=== PATIENT | male | born 1980 | race Two or more races ===

== ENCOUNTER → 2025-03-10 | Outpatient (CLI) | payer SELFPAY ==
--- NOTE | 2025-03-10 14:46 | XR_ITS ---
Examination: Fingers, right hand fourth digit 3 views Technique: AP, oblique, lateral views right hand fourth digit 3 views. Exam date and time: March 10, 2025 1448 hours INDICATIONS: Pain and swelling involving the fourth digit post injury February 20, 2025 FINDINGS: Soft tissue swelling fourth digit No foreign body No ga cortical bone destruction IMPRESSION: No ga cortical bone destruction
== END | disposition home or self-care (01) ==
DX: S69.91XA Unspecified injury of right wrist, hand and finger(s), initial encounter (principal); X58.XXXA Exposure to other specified factors, initial encounter
CPT/HCPCS: 73140

== ENCOUNTER 2025-05-06 12:26 | Inpatient (IN) | payer MEDICAID, SELFPAY ==
[2025-05-06 12:38] VITALS: BP 122/82; PULSE 81; RESP 17; TEMP 36.9; O2SAT 97
--- NOTE | 2025-05-06 12:43 | XR_ITS ---
Examination: Duplex scan of the lower extremity, unilateral left complete Date and time of exam: May 06, 2025 1339 hours INDICATIONS: Left leg redness swelling and pain beginning 6 days ago Technique: Duplex scan of the extremity veins using B-mode/grayscale imaging and Doppler spectral analysis and color flow Attention is directed to internal echogenicity, compression and augmentation involving these veins, color flow assessment, spectral analysis Findings: Major deep venous structures in the extremity demonstrate normal course and caliber. There is no evidence of deep vein thrombosis. Normal color flow and spectral analysis Impression: Negative for DVT..
--- NOTE | 2025-05-06 12:44 | PD.EDRME ---
Rapid Medical Screening Exam E Arrival date/time: 05/06/25 12:26 45-year-old male with no known medical history presents to the emergency room with a chief complaint of swelling and tenderness to his left leg. The swelling starts in the calf and extends all the way to the thigh. Patient has had this swelling for the last 8 days and was sent over by his primary care provider to rule out DVT I have greeted and performed a focused initial assessment of this patient. A comprehensive ED assessment and evaluation of the patient, analysis of all test results, and completion of the medical decision making process will be conducted by additional ED providers. Chief Complaint: Extremity Problem,Nontraumatic Time Seen by Provider: 05/06/25 12:31 Vital signs: Vital Signs Temperature 98.4 F 05/06/25 12:38 Pulse Rate 81 05/06/25 12:38 Respiratory Rate 17 05/06/25 12:38 Blood Pressure 122/82 05/06/25 12:38 Pulse Oximetry (%) 97 05/06/25 12:38 Oxygen Delivery Method Room Air 05/06/25 12:38 Vital signs reviewed by provider: Yes
[2025-05-06 13:26] LABS: Basophils # (Auto) 0.0 Thou/mm3 (0.0-0.2); Basophils % (Auto) 0 % (0-2.5); Eosinophils # (Auto) 0.1 Thou/mm3 (0.0-0.5); Eosinophils % (Auto) 0 % (0-10); Hematocrit 40.5 % (41.0-53.0); Hemoglobin 13.4 g/dL (13.5-16.0); Immature Granulocytes Auto 0.12 Thou/mm3 (0.00-0.00); Lymphocytes # (Auto) 3.2 Thou/mm3 (1.0-4.8); Lymphocytes % (Auto) 23 % (10-50); Mean Corpuscular HGB Conc 33.1 g/dl (31.0-37.0); Mean Corpuscular Hemoglobin 29.6 pg (25.0-35.0); Mean Corpuscular Volume 89 fL (80-100); Monocytes # (Auto) 0.7 Thou/mm3 (0.0-0.8); Monocytes % (Auto) 5 % (0-12); Neutrophils # (Auto) 9.9 Thou/mm3 (1.8-7.7); Neutrophils % (Auto) 71 % (37-80); Nucleated Red Blood Cell # 0.00 Thou/mm3 (0.00-0.00); Nucleated Red Blood Cell % 0 /100 WBC (0); Platelet Count 262 Thou/mm3 (140-440); RDW Standard Deviation 43.8 fL (35.1-43.9); Red Blood Count 4.53 Miln/mm3 (4.50-5.90); White Blood Count 13.9 Thou/mm3 (3.8-10.6)
[2025-05-06 13:41] LABS: INR 1.0 (0.9-1.3); Partial Thromboplastin Time 27.4 Seconds (22.0-36.0); Prothrombin Time 11.4 Seconds (9.0-12.2)
[2025-05-06 13:44] LABS: Alanine Aminotransferase 27 U/L (10-49); Albumin, Serum 3.8 gm/dL (3.5-5.0); Albumin/Globulin Ratio 1.4 (1.2-2.2); Alkaline Phosphatase 67 U/L (46-116); Anion Gap 11 (7-16); Aspartate Amino Transferase 21 U/L (0-34); BUN/Creatinine Ratio 23 Ratio (12-20); Bilirubin,Total 0.7 mg/dL (0.3-1.2); Blood Urea Nitrogen 16 mg/dL (9-23); Calcium 9.0 mg/dL (8.3-10.6); Calcium (Corrected) 9.2 mg/dL (8.5-10.1); Carbon Dioxide 24.1 mMol/L (20.0-31.0); Chloride 103 mMol/L (98-107); Creatinine (Component) 0.7 mg/dL (0.6-1.3); Globulin 2.7 gm/dL (2.3-3.5); Glucose 163 mg/dL (74-106); Osmolality,Calculated 280 (275-295); Potassium 3.3 mMol/L (3.4-5.1); Sodium 138 mMol/L (136-145); Total Protein 6.5 gm/dL (5.7-8.2); eGFR > 60 See Note
[2025-05-06 16:35] VITALS: BP 136/89; PULSE 69; RESP 18; TEMP 36.8; O2SAT 99
--- NOTE | 2025-05-06 16:40 | XR_ITS ---
Examination: CT left lower leg with intravenous contrast 2-D sagittal reconstructions. 2-D coronal reconstructions. 3-D reconstructions. Date and time of exam:May 06, 2025 1803 hrs. Indications: Left lower leg redness swelling and pain beginning one week ago CTDI: vol (mGy):5.61 DLP: (mGycm):416 Technique: Multiple 1.25 mm axial sections of the left lower extremity post intravenous administration 60 cc Isovue-[id number] have been obtained. 2-D sagittal and coronal reconstructions have been obtained. 3-D reconstructions have been obtained. Low dose protocols were performed. One or more of the following dose reduction techniques were used; automated exposure control, adjustment of the mA and/or KV according to patient size, use of iterative reconstruction technique. Findings: Significant knee effusion Irregular fluid collections posterior knee on the medial side, poorly defined, most consistent with popliteal cyst Fluid collection consistent with hematoma between the medial head of the gastrocnemius and the soleus muscle measuring up to 23 mm in thickness and at least 6.8 cm in cephalocaudad dimension No ga cortical bone destruction Significant edema surrounding the lower leg Impression: Significant knee effusion and probable popliteal cyst on the posterior medial side of the knee, consider internal derangement of the knee, suggest elective MRI knee without contrast follow-up 6.8 x 2.3 cm fluid/hematoma collection between the medial head of the gastrocnemius and soleus muscle, differential would include tear of the plantaris tendon,, abscess not excluded Recommend MRI lower leg without contrast follow-up
--- NOTE | 2025-05-06 16:48 | PD.EDEXREM ---
ED Extremity Problem RME/HPI General Chief complaint: Extremity Problem,Nontraumatic Stated complaint: Left lower leg swelling X 6 days Time Seen by Provider: 05/06/25 12:31 Arrival date/time: 05/06/25 12:26 RME / HPI RME / HPI Narrative: 05/06/25 12:26 45-year-old male with no known medical history presents to the emergency room with a chief complaint of swelling and tenderness to his left leg. The swelling starts in the calf and extends all the way to the thigh. Patient has had this swelling for the last 8 days and was sent over by his primary care provider to rule out DVT I have greeted and performed a focused initial assessment of this patient. A comprehensive ED assessment and evaluation of the patient, analysis of all test results, and completion of the medical decision making process will be conducted by additional ED providers. DR. PETERSON CAST ED EVALUATION 45 year old male with no stated medical history presents to the ED with progressive left lower extremity swelling and pain beginning 8 days ago. States the pain began in the posterior aspect of the left knee and have gradually worsened, now radiating down the leg. Describes the pain as a burning sensation and reports associated redness and increased warmth from the knee down to his foot. 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 He continued working despite his symptoms. Denies any trauma, insect bites, open wounds, or prior similar episodes. Related Data Previous Rx's ?Medication ?Instructions ?Recorded ibuprofen 600 mg tablet 600 mg PO QID PRN pain #40 tabs 05/23/21 Allergies Allergy/AdvReac Type Severity Reaction Status Date / Time No Known Allergies Allergy Verified 05/23/25 18:13 Review of Systems Review of Systems Systems Reviewed: All systems reviewed, normal except as documented Past Medical History Past Medical History CARDIAC: Negative Cardiac Disorders RESPIRATORY: Negative Asthma GENITOURINARY: Negative Renal Disease ENDOCRINE: Negative Diabetes Mellitus Type 2 HEMATOLOGIC: Negative Sickle Cell Disease Social History SMOKING STATUS: Never smoker ED Exam Narrative Physical exam: GENERAL APPEARANCE: alert and oriented x 4, well-developed, well-nourished, no acute distress HEENT: Normocephalic, atraumatic; pupils equal, round, reactive to light; EOMI; mucous membranes pink, moist; oropharynx clear NECK: Supple LUNGS: CTABL; no wheezes, no rales, no rhonchi HEART: Regular rate, regular rhythm; normal S1, S2; no murmurs ABDOMEN: non distended; normal BS; soft, no tenderness, no guarding, no rebound; no masses, no organomegaly, no hernia BACK: no CVA tenderness EXTREMITIES: 3+ edema and erythema with tenderness to palpation of the left lower extremity, good capillary refill, good pedal pulses NEUROLOGIC: awake; alert and oriented x4; cranial nerves II-XII grossly intact; no focal sensory or motor deficits PSYCHIATRIC: appropriate mood and affect SKIN: warm, dry, normal color; no rashes Course Quality Measures none Orders Category Date Time Status COVID-19 Screening Questionnaire NOW Care 05/06/25 21:[address] Screening NOW Care 05/06/25 16:42 Completed Insert IV NOW Care 05/06/25 17:09 Completed MRI Screening NOW Care 05/06/25 19:[address] lower leg LT w con Stat Exams 05/06/25 16:40 Completed US venous doppler LE LT Stat Exams 05/06/25 12:43 Completed CBC Stat Lab 05/06/25 13:15 Completed CMP [Comprehensive Metabolic Panel] Stat Lab 05/06/25 13:15 Completed PT [Prothrombin Time with INR] Stat Lab 05/06/25 13:15 Completed PTT [Partial Thromboplastin Time] Stat Lab 05/06/25 13:15 Completed Sed Rate (ESR) Stat Lab 05/06/25 13:15 Completed Morphine* Inj Med 05/06/25 16:40 Discontinued 4 mg IVP X1 ONE Ondansetron Inj [Zofran Inj] Med 05/06/25 16:40 Discontinued 4 mg IVP X1 ONE Piper/Tazo 3.375 gm Premix [Zosyn] Med 05/06/25 19:52 Discontinued 3.375 gm in 50 ml IV X1 Vancomycin/Ns 1 gm Ivpb 200 ml Med 05/06/25 19:53 Discontinued IV X1 Vital Signs Vital signs: Vital Signs Temperature 98.4 F 05/06/25 12:38 Pulse Rate 81 05/06/25 12:38 Respiratory Rate 17 05/06/25 12:38 Blood Pressure 122/82 05/06/25 12:38 Pulse Oximetry (%) 97 05/06/25 12:38 Oxygen Delivery Method Room Air 05/06/25 12:38 Pulse ox is 97% on room air which is adequate. Extremity Problem MDM Narrative MDM Narrative:: Sangita Fields, eun scribing for and in the presence of Dr. Whitfield. 1800: Patient signed out to Dr. Genao pending CT of the left lower extremity and final disposition. Patient data External records reviewed:: [facility] previous records (I reviewed ED visit on 05/23/2021 ) Clinical information provided by:: patient Social determinants that could affect healthcare access:: none Patient has the following chronic illnesses:: None reported How is presenting disease/condition affected by chronic disease/condition?: no chronic disease Evaluation data The following diagnostics were reviewed and interpreted by me:: lab results and radiology exam(s) Lab and/or radiology exams considered but not ordered:: None Interpretation Summary: Ordering Physician: Hans Jimenez Date of Service: 05/06/25 Procedure(s): US venous doppler LE Accession Number(s): [id number] cc: Hans Jimenez; Lowell Arevalo MD; Rafita Cota-Ritesh~ Examination: Duplex scan of the lower extremity, unilateral left complete Date and time of exam: May 06, 2025 1339 hours INDICATIONS: Left leg redness swelling and pain beginning 6 days ago Technique: Duplex scan of the extremity veins using B-mode/grayscale imaging and Doppler spectral analysis and color flow Attention is directed to internal echogenicity, compression and augmentation involving these veins, color flow assessment, spectral analysis Findings: Major deep venous structures in the extremity demonstrate normal course and caliber. There is no evidence of deep vein thrombosis. Normal color flow and spectral analysis Impression: Negative for DVT.. Dictated By: Lowell Arevalo MD Signed By: <Electronically signed by Lowell Arevalo MD in OV> 05/06/25 1404 Medications / Prescriptions Medications or Prescriptions considered but not ordered:: None Medication administrations:: Medication Administration History Discontinued Medications Acetaminophen (Acetaminophen 325 Mg Tablet) 650 mg PO Q6H PRN PRN Reason: PAIN SCALE 1-3 (mild Stop: 06/05/25 22:06 Acetaminophen (Acetaminophen 325 Mg Tablet) 650 mg PO Q6H PRN PRN Reason: Fever >100.4 Stop: 06/05/25 22:06 Last Admin: 05/06/25 23:16 Dose: 650 mg Documented By: PEREZ Acetaminophen (Acetaminophen 325 Mg Tablet) 650 mg PO Q6HR JAROD Stop: 05/19/25 07:44 Last Admin: 05/16/25 11:50 Dose: 650 mg Documented By: Admin: 05/16/25 06:06 Dose: 650 mg Documented By: Admin: 05/15/25 23:58 Dose: 650 mg Documented By: Admin: 05/15/25 17:49 Dose: 650 mg Documented By: Admin: 05/15/25 12:58 Dose: 650 mg Documented By: Admin: 05/15/25 05:48 Dose: 650 mg Documented By: Admin: 05/14/25 23:56 Dose: 650 mg Documented By: Admin: 05/14/25 17:40 Dose: 650 mg Documented By: Admin: 05/14/25 12:02 Dose: 650 mg Documented By: Admin: 05/14/25 05:24 Dose: 650 mg Documented By: Admin: 05/13/25 23:30 Dose: 650 mg Documented By: Admin: 05/13/25 17:38 Dose: 650 mg Documented By: Admin: 05/13/25 11:25 Dose: 650 mg Documented By: Admin: 05/13/25 06:11 Dose: 650 mg Documented By: Admin: 05/13/25 01:08 Dose: 650 mg Documented By: Admin: 05/12/25 17:48 Dose: 650 mg Documented By: Admin: 05/12/25 13:53 Dose: Not Given Documented By: ANALISA Non-Admin Reason: Not In Room Admin: 05/12/25 09:34 Dose: 650 mg Documented By: ANALISA Hydrocodone Bitart/Acetaminophen (Hydrocodone/Apap 10/325 Tab) 1 tab PO Q4HR PRN PRN Reason: PAIN SCALE 7-10 (Severe Stop: 05/11/25 22:06 Last Admin: 05/11/25 04:42 Dose: 1 tab Documented By: Admin: 05/10/25 21:38 Dose: 1 tab Documented By: Admin: 05/10/25 17:17 Dose: 1 tab Documented By: SC Admin: 05/10/25 12:04 Dose: 1 tab Documented By: SC Admin: 05/10/25 07:58 Dose: 1 tab Documented By: SC Admin: 05/10/25 03:06 Dose: 1 tab Documented By: Admin: 05/09/25 17:58 Dose: 1 tab Documented By: Admin: 05/09/25 09:55 Dose: 1 tab Documented By: Admin: 05/09/25 02:36 Dose: 1 tab Documented By: Admin: 05/08/25 18:00 Dose: 1 tab Documented By: Admin: 05/08/25 08:33 Dose: 1 tab Documented By: Admin: 05/08/25 01:48 Dose: 1 tab Documented By: Admin: 05/07/25 16:37 Dose: 1 tab Documented By: Admin: 05/07/25 08:11 Dose: 1 tab Documented By: Admin: 05/06/25 22:45 Dose: 1 tab Documented By: BD Cefazolin Sodium (Cefazolin Inj 1 Gm Vial) Confirm Administered Dose 2 gm .ROUTE .STK-MED ONE Stop: 05/07/25 12:03 Fentanyl Citrate (Fentanyl Cit Inj 50 Mcg/Ml Amp 2ml) Confirm Administered Dose 100 mcg .ROUTE .STK-MED ONE Stop: 05/07/25 11:10 Fentanyl Citrate (Fentanyl Cit Inj 50 Mcg/Ml Amp 2ml) Confirm Administered Dose 100 mcg .ROUTE .STK-MED ONE Stop: 05/07/25 12:37 Fentanyl Citrate (Fentanyl Cit Inj 50 Mcg/Ml Amp 2ml) 50 mcg IVP X1 ONE Stop: 05/07/25 14:39 Last Admin: 05/07/25 14:45 Dose: 50 mcg Documented By: HADLEY Heparin Sodium (Beef Lung) (Heparin Sod Lock Syr 100 Unit/Ml) Confirm Administered Dose 500 unit .ROUTE .STK-MED ONE Stop: 05/16/25 10:07 Last Admin: 05/16/25 10:56 Dose: Not Given Documented By: Non-Admin Reason: Duplicate Medication on eMAR Heparin Sodium (Beef Lung) (Heparin Sod Lock Syr 100 Unit/Ml) 500 unit [facility] X1 ONE Stop: 05/16/25 10:01 Heparin Sodium (Porcine) (Heparin Sod Inj 5000 Unit/Ml Vial) 5,000 unit SC Q8HR JAROD Stop: 05/21/25 05:59 Last Admin: 05/15/25 14:23 Dose: 5,000 unit Documented By: JAN Co-signed By: NICOLE Admin: 05/15/25 05:49 Dose: 5,000 unit Documented By: ALEXUS Co-signed By: MAHENDRA(2) Admin: 05/14/25 22:04 Dose: 5,000 unit Documented By: ALEXUS Co-signed By: GREGORY Admin: 05/14/25 15:07 Dose: 5,000 unit Documented By: MANOJ Co-signed By: FLOR Admin: 05/14/25 05:25 Dose: 5,000 unit Documented By: MAHENDRA Co-signed By: Admin: 05/13/25 21:15 Dose: 5,000 unit Documented By: MAHENDRA Co-signed By: CHASE Admin: 05/13/25 14:27 Dose: 5,000 unit Documented By: ANALISA Co-signed By: JOSE MARIA Admin: 05/13/25 06:12 Dose: 5,000 unit Documented By: PHUC Co-signed By: AU Admin: 05/12/25 21:32 Dose: 5,000 unit Documented By: PHUC Co-signed By: MRLesvia Admin: 05/12/25 14:32 Dose: 5,000 unit Documented By: ANALISA Co-signed By: GREGORY(2) Admin: 05/12/25 05:21 Dose: 5,000 unit Documented By: Co-signed By: Admin: 05/11/25 21:06 Dose: 5,000 unit Documented By: Co-signed By: MAHENDRA(2) Admin: 05/11/25 13:27 Dose: 5,000 unit Documented By: MANOJ(2) Co-signed By: NICOLE Admin: 05/11/25 05:23 Dose: 5,000 unit Documented By: Co-signed By: MRLesvia Admin: 05/10/25 21:42 Dose: 5,000 unit Documented By: Co-signed By: MRG Admin: 05/10/25 13:29 Dose: 5,000 unit Documented By: SC Co-signed By: AR Admin: 05/10/25 05:19 Dose: 5,000 unit Documented By: CORNELIA Co-signed By: Admin: 05/09/25 22:54 Dose: 5,000 unit Documented By: PG Co-signed By: JOSE G Admin: 05/09/25 14:44 Dose: 5,000 unit Documented By: TD Co-signed By: JAN Admin: 05/09/25 05:11 Dose: 5,000 unit Documented By: DONI Co-signed By: SANJU Admin: 05/08/25 21:16 Dose: 5,000 unit Documented By: DONI Co-signed By: CHASE Admin: 05/08/25 13:20 Dose: 5,000 unit Documented By: JOSE MARIA Co-signed By: SY Admin: 05/08/25 05:19 Dose: 5,000 unit Documented By: SANJU Co-signed By: CTF Admin: 05/07/25 21:05 Dose: 5,000 unit Documented By: SANJU Co-signed By: CTF Admin: 05/07/25 14:00 Dose: Not Given Documented By: VIOLETTA Non-Admin Reason: pt in surgery Admin: 05/07/25 05:09 Dose: Not Given Documented By: PHILLY Non-Admin Reason: held per MD order Piperacillin/Tazobactam/Dextrose (Zosyn) 3.375 gm in 50 mls @ 100 mls/hr IV X1 ONE; Protocol Stop: 05/06/25 20:21 Last Infusion: 05/06/25 20:47 Dose: Infused Documented By: Admin: 05/06/25 20:10 Dose: 100 mls/hr Documented By: BD Vancomycin/Sodium Chloride (Vancomycin/Ns 1 Gm Ivpb) 200 mls @ 120 mls/hr IV X1 ONE Stop: 05/06/25 21:32 Last Infusion: 05/06/25 22:37 Dose: Infused Documented By: Admin: 05/06/25 20:48 Dose: 120 mls/hr Documented By: BD Piperacillin/Tazobactam/Dextrose (Zosyn) 3.375 gm in 50 mls @ 100 mls/hr IV Q6HR JAROD; Protocol Stop: 05/14/25 00:00 Last Admin: 05/07/25 05:10 Dose: 100 mls/hr Documented By: Infusion: 05/07/25 00:57 Dose: Infused Documented By: Admin: 05/07/25 00:27 Dose: 100 mls/hr Documented By: PHILLY Sodium Chloride (Ns) 1,000 mls @ 100 mls/hr IV .Q10H JAROD Stop: 05/07/25 08:14 Last Infusion: 05/07/25 08:46 Dose: Infused Documented By: Admin: 05/06/25 22:46 Dose: 100 mls/hr Documented By: BD Potassium Chloride (Kcl Ivpb) 10 meq in 100 mls @ 100 mls/hr IV Q1H JAORD Stop: 05/07/25 02:14 Last Admin: 05/07/25 02:12 Dose: 100 mls/hr Documented By: Infusion: 05/07/25 02:06 Dose: Infused Documented By: Admin: 05/07/25 01:06 Dose: 100 mls/hr Documented By: Infusion: 05/07/25 00:54 Dose: Infused Documented By: Admin: 05/06/25 23:54 Dose: 100 mls/hr Documented By: Infusion: 05/06/25 23:47 Dose: Infused Documented By: Admin: 05/06/25 22:47 Dose: 100 mls/hr Documented By: BD Vancomycin HCl (Vancomycin/Water 1250 Mg Ivpb) 250 mls @ 120 mls/hr IV BID@1000,2200 JAROD; Protocol Stop: 05/14/25 09:59 Last Admin: 05/08/25 22:08 Dose: 120 mls/hr Documented By: Infusion: 05/08/25 12:48 Dose: Infused Documented By: Admin: 05/08/25 10:43 Dose: 120 mls/hr Documented By: JOSE MARIA Infusion: 05/07/25 23:46 Dose: Infused Documented By: JOSE MARIA Admin: 05/07/25 21:41 Dose: 120 mls/hr Documented By: Infusion: 05/07/25 12:22 Dose: Infused Documented By: Admin: 05/07/25 10:17 Dose: 120 mls/hr Documented By: VIOLETTA Cefepime HCl 2 gm/ Sodium (Chloride) 50 mls @ 100 mls/hr IV Q8HR JAROD Stop: 05/14/25 11:29 Last Admin: 05/09/25 05:11 Dose: 100 mls/hr Documented By: Infusion: 05/08/25 21:43 Dose: Infused Documented By: Admin: 05/08/25 21:13 Dose: 100 mls/hr Documented By: Infusion: 05/08/25 13:49 Dose: Infused Documented By: Admin: 05/08/25 13:19 Dose: 100 mls/hr Documented By: Infusion: 05/08/25 05:49 Dose: Infused Documented By: Admin: 05/08/25 05:19 Dose: 100 mls/hr Documented By: Infusion: 05/07/25 21:35 Dose: Infused Documented By: Admin: 05/07/25 21:05 Dose: 100 mls/hr Documented By: Admin: 05/07/25 11:35 Dose: Not Given Documented By: DM Non-Admin Reason: pt in surgery Acetaminophen (Ofirmev Inj) 1,000 mg in 100 mls @ 250 mls/hr IV X1 ONE Stop: 05/07/25 15:01 Last Infusion: 05/07/25 15:14 Dose: Infused Documented By: Admin: 05/07/25 14:50 Dose: 250 mls/hr Documented By: HADLEY Vancomycin HCl/Dextrose (Vancomycin/D5w 1500 Mg Ivpb) 300 mls @ 120 mls/hr IV BID@1000,2200 JAROD; Protocol Stop: 05/16/25 09:59 Last Admin: 05/09/25 09:47 Dose: 120 mls/hr Documented By: JOSE MARIA Ceftriaxone Sodium 2 gm/ (Sodium Chloride) 50 mls @ 100 mls/hr IV QDAY JAROD Stop: 06/04/25 12:00 Last Admin: 05/09/25 11:21 Dose: Not Given Documented By: TD Non-Admin Reason: Duplicate Medication on eMAR Ceftriaxone Sodium/Dextrose (Rocephin/D5w 2gm) 2 gm in 50 mls @ 100 mls/hr IV QDAY JAROD Stop: 06/04/25 12:00 Last Admin: 05/16/25 08:11 Dose: 100 mls/hr Documented By: Infusion: 05/15/25 10:03 Dose: Infused Documented By: Admin: 05/15/25 09:33 Dose: 100 mls/hr Documented By: Infusion: 05/14/25 08:52 Dose: Infused Documented By: Admin: 05/14/25 08:22 Dose: 100 mls/hr Documented By: Infusion: 05/13/25 09:25 Dose: Infused Documented By: Admin: 05/13/25 08:55 Dose: 100 mls/hr Documented By: TORRArabella Infusion: 05/12/25 09:53 Dose: Infused Documented By: [email or web address] Admin: 05/12/25 09:23 Dose: 100 mls/hr Documented By: av Infusion: 05/11/25 09:48 Dose: Infused Documented By: MANOJ(2) Admin: 05/11/25 09:05 Dose: 100 mls/hr Documented By: MANOJ(2) Infusion: 05/10/25 08:27 Dose: Infused Documented By: KA(2) Admin: 05/10/25 07:57 Dose: 100 mls/hr Documented By: SC Infusion: 05/09/25 11:46 Dose: Infused Documented By: SC Admin: 05/09/25 11:16 Dose: 100 mls/hr Documented By: TD Ibuprofen (Ibuprofen Tab 200 Mg Tablet) 200 mg PO Q6HR JAROD Stop: 05/19/25 11:59 Ketorolac Tromethamine (Ketorolac Inj 30 Mg/Ml Vial) 30 mg IVP X1 ONE Stop: 05/07/25 14:39 Last Admin: 05/07/25 14:51 Dose: 30 mg Documented By: HADLEY Lidocaine HCl (Lidocaine Inj Pf 1% 30 Ml Vial) Confirm Administered Dose 30 ml .ROUTE .STK-MED ONE Stop: 05/16/25 10:07 Last Admin: 05/16/25 10:56 Dose: Not Given Documented By: JR Non-Admin Reason: Duplicate Medication on eMAR Lidocaine HCl (Lidocaine Inj Pf 1% 5 Ml Vial) 1 ml INFL X1 ONE Stop: 05/16/25 10:51 Lorazepam (Lorazepam 0.5 Mg Tablet) 1 mg PO X1 ONE Stop: 05/15/25 08:28 Melatonin (Melatonin 3 Mg Tablet) 6 mg PO X1 ONE Stop: 05/12/25 01:03 Last Admin: 05/12/25 01:08 Dose: 6 mg Documented By: Midazolam HCl (Midazolam Inj 1 Mg/Ml Vial 2 Ml) Confirm Administered Dose 2 mg .ROUTE .STK-MED ONE Stop: 05/07/25 11:10 Morphine Sulfate (Morphine Sulf Inj 4 Mg/Ml Vial) 4 mg IVP X1 ONE Stop: 05/06/25 16:41 Last Admin: 05/06/25 18:00 Dose: 4 mg Documented By: JUAN Morphine Sulfate (Morphine Sulf Inj 4 Mg/Ml Vial) 2 mg IVP Q6HR PRN PRN Reason: PAIN SCALE 7-10 (Severe Stop: 05/16/25 09:50 Last Admin: 05/16/25 03:45 Dose: 2 mg Documented By: Admin: 05/15/25 09:42 Dose: 2 mg Documented By: Admin: 05/14/25 22:35 Dose: 2 mg Documented By: Admin: 05/14/25 15:12 Dose: 2 mg Documented By: Admin: 05/13/25 10:00 Dose: 2 mg Documented By: Admin: 05/13/25 00:03 Dose: 2 mg Documented By: Admin: 05/12/25 17:48 Dose: 2 mg Documented By: Admin: 05/12/25 11:21 Dose: 2 mg Documented By: Admin: 05/12/25 05:17 Dose: 2 mg Documented By: Admin: 05/11/25 23:05 Dose: 2 mg Documented By: Admin: 05/11/25 17:11 Dose: 2 mg Documented By: MANOJ(2) Admin: 05/11/25 10:38 Dose: 2 mg Documented By: MANOJ(2) Comments: mg Ondansetron HCl (Ondansetron Inj 2 Mg/Ml Inj 2 Ml) 4 mg IVP X1 ONE Stop: 05/06/25 16:41 Last Admin: 05/06/25 18:00 Dose: 4 mg Documented By: JUAN Ondansetron HCl (Ondansetron Inj 2 Mg/Ml Inj 2 Ml) 4 mg IVP Q6H PRN; Protocol PRN Reason: NAUSEA OR VOMITING Stop: 06/05/25 22:06 Oxycodone HCl (Oxycodone Hcl 5 Mg Ir Tab) 5 mg PO Q6HR PRN PRN Reason: PAIN SCALE 4-6 (Moderate Stop: 05/16/25 08:25 Oxycodone HCl (Oxycodone Hcl 5 Mg Ir Tab) 5 mg PO Q6HR PRN PRN Reason: PAIN SCALE 4-6 (Moderate Stop: 05/16/25 09:55 Last Admin: 05/15/25 20:01 Dose: 5 mg Documented By: Admin: 05/15/25 12:05 Dose: 5 mg Documented By: Admin: 05/15/25 04:30 Dose: 5 mg Documented By: Admin: 05/14/25 20:28 Dose: 5 mg Documented By: MAHENDRA(2) Admin: 05/14/25 09:59 Dose: 5 mg Documented By: Admin: 05/14/25 03:49 Dose: 5 mg Documented By: Admin: 05/13/25 21:15 Dose: 5 mg Documented By: Admin: 05/13/25 14:26 Dose: 5 mg Documented By: Admin: 05/12/25 09:23 Dose: 5 mg Documented By: elizabeth Admin: 05/12/25 02:56 Dose: 5 mg Documented By: Admin: 05/11/25 21:04 Dose: 5 mg Documented By: Admin: 05/11/25 14:36 Dose: 5 mg Documented By: MIGUEL A) Oxycodone/Acetaminophen (Oxycodone/Apap 5/325 Tablet) 1 tab PO Q6H PRN PRN Reason: PAIN SCALE 4-6 (Moderate Stop: 05/11/25 22:06 Last Admin: 05/11/25 08:24 Dose: 1 tab Documented By: MIGUEL A) Admin: 05/10/25 23:55 Dose: 1 tab Documented By: Admin: 05/10/25 15:46 Dose: 1 tab Documented By: SC Admin: 05/10/25 09:18 Dose: 1 tab Documented By: SC Admin: 05/09/25 20:36 Dose: 1 tab Documented By: Admin: 05/09/25 14:40 Dose: 1 tab Documented By: JOSE MARIA Admin: 05/09/25 08:17 Dose: 1 tab Documented By: Admin: 05/08/25 19:30 Dose: 1 tab Documented By: Admin: 05/08/25 13:19 Dose: 1 tab Documented By: Admin: 05/08/25 05:19 Dose: 1 tab Documented By: Admin: 05/07/25 00:16 Dose: 1 tab Documented By: AU Pantoprazole Sodium (Pantoprazole Inj 40 Mg Vial) 40 mg IVP QDAY JAROD Stop: 06/06/25 08:59 Last Admin: 05/11/25 09:04 Dose: 40 mg Documented By: MIGUEL A) Admin: 05/10/25 07:58 Dose: 40 mg Documented By: SC Admin: 05/09/25 09:47 Dose: 40 mg Documented By: Admin: 05/08/25 08:17 Dose: 40 mg Documented By: Admin: 05/07/25 08:15 Dose: 40 mg Documented By: DM Pantoprazole Sodium (Pantoprazole 40 Mg Tablet) 40 mg PO QDAY JAROD Stop: 06/11/25 08:59 Last Admin: 05/16/25 08:11 Dose: Not Given Documented By: AR Non-Admin Reason: NPO Admin: 05/15/25 09:33 Dose: 40 mg Documented By: Admin: 05/14/25 08:22 Dose: 40 mg Documented By: Admin: 05/13/25 08:54 Dose: 40 mg Documented By: Admin: 05/12/25 09:21 Dose: 40 mg Documented By: elizabeth Pharmacy Consult (Vancomycin Pharmacy To Dose 1 Each Each) 1 each IV QDAY PRN PRN Reason: PROTOCOL Stop: 06/06/25 08:59 Potassium Chloride (Potassium Chloride 20 Meq Tabcr) 40 meq PO X1 ONE Stop: 05/06/25 22:12 Last Admin: 05/06/25 22:45 Dose: 40 meq Documented By: BD Propofol (Propofol Inj 10 Mg/Ml Vial 20 Ml) Confirm Administered Dose 200 mg IV .STK-MED ONE Stop: 05/07/25 11:10 Sennosides (Senna/Docusate Sod 1 Tab Tablet) 1 tab PO QDAY JAROD; Protocol Stop: 06/10/25 10:14 Last Admin: 05/16/25 08:11 Dose: Not Given Documented By: AR Non-Admin Reason: NPO Admin: 05/15/25 09:33 Dose: 1 tab Documented By: Admin: 05/14/25 08:22 Dose: 1 tab Documented By: Admin: 05/13/25 08:54 Dose: 1 tab Documented By: Admin: 05/12/25 09:21 Dose: 1 tab Documented By: elizabeth Admin: 05/11/25 10:38 Dose: 1 tab Documented By: MANOJ(2) Sevoflurane (Sevoflurane 15 Min/Unit Ea) Confirm Administered Dose 15 min INH .STK-MED ONE Stop: 05/07/25 13:24 See above Consultations Consultation(s) initiated? (list below): No Diagnosis Extremity Problem Differential Diagnosis: gout, cellulitis, lower extremity edema and deep vein thrombosis of lower extremity Most likely diagnosis given after review of the tests above:: Left leg pain and swelling Admission Indicated Admission indicated?: not indicated Explain why admission is indicated or not indicated:: Signed out pending CT and final disposition. Admission Request Was there a request for admission?: No Disposition Plan Disposition Plan: other (specify) (Signed out to Dr. Garrett ) Discharge Plan Plan Patient Disposition: Admit Acute Care w/in Hospital Patient condition on transfer: Stable Problem List Clinical Impression: Lower extremity pain
[2025-05-06 17:07] LABS: Sed Rate (ESR) 94 mm/hr (0-15)
[2025-05-06 17:27] VITALS: BMI 27.3
[2025-05-06] MEDS: MORPHINE SULF INJ 4 MG/ML VIAL IVP (18:00)
[2025-05-06] MEDS: ONDANSETRON INJ 2 MG/ML INJ 2 ML 4 MG IVP (18:00)
--- NOTE | 2025-05-06 18:26 | EDNOTE_ITS ---
Emergency Room Addendum <Miesha Tom - Last Filed: 05/06/25 19:19> Addendum Narrative: 1800: Care assumed from Dr. Whitfield, the previous shift emergency physician. Past medical, surgical, social and family history reviewed. Vitals and home medications reviewed. Results and treatment plan discussed. I will assume the care of the patient at this time and will follow the patient. Please refer to the emergency department record for history and examination from initial visit. RADIOLOGY RESULTS: [facility] Report Signed Patient: ROSMERY RIOJAS [facility]. Record#: [id number] Birthdate: 1980 Age/Sex: 45 / M Location: [facility] Attending Dr: Ordering Physician: Sarah Whitfield MD Date of Service: 05/06/25 Procedure(s): CT lower leg LT w con Accession Number(s): [id number] cc: Lowell Arevalo MD; Sarah Whitfield MD; Rafita Cota-C~ Examination: CT left lower leg with intravenous contrast 2-D sagittal reconstructions. 2-D coronal reconstructions. 3-D reconstructions. Date and time of exam:May 06, 2025 1803 hrs. Indications: Left lower leg redness swelling and pain beginning one week ago CTDI: vol (mGy):5.61 DLP: (mGycm):416 Technique: Multiple 1.25 mm axial sections of the left lower extremity post intravenous administration 60 cc Isovue-[id number] have been obtained. 2-D sagittal and coronal reconstructions have been obtained. 3-D reconstructions have been obtained. Low dose protocols were performed. One or more of the following dose reduction techniques were used; automated exposure control, adjustment of the mA and/or KV according to patient size, use of iterative reconstruction technique. Findings: Significant knee effusion Irregular fluid collections posterior knee on the medial side, poorly defined, most consistent with popliteal cyst Fluid collection consistent with hematoma between the medial head of the gastrocnemius and the soleus muscle measuring up to 23 mm in thickness and at least 6.8 cm in cephalocaudad dimension No ga cortical bone destruction Significant edema surrounding the lower leg Impression: Significant knee effusion and probable popliteal cyst on the posterior medial side of the knee, consider internal derangement of the knee, suggest elective MRI knee without contrast follow-up 6.8 x 2.3 cm fluid/hematoma collection between the medial head of the gastrocnemius and soleus muscle, differential would include tear of the plantaris tendon,, abscess not excluded Recommend MRI lower leg without contrast follow-up Dictated By: Lowell Arevalo MD Signed By: <Electronically signed by Lowell Arevalo MD in OV> 05/06/25 1911 <Lizandro Garrett, DO - Last Filed: 05/06/25 19:58> Addendum Narrative: 1800: Care assumed from Dr. Whitfield, the previous shift emergency physician. Past medical, surgical, social and family history reviewed. Vitals and home medications reviewed. Results and treatment plan discussed. I will assume the care of the patient at this time and will follow the patient. Please refer to the emergency department record for history and examination from initial visit. RADIOLOGY RESULTS: [facility] Report Signed Patient: ROSMERY RIOJAS. Record#: [id number] Birthdate: 1980 Age/Sex: 45 / M Location: [facility] Attending Dr: Ordering Physician: Sarah Whitfield MD Date of Service: 05/06/25 Procedure(s): CT lower leg LT w con Accession Number(s): [id number] cc: Lowell Arevalo MD; Sarah Whitfield MD; Rafita Cota [employer]-C~ Examination: CT left lower leg with intravenous contrast 2-D sagittal reconstructions. 2-D coronal reconstructions. 3-D reconstructions. Date and time of exam:May 06, 2025 1803 hrs. Indications: Left lower leg redness swelling and pain beginning one week ago CTDI: vol (mGy):5.61 DLP: (mGycm):416 Technique: Multiple 1.25 mm axial sections of the left lower extremity post intravenous administration 60 cc Isovue-[id number] have been obtained. 2-D sagittal and coronal reconstructions have been obtained. 3-D reconstructions have been obtained. Low dose protocols were performed. One or more of the following dose reduction techniques were used; automated exposure control, adjustment of the mA and/or KV according to patient size, use of iterative reconstruction technique. Findings: Significant knee effusion Irregular fluid collections posterior knee on the medial side, poorly defined, most consistent with popliteal cyst Fluid collection consistent with hematoma between the medial head of the gastrocnemius and the soleus muscle measuring up to 23 mm in thickness and at least 6.8 cm in cephalocaudad dimension No ga cortical bone destruction Significant edema surrounding the lower leg Impression: Significant knee effusion and probable popliteal cyst on the posterior medial side of the knee, consider internal derangement of the knee, suggest elective MRI knee without contrast follow-up 6.8 x 2.3 cm fluid/hematoma collection between the medial head of the gastrocnemius and soleus muscle, differential would include tear of the plantaris tendon,, abscess not excluded Recommend MRI lower leg without contrast follow-up Dictated By: Lowell Arevalo MD Signed By: <Electronically signed by Lowell Arevalo MD in OV> 05/06/251910 \ CT scan of the left lower extremity came back showing a fluid collection between the medial head of the gastrocnemius and soleus musculature with the differential including hematoma and/or abscess. I reviewed the patient's lab work and went and examined the patient. Doppler ultrasound to the left lower extremity showed no evidence of DVT. He does have swelling from the ankle to the knee with erythema from the medial portion of the calf extending to the anterior portion of the tibia as well. No fluctuance. Strong dorsalis pedis and posterior tibial pulse on the left side. There is swelling warmth tenderness and erythema which means cellulitis. However, this fluid collection between the medial head of the gastrocnemius and soleus musculature is of concern for possible abscess. I will give the patient Zosyn 3.375 g IV here in the emergency room as well as vancomycin 1 g IV. I have spoken with orthopedic surgeon Dr. Schaffer who asked for an MRI of the lower extremity to be obtained with and without contrast. This will be ordered. I will discuss this case with the hospitalist. Again, the patient denies trauma to the left lower extremity. He has no past medical problems. He is not on antiplatelet or anticoagulation medication. Platelet count is normal. Patient is not coagulopathic with a normal PTT and INR.
[2025-05-06 19:52] VITALS: BP 147/86; PULSE 72; RESP 19; TEMP 37.3; O2SAT 97
[2025-05-06] MEDS: PIPER/TAZO 3.375 GM PREMIX 3.375 GM/50 ML BAG IV (20:10)
[2025-05-06] MEDS: VANCOMYCIN/NS 1 GM IVPB 200 ML IV (20:48)
--- NOTE | 2025-05-06 22:26 | ESHP_ITS ---
Documentation for date of: 05/06/25 [facility] History of Present Illness History of present illness: This is a 45-year-old male with no PMHx presenting to the ED with left lower extremity pain and swelling. Reports a gradual onset of LLE pain and swelling that started 4 days ago. Initially he noted swelling behind the knee that continued to enlarge over the knee and now involving the entire leg. Pain was also gradual, located mainly behind the knee, triggered by movement and touch. Currently unable to walk on his foot because of the pain. Denies history of diabetes. No previous similar symptoms. 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 Additionally, reports a week long of dysuria with dark urine but no hematuria but no pendile discharge. Denies knee effusion or discharge. Denies headache, fever, chills, fall or trauma, chest pain, sob, abdominal pain, NVDC, urinary urgency or frequency. Past Medical History: * None. Past Surgical History: * None. Medications: * None. Allergies: * NKA. Family History: * Noncontributory. Social History: * Works in the [employer]. Denies alcohol, tobacco or drug use. ED Course: * Afebrile, BP 122/82, HR 81, satting well on room air. * WBC 13.9 with left shift, normal Hgb and PLT. * Normal Coag panel. * Chem panel significant for potassium 3.3, glucose 163. * Normal renal and liver function. * Venous doppler negative for LE DVT bilaterally. * LLE CT showed significant knee effusion and probable popliteal cyst on the posterior medial side of the knee, 6.8 x 2.3 cm fluid/hematoma collection between the medial head of the gastrocnemius and soleus muscle. Ortho was consulted over the phone by ED physician who recommended MRI and possible intervention by general surgery. Reason for admission: Significant soft-tissue infection of LLE with CT findings as above. Admitted for MRI to better characterize the source of infection and IV antibiotics. General surgery consulted and recommendations pending. Exam Vital Signs Temp Pulse Resp BP Pulse Ox O2 Del Method 99.2 F 72 19 147/86 H 97 Room Air 05/06/25 19:52 05/06/25 19:52 05/06/25 19:52 05/06/25 19:52 05/06/25 19:52 05/06/25 19:52 Narrative Exam GENERAL * Normal appearing male, in mild distress 2/2 pain. HEENT * NCAT.?JORDAN. Oral mucosa is moist. Patent Nares NECK * Supple, nontender, no JVD. CHEST * RRR, no m/g/r * CTAB, no w/r/r, symmetrical expansion. ABDOMEN * Soft, flat, nontender. No guarding/rebound tenderness/masses. * Bowel sounds presents LEFT LOWER EXTREMITIES * Significant edema, erythema and tenderness involving the entire LLE, extending half way proximally above the knee. Significant warm over anterior and posterior compartment below the knee. No signs of knee effusion or discharge. No evidence of open wound or skin puncture. Mobility limited from pain but intact. Unable to access for knee crepitus due to pain. * RLE intact. SKIN * Warm and dry, no jaundice/rashes. Other findings as above. NEUROMUSCULAR * No lumbar or midline, no CVA, no paraspinal muscle spasm or tenderness. * No focal neurologic deficits. PSYCHIATRY * Normal mood and affect, cooperative, no SI or HI or hallucinations. Results: Labs 05/06/25 13:15 05/06/25 13:15 Labs: Short CBC 05/06/25 Range/Units 13:15 WBC 13.9 H (3.8-10.6) Thou/mm3 Hgb 13.4 L (13.5-16.0) g/dL Hct 40.5 L (41.0-53.0) % Plt Count 262 (140-440) Thou/mm3 BMP 05/06/25 13:15 Sodium 138 Potassium 3.3 L Chloride 103 Carbon Dioxide 24.1 BUN 16 Creatinine 0.7 Glucose 163 H Calcium 9.0 Liver Function 05/06/25 Range/Units 13:15 Total Bilirubin 0.7 (0.3-1.2) mg/dL AST 21 (0-34) U/L ALT 27 (10-49) U/L Alkaline Phosphatase 67 (46-116) U/L Albumin 3.8 (3.5-5.0) gm/dL Quality Measures Quality Measures none Medications Home Medications and Allergies Allergies Allergy/AdvReac Type Severity Reaction Status Date / Time No Known Allergies Allergy Verified 05/06/25 12:30 Visit Medications Acetaminophen (Acetaminophen 325 Mg Tablet) 650 mg PO Q6H PRN PRN Reason: PAIN SCALE 1-3 (mild Stop: 10/16/25 22:06 Acetaminophen (Acetaminophen 325 Mg Tablet) 650 mg PO Q6H PRN PRN Reason: Fever >100.4 Stop: 06/05/25 22:06 Hydrocodone Bitart/Acetaminophen (Hydrocodone/Apap 10/325 Tab) 1 tab PO Q4HR PRN PRN Reason: PAIN SCALE 7-10 (Severe Stop: 05/11/25 22:06 Piperacillin/Tazobactam/Dextrose (Zosyn) 3.375 gm in 50 mls @ 100 mls/hr IV Q6HR JAROD; Protocol Stop: 05/14/25 00:00 Sodium Chloride (Ns) 1,000 mls @ 100 mls/hr IV .Q10H JAROD Stop: 05/07/25 08:14 Potassium Chloride (Kcl Ivpb) 10 meq in 100 mls @ 100 mls/hr IV Q1H JAROD Stop: 05/07/25 02:14 Ondansetron HCl (Ondansetron Inj 2 Mg/Ml Inj 2 Ml) 4 mg IVP Q6H PRN; Protocol PRN Reason: NAUSEA OR VOMITING Stop: 06/05/25 22:06 Oxycodone/Acetaminophen (Oxycodone/Apap 5/325 Tablet) 1 tab PO Q6H PRN PRN Reason: PAIN SCALE 4-6 (Moderate Stop: 05/11/25 22:06 Pantoprazole Sodium (Pantoprazole Inj 40 Mg Vial) 40 mg IVP QDAY [facility] Stop: 06/06/25 08:59 Pharmacy Consult (Vancomycin Pharmacy To Dose 1 Each Each) 1 each IV QDAY [facility] Stop: 06/06/25 08:59 Discontinued Medications Piperacillin/Tazobactam/Dextrose (Zosyn) 3.375 gm in 50 mls @ 100 mls/hr IV X1 ONE; Protocol Stop: 05/06/25 20:21 Last Infusion: 05/06/25 20:47 Dose: Infused Vancomycin/Sodium Chloride (Vancomycin/Ns 1 Gm Ivpb) 200 mls @ 120 mls/hr IV X1 ONE Stop: 05/06/25 21:32 Last Admin: 05/06/25 20:48 Dose: 120 mls/hr Morphine Sulfate (Morphine Sulf Inj 4 Mg/Ml Vial) 4 mg IVP X1 ONE Stop: 05/06/25 16:41 Last Admin: 05/06/25 18:00 Dose: 4 mg Ondansetron HCl (Ondansetron Inj 2 Mg/Ml Inj 2 Ml) 4 mg IVP X1 ONE Stop: 05/06/25 16:41 Last Admin: 05/06/25 18:00 Dose: 4 mg Potassium Chloride (Potassium Chloride 20 Meq Tabcr) 40 meq PO X1 ONE Stop: 05/06/25 22:12 Assessment & Plan Plan This is a 45-year-old male with no significant PMHx presenting with LLE swelling and pain. Admitted for SSTI. Cellulitis of LLE Effusion vs. hematoma of left knee Presenting with LLE pain and swelling for 4 days without evidence of skin puncture or trauma. Exam showed significant SSTI as above. LLE CT showed significant knee effusion and probable popliteal cyst on the posterior medial side of the knee, 6.8 x 2.3 cm fluid/hematoma collection between the medial head of the gastrocnemius and soleus muscle. Currently aseptic, afebrile, has mild leukocytosis. No suspicion for compartment syndrome based on exam: distal pulses intact, skin is warm, swollen but not firm to touch, no paresthesia, movmement in all directions intact both in all toes and ankle. No concern for septic arthritis or compartment syndrome at this time, will continue to monitor and evaluate. ? Started ZOSYN and VANCOMYCIN ? Started 1000 cc NS at 100cc/h ? Pain control ? Pending lactic acid ? Pending A1C ? Pending blood culture ? Pending general surgery recommendations ? Pending MRI LLE Dysuria Complains of burning sensation with urination since 1 week ago with dark urine. Denies penile discharge or foul smelling urine. No concern for STD per history. Normal renal function. ? Pending UA ? Antibiotic as above ? Pending Urine culture HTN BP slightly elevated, likely reactive to pain. No hx of HTN. ? Continue monitor ? Initiate antihypertensive as indicated Hypokalemia Sodium 3.3, likely transient 2/2 poor intake. ? Repleted ? Daily labs, repleat as needed. Health maintenance Diet: NPO GI prophylaxis: PROTONIX DVT prophylaxis: HEPARIN SUBC Antibiotics: ZOSYN, VANCOMYCIN CODE STATUS: FULL-CODE Disposition: Admitted for LLE cellulitis. Case was discussed with attending physician. Merry Watt DO PGY II This document was transcribed using voice recognition technology. Minor inaccuracies may be present. Attending Provider Attestation/Addendum After examination of the patient and review of the clinical data I feel that this patient needs admission to the hospital for further treatment/evaluation. Plan of care discussed with patient and is in agreement. I Emelyn Mcintyre MD, attest that I was physically present for tapia portions of evaluation, and examined patient, labs and imagings and plan of care were discussed with IM residents team, and I agree with the findings and plans documented above.
[2025-05-06] MEDS: SODIUM CHLORIDE 0.9% 1000 ML 1,000 ML 100 ML IV (22:46)
[2025-05-06] MEDS: POTASSIUM CHL 10 mEq IVPB 10 MEQ/100 ML BAG 100 MEQ IV ×2 (22:47→23:54)
[2025-05-06 23:07] LABS: Lactate (Lactic Acid) 0.9 mMol/L (0.4-2.0)
[2025-05-06 23:10] VITALS: BP 137/88; PULSE 79; RESP 19; TEMP 38.1; O2SAT 97
[2025-05-06 23:16] VITALS: TEMP 38.1
[2025-05-06] MEDS: ACETAMINOPHEN 325 MG TABLET 650 MG PO (23:16)
[2025-05-06 23:22] LABS: Glucose Estimated Average 117 mg/dL (80-131); Hemoglobin A1C 5.7 % Hgb (4.8-6.0)
[2025-05-06 23:46] VITALS: BMI 27.3
[2025-05-07] VITALS (19 sets, daily range): BP systolic 118–160; BP diastolic 72–103; PULSE 61–80; RESP 12–20; TEMP 35.9–37.5; O2SAT 95–100
[2025-05-07] MEDS: PIPER/TAZO 3.375 GM PREMIX 3.375 GM/50 ML BAG IV ×2 (00:27→05:10)
[2025-05-07] MEDS: POTASSIUM CHL 10 mEq IVPB 10 MEQ/100 ML BAG 100 MEQ IV ×2 (01:06→02:12)
[2025-05-07 02:42] LABS: Collection Type, Urine Clean Catch; Squamous Epithelial Cell,Urine 0 /hpf (0-5)
[2025-05-07 03:28] LABS: Bilirubin,Urine Negative (Negative); Blood,Urine Negative (Negative); Clarity,Urine Clear (Clear/Hazy); Color,Urine Yellow (Lt Yel-Yel); Glucose, Urine Negative (Negative); Ketones,Urine Negative (Negative); Leukocyte Esterase,Urine Negative (Negative); Nitrite,Urine Negative (Negative); PH,Urine 7.5 (5.0-7.0); Protein,Urine Trace (Neg - Trace); RBC,Urine 2 /hpf (0-3); Urobilinogen,Urine 8.0 mg/dL (0.0-1.0); WBC,Urine < 1 /hpf (0-5)
[2025-05-07 03:30] LABS: Specific Gravity,Urine 1.015 (1.001-1.035)
[2025-05-07 06:10] LABS: Basophils # (Auto) 0.0 Thou/mm3 (0.0-0.2); Basophils % (Auto) 0 % (0-2.5); Eosinophils # (Auto) 0.1 Thou/mm3 (0.0-0.5); Eosinophils % (Auto) 0 % (0-10); Hematocrit 39.5 % (41.0-53.0); Hemoglobin 12.6 g/dL (13.5-16.0); Immature Granulocytes Auto 0.15 Thou/mm3 (0.00-0.00); Lymphocytes # (Auto) 3.2 Thou/mm3 (1.0-4.8); Lymphocytes % (Auto) 26 % (10-50); Mean Corpuscular HGB Conc 31.9 g/dl (31.0-37.0); Mean Corpuscular Hemoglobin 29.8 pg (25.0-35.0); Mean Corpuscular Volume 93 fL (80-100); Monocytes # (Auto) 1.1 Thou/mm3 (0.0-0.8); Monocytes % (Auto) 9 % (0-12); Neutrophils # (Auto) 7.9 Thou/mm3 (1.8-7.7); Neutrophils % (Auto) 64 % (37-80); Nucleated Red Blood Cell # 0.00 Thou/mm3 (0.00-0.00); Nucleated Red Blood Cell % 0 /100 WBC (0); Platelet Count 265 Thou/mm3 (140-440); RDW Standard Deviation 45.3 fL (35.1-43.9); Red Blood Count 4.23 Miln/mm3 (4.50-5.90); White Blood Count 12.3 Thou/mm3 (3.8-10.6)
[2025-05-07 09:32] LABS: Anion Gap 8 (7-16); BUN/Creatinine Ratio 22 Ratio (12-20); Blood Urea Nitrogen 13 mg/dL (9-23); Calcium 7.9 mg/dL (8.3-10.6); Carbon Dioxide 25.3 mMol/L (20.0-31.0); Chloride 105 mMol/L (98-107); Creatinine (Component) 0.6 mg/dL (0.6-1.3); Estimated Creatinine Clearance 146.6 mL/min (>60); Glucose 98 mg/dL (74-106); Osmolality,Calculated 275 (275-295); Potassium 4.4 mMol/L (3.4-5.1); Sodium 138 mMol/L (136-145); eGFR > 60 See Note
[2025-05-07 09:33] LABS: Synovial Fluid WBC 52300 /cmm
[2025-05-07 09:52] LABS: Source,Synovial Fluid Knee; Synovial Fluid Appearance Cloudy; Synovial Fluid Color Straw; Synovial Fluid Mononuclear 3 %; Synovial Fluid Polynuclear 97 %; Synovial Fluid RBC 17000 /cmm
[2025-05-07] MEDS: VANCOMYCIN/WATER 1250 MG IVPB 250 ML 120 MG IV ×2 (10:17→21:41)
[2025-05-07 10:22] LABS: Synovial Fld, Specific Gravity 1.015
[2025-05-07 10:23] LABS: Misc Send Out* See Sep Rpt
--- NOTE | 2025-05-07 10:30 | PC.NURSE ---
received call from Wilber in surgery, report given. States pt will be picked up around 1130 for sx.
--- NOTE | 2025-05-07 11:42 | PD.ORTHCON ---
HPI Consult details Reason for consultation narrative: Left leg and knee pain History of present illness: Patient is a 45-year-old male with left leg and knee pain that has been ongoing for the last 7 days. This worsened recently. The majority of his pain is in the left knee and the left leg and calf. He reports he is unable to bear weight because of the pain. He has no risk factors for any infection or denies any trauma. He reports that this came out of the blue 7 days ago. We obtained a CT scan which demonstrates a large effusion and a fluid collection adjacent to the medial gastroc. We ordered an MRI. I also aspirated the patient's knee 2 hours ago and it came back with a cell count of over 51,097% PMNs. The MRI is unlikely to get done before we are washing out his knee Past Medical History Past Medical History Comments PMH COMMENT: No past medical history. 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 Breathing is nonlabored. Patient has a normal mood and affect. Patient has no pain with range of motion of either hips. Has full range of motion with no pain with logroll. Patient's knee is tender to palpation and there is a clear effusion of the left knee. Range of motion is painful. I was able to get up from 0 20 degrees of range of motion which was limited secondary to pain. On the left leg there is erythema and it is tender to palpation primarily on the proximal half of the medial calf. He has no difficulty at Handy flexing or extending his ankle and big toes both passively and actively. Compartments remain soft. Patient has a palpable DP and PT pulse bilaterally Sensation is intact to light touch in the superficial peroneal, deep peroneal, tibial nerve distributions Results - Ortho Labs 05/07/25 05:11 05/07/25 05:11 Labs: Short CBC 05/06/25 05/07/25 Range/Units 13:15 05:11 WBC 13.9 H 12.3 H (3.8-10.6) Thou/mm3 Hgb 13.4 L 12.6 L (13.5-16.0) g/dL Hct 40.5 L 39.5 L (41.0-53.0) % Plt Count 262 265 (140-440) Thou/mm3 BMP 05/06/25 05/07/25 13:15 05:11 Sodium 138 138 Potassium 3.3 L 4.4 D Chloride 103 105 Carbon Dioxide 24.1 25.3 BUN 16 13 Creatinine 0.7 0.6 Glucose 163 H 98 D Calcium 9.0 7.9 L Liver Function 05/06/25 Range/Units 13:15 Total Bilirubin 0.7 (0.3-1.2) mg/dL AST 21 (0-34) U/L ALT 27 (10-49) U/L Alkaline Phosphatase 67 (46-116) U/L Albumin 3.8 (3.5-5.0) gm/dL Urine 05/07/25 Range/Units 02:20 Urine Color Yellow (Lt Yel-Yel) Urine Clarity Clear (Clear/Hazy) Urine pH 7.5 H (5.0-7.0) Ur Specific [place] 1.015 (1.001-1.035) Urine Protein Trace (Neg - Trace) Urine Glucose (UA) Negative (Negative) Imaging CT: Additional comments: CT scan of the left knee demonstrates significant effusion as well as a large abscess between the soleus and gastroc on the medial aspect. Assessment & Plan Problem List (1) Septic arthritis of knee: Status: Acute (2) Abscess of left knee: Status: Acute Assessment and plan: Patient is a 45-year-old male with a septic left knee as well as an abscess of the left leg at the level of the medial gastroc. We originally planned for an MRI of the leg and knee but on examination this morning it was clear that he has significant left knee pain and that this was not just cellulitis of the leg which was originally the diagnosis. He clearly has a septic knee and some sort of fluid collection in the leg. The diagnosis of an abscess on the medial leg has not been confirmed and an MRI is currently pending. However it is clear that he has a septic knee based on the aspiration, we thus are taking him to the operating room. We will explore that fluid collection given that we are in the operating room and that he is going to get surgery. I do think that the risks of believe the benefits. I discussed with him that we have not confirmed the diagnosis of an abscess in the leg but that he definitely has a septic knee. We recommend irrigation and debridement of both the leg and the knee and we will obtain cultures and explore the left leg. We discussed the risk of surgery include infection, damage to nerves and vessels, and that we may need to perform fasciotomies at least of the posterior medial compartment as we are going through a posterior medial approach to get to the access to the fluid collection on the medial leg. We also discussed that the risk of surgery include compartment syndrome, persistent infection, and damage to nerves and vessels. I also discussed with him with that we may not close the wound depending on what the exploration shows. We will obtain cultures. - N.p.o. - Plan for irrigation and debridement of the knee and leg
--- NOTE | 2025-05-07 12:43 | PC.SS ---
SS follow up note; Surgery and Ortho consult pending at the time.
--- NOTE | 2025-05-07 13:33 | SUR.PHASEI ---
Addendum entered by Celena Zabala RN 05/07/25 14:12: correction oxygen delivery via nasal cannula inserted into LMA Original Note: 1333 Patient arrived to recovery resting comfortably in [facility], on oxygen 12L via oxy mask with an oral airway in place, breathing unlabored, vital signs stable, dressing intact to left knee; sutures, wound vac- pressure setting 75mmHg, continuous, dressing clean, dry and intact; no bleeding noted, bilateral dorsalis pedis pulses present when palpated, report received from Haider MONTIEL and Jacqui GOYAL
--- NOTE | 2025-05-07 13:34 | PD.SUROPNT ---
Date of Procedure 05/07/25 Pre Op Diagnosis Left septic knee and leg abscess Post Op Diagnosis Left septic knee and leg abscess Procedure Left knee irrigation and debridement as well as left leg wound exploration and irrigation and debridement as well as fasciotomies and wound VAC placement Findings Extensive purulence in the leg and knee Procedure Description Indications: Patient is a 45-year-old male with a septic left knee and a leg abscess. He does count was over 50,000. He also had a high ESR and CRP values. We thus discussed open versus arthroscopy irrigation debridement as well as irrigation debridement of his leg abscess. The patient understands the risk procedure including infection, damage to nerves and vessels, and persistent infection. Procedure in detail Patient was brought to the operating room. He was actually found to have multiple abscesses on his abdomen as well as well as upper extremity. We have called the primary team to let them know about this. The primary concern is is septic and knee arthritis as this is considered an orthopedic emergency. We prepped and draped the patient in the usual sterile fashion. We first started with the leg abscess. We used a posterior medial incision 2 cm medial to the medial border of the tibia. The incision was approximately 10 cm. We then opened the fascia and opened both superficial and deep compartments ensuring to stay on bone when opening the deep compartment. When incising the gastroc, significant purulence shot out in a projectile fashion. Multiple cultures were obtained we further opened the gastroc muscle and irrigated the wound with over 6 L. We also extended the fasciotomy of the deep and superficial compartment. The compartments were found to be soft and preoperatively there is no suspicion for compartment syndrome at all. After 6 L of saline and some surgery for, we closed the wound just skin loosely with 2-0 Vicryl l in a simple interrupted fashion We then went to the knee. A midline incision was used and a medial parapatellar arthrotomy was performed. Extensive purulence was also found and was highly projectile. 2 cultures were also obtained. We then performed a synovectomy and irrigated the knee with a pulse lavage followed by surgery for with another 6 L of normal saline. The patient was again closed with PDS for the arthrotomy as well as 2-0 nylon for superficial tissues. The patient was placed in a knee immobilizer and was placed in a incisional VAC. Postoperative plan: I would recommend that the wound VAC be changed in approximately 5 to 7 days. Cultures will need to be followed. The patient has extensive abscesses throughout his whole body and I recommend that this be worked up. I would also look for another source such as the heart and someone should investigate blood cultures as it appears his infection is disseminated. Anesthesia GETA Implants none Pathology / specimen None Pathology comment: none Estimated Blood Loss 75 Condition Stable Disposition floor Surgeon Ez Schaffer MD Surgical Staff Operation Date: 05/07/25 12:15 <No data on this case meets the specified criteria>
--- NOTE | 2025-05-07 13:35 | XR_ITS ---
Examination: CT chest with intravenous contrast CT abdomen with intravenous contrast CT pelvis with intravenous contrast 2-D coronal and sagittal reconstructions Time of exam: May 07, 2025 1719 hrs. Indications: Clinical diagnosis to 7 days infection, shortness of breath chest pain generalized abdominal pain and weakness beginning 2 days ago CTDI: vol (mGy) : 8.48 DLP: (mGycm): 611 Technique: Multiple axial images of the chest, abdomen and pelvis with intravenous contrast, 3.0 mm slice thickness. Images obtained post intravenous injection Isovue 370 60 cc. 2-D sagittal and coronal reconstructions. Low dose protocols were performed. One or more of the following dose reduction techniques were used; automated exposure control, adjustment of the mA and/or KV according to patient size, use of iterative reconstruction technique. Findings: No thoracic aortic aneurysm dilatation No pulmonary artery emboli on this non-CTA study 5 mm pulmonary nodule right upper lobe, 6 mm pulmonary nodule right lower lobe Moderate vascular congestion Atelectasis left lower lobe, no pneumonia Fatty infiltration throughout the liver, liver is irregular in contour Spleen is not enlarged No definite gallstones No pancreatic or adrenal mass No renal or ureteral calculi, no hydronephrosis Normal appendix No abdominal or pelvic abscess. No bowel obstruction Negative for diverticulitis Localized thickening of the colonic wall in the sigmoid colon, axial image 266 No bladder mass No prostatomegaly Fat-containing right inguinal hernia Mild osteopenia Impression: Noncalcified pulmonary nodules as above, with this study as baseline recommend 6 month follow-up CT chest without contrast No pneumonia or pulmonary edema Suspect primary hepatocellular disease Normal appendix No abdominal or pelvic abscess. Localized thickening of the wall of the sigmoid colon, axial image 266, recommend elective colonoscopy to exclude early malignant neoplasm of the sigmoid colon
--- NOTE | 2025-05-07 13:38 | ECHO_ITS ---
Transthoracic Echo Report Ht (in): 65 Wt (lb): 163 Exam Location: Echo Lab Status: Inpatient Ebd Special Education Teacher: Terese Velasquez Indications: Procedure Performed: BP: 160 / 101 HR: 68 MEASUREMENTS (Male / Female) Normal Values 2D ECHO LV Diastolic Diameter PLAX 4.7 cm 4.2 - 5.9 / 3.9 - 5.3 cm LV Systolic Diameter PLAX 3.0 cm IVS Diastolic Thickness 0.8 cm 0.6 - 1.0 / 0.6 - 0.9 cm LVPW Diastolic Thickness 0.9 cm 0.6 - 1.0 / 0.6 - 0.9 cm LV Relative Wall Thickness 0.4 LVOT Diameter 2.0 cm LV Ejection Fraction MOD BP 60.1 % >= 55 % LV Cardiac Index MOD BP 3230.8 cm?/min?m? LV Ejection Fraction MOD 4C 63.1 % LV Cardiac Index MOD 4C 3091.8 cm?/min?m? LV Ejection Fraction 4C AL 64.5 % LV Cardiac Index 4C AL 3291.6 cm?/min?m? LV Ejection Fraction MOD 2C 62.4 % LV Cardiac Index MOD 2C 3582.1 cm?/min?m? LV Ejection Fraction 2C AL 64.3 % LV Cardiac Index 2C AL 3753.8 cm?/min?m? LA Volume Index 29.7 cm?/m? 16 - 28 cm?/m? M-MODE Aortic Root Diameter MM 2.8 cm LA Systolic Diameter MM 3.0 cm LA Ao Ratio MM 1.1 AV Cusp Separation MM 2.1 cm DOPPLER AV Peak Velocity 158.0 cm/s AV Peak Gradient 10.0 mmHg AV Mean Gradient 5.0 mmHg AV Velocity Time Integral 29.2 cm LVOT Peak Velocity 107.0 cm/s LVOT Peak Gradient 4.6 mmHg LVOT Velocity Time Integral 20.4 cm LVOT Cardiac Index 2344.9 cm?/min?m? AV Area Cont Eq vti 2.2 cm? AV Area Cont Eq pk 2.1 cm? MV Area PHT 3.4 cm? MR Peak Velocity 233.0 cm/s MR Peak Gradient 21.7 mmHg Mitral E Point Velocity 60.6 cm/s Mitral A Point Velocity 53.8 cm/s Mitral E to A Ratio 1.1 LV E' Lateral Velocity 10.9 cm/s Mitral E to LV E' Lateral Ratio 5.6 LV E' Septal Velocity 6.9 cm/s Mitral E to LV E' Septal Ratio 8.8 PV Peak Velocity 122.0 cm/s PV Peak Gradient 6.0 mmHg FINDINGS Left Ventricle Normal left ventricular size, wall thickness, systolic function with no obvious regional wall motion abnormalities. Normal left ventricular diastolic filling pattern for age. The ejection fraction is visually estimated at 55-60 %. Right Ventricle The right ventricular size is mildy increased with normal systolic function. Left Atrium The left atrium is normal by two-dimensional, color flow and Doppler imaging with no structural abnormalities, no thrombus formation present. Right Atrium The right atrium is normal by two-dimensional imaging, color flow and Doppler imaging with no structural abnormalities, no thrombus formation present. Atrial Septum The interatrial septum appears normal with no evidence of a shunt. Aorta The aorta is normal by two-dimensional, color flow and Doppler interrogation. Mitral Valve The mitral valve is normal by two-dimensional, color flow and Doppler interrogation. Trace mitral regurgitation. Aortic Valve The aortic valve is trileaflet and normal by two-dimensional, color flow and Doppler interrogation. There is no significant aortic valve regurgitation. Tricuspid Valve The tricuspid valve is normal by two-dimensional, color flow and Doppler interrogation. There is trace tricuspid valve regurgitation. Pulmonic Valve The pulmonic valve is not well visualized. There is no significant pulmonic valve regurgitation. Vessels The pulmonary artery appears normal. The inferior vena cava pulmonary and hepatic veins appear normal. Pericardium The pericardium is normal by two-dimensional imaging. There is no significant pericardial effusion. CONCLUSIONS Indication: Bacteremia-possible endocarditis No evidence of any valvular vegetations. Consider RAHUL if high clinical index of suspicion. Normal LV size and function. Estimated EF at 55-60 %. Normal diastolic function The RV size is mildy increased with normal systolic function. Normal RVSP Trace mitral and trace tricuspid regurgitation noted. No pericardial effusion. Lul Malik (Electronically Signed) Final Date: 08 May 2025 17:37
--- NOTE | 2025-05-07 14:35 | PC.SS ---
Patient Luisito Guallpa is a 45 Year old male admitted for Left lower leg Swelling X6 days. SS attempted to meet with patients at bedside however patient was getting a procedure done. SS contacted patient's , Katelynn Barreto who reports is patient's surrogate decision maker, [phone]. Patient's reports he does not utilize any source of DME to assist with ambulation. Choice of pharmacy is [facility]. PCP is Rafita Streeter at [facility]. At time of discharge patient will discharge back home. Discharge plan: Home Next of kin: , Katelynn Barreto
--- NOTE | 2025-05-07 14:37 | SUR.PHASEI ---
[address] [place] REAL ESTATE PROFESSOR at bedside, patient complaining of pain /, verbal order read-back received from Fentayl 50mg IVP x1, Tylenol 1gm via IV x1, Toradol 30mg IVP x1 for pain, will enter orders in EMR and administer per order
--- NOTE | 2025-05-07 14:40 | ESPR_ITS ---
<Statement entered by Maren Boyle MD - 05/12/25 09:12> I reviewed above note and agree with findings and plans. I have also personally examined the patient with medicine team and went over assessment and plan with medical team including technology intern and resident physician. <Statement entered by Michelle Soria MD - 05/07/25 16:04> I discussed with and supervised the technology intern physician who took care of this patient. I personally saw and examined the patient and discussed the assessment and plan with the entire medicine team, including my attending Dr. Boyle, I agree with most of the assessment and plan as documented below Michelle Soria M.D. PGY-3 Documentation for date of: 05/07/25 Subjective Subjective Interval history: Patient Examined at bedside. Admitted overnight due to 6 days of progressive knee and leg swelling on the left. Denies inciting injury or cuts to the area. Also denies fever, abdominal pain, numbness, pain with passive movement. WBC elevated at 12.3. ESR 94. CT demonstrated a 6.8x2.3 fluid collection between the medial head of the gastrocnemius and the soleus. Dopplar US negative for DVT. Synovial fluid analysis of the knee joint was notable for 52,000 WBCs. Patient taken for washout of the knee and fasciotomy. Was found to have extensive purulent material in the gastroc fluid collection as well as in the knee. Cultures taken from both sites. Patient was on Vanc and Zosyn, was switched to Vanc and Cefipime. Pending cultures. CT abdomen, and pelvis ordered to rule out intraabdominal infection. ECHO to assess for endocarditis. Exam Vital Signs Temp Pulse Resp BP Pulse Ox O2 Del Method O2 Flow Rate 97.1 F 71 12 143/97 H 100 Room Air 2 05/07/25 14:03 05/07/25 14:18 05/07/25 14:18 05/07/25 14:18 05/07/25 14:18 05/07/25 08:00 05/07/25 14:18 Narrative Exam General: Azeri speaking, middle aged patient, no acute distress. HEENT: Mucosa moist. Pupils are equal. Cardiovascular: Regular rate and rhythm. DP pulses 2+ bilaterally. Respiratory: No tachypnea or auditory stridor. . Abdomen: Soft, nontender, not distended, Skin: Dry, shiny appearing along the left lower extremity. No erythema overlying the knee. No breaks in the skin on the LLE. Musculoskeletal: Knee is edematous along with the lower leg. Pitting edema. Active movement without pain. Knee flexion limited by pain and mechanical resistance from the swelling. Neuro: Alert and oriented x3. Intact sensation of the left lower extremity. Psych: Normal affect and mood Objective Labs 05/07/25 05:11 05/07/25 05:11 Labs: Laboratory Results - last 24 hr 05/06/25 05/06/25 05/07/25 13:15 22:57 02:20 WBC RBC Hgb Hct MCV MCH MCHC RDW Std Deviation Plt Count Neut % (Auto) Lymph % (Auto) [place] % (Auto) Eos % (Auto) Baso % (Auto) Neut # (Auto) Lymph # (Auto) [place] # (Auto) Eos # (Auto) Baso # (Auto) Immature Gran # (Auto) Absolute Nucleated RBC Immature Gran % Nucleated RBC % ESR 94 H Sodium Potassium Chloride Carbon Dioxide Anion Gap BUN Creatinine Estim Creat Clear Calc eGFR BUN/Creatinine Ratio Glucose Estimated Ave Glu mg/dL 117 Hemoglobin A1c 5.7 Calculated Osmolality Lactic Acid 0.9 Calcium Ur Collection Type Clean Catch Urine Color Yellow Urine Clarity Clear Urine pH 7.5 H Ur Specific [place] 1.015 Urine Protein Trace Urine Glucose (UA) Negative Urine Ketones Negative Urine Blood Negative Urine Nitrite Negative Urine Bilirubin Negative Urine Urobilinogen (Auto) 8.0 Ur Leukocyte Esterase Negative Urine RBC 2 Urine WBC < 1 Ur Squamous Epith Cells 0 Urine Bacteria None Synovial Source Synovial Color Synovial Appearance Synovial WBC Synovial RBC Synov Polynuclear WBCs Synov Mononuclear WBCs Synovial Specific Grav Synovial Crystals Synovial Fluid Comment 05/07/25 05/07/25 05/07/25 05:11 08:00 08:00 WBC 12.3 H RBC 4.23 L Hgb 12.6 L Hct 39.5 L MCV 93 MCH 29.8 MCHC 31.9 RDW Std Deviation 45.3 H Plt Count 265 Neut % (Auto) 64 Lymph % (Auto) 26 [place] % (Auto) 9 Eos % (Auto) 0 Baso % (Auto) 0 Neut # (Auto) 7.9 H Lymph # (Auto) 3.2 [place] # (Auto) 1.1 H Eos # (Auto) 0.1 Baso # (Auto) 0.0 Immature Gran # (Auto) 0.15 H Absolute Nucleated RBC 0.00 Immature Gran % 1 H Nucleated RBC % 0 ESR Sodium 138 Potassium 4.4 D Chloride 105 Carbon Dioxide 25.3 Anion Gap 8 BUN 13 Creatinine 0.6 Estim Creat Clear Calc 146.6 eGFR > 60 BUN/Creatinine Ratio [address] H Glucose [address] Glu mg/dL Hemoglobin A1c Calculated Osmolality 275 Lactic Acid Calcium 7.9 L Ur Collection Type Urine Color Urine Clarity Urine pH Ur Specific [place] Urine Protein Urine Glucose (UA) Urine Ketones Urine Blood Urine Nitrite Urine Bilirubin Urine Urobilinogen (Auto) Ur Leukocyte Esterase Urine RBC Urine WBC Ur Squamous Epith Cells Urine Bacteria Synovial Source Knee Cancelled Synovial Color Straw Synovial Appearance Synovial WBC Synovial RBC Synov Polynuclear WBCs Synov Mononuclear WBCs Synovial Specific Grav Synovial Crystals Synovial Fluid Comment 05/07/25 05/07/25 05/07/25 08:00 08:00 08:00 WBC RBC Hgb Hct MCV MCH MCHC RDW Std Deviation Plt Count Neut % (Auto) Lymph % (Auto) [place] % (Auto) Eos % (Auto) Baso % (Auto) Neut # (Auto) Lymph # (Auto) [place] # (Auto) Eos # (Auto) Baso # (Auto) Immature Gran # (Auto) Absolute Nucleated RBC Immature Gran % Nucleated RBC % ESR Sodium Potassium Chloride Carbon Dioxide Anion Gap BUN Creatinine Estim Creat Clear Calc eGFR BUN/Creatinine Ratio Glucose Estimated Ave Glu mg/dL Hemoglobin A1c Calculated Osmolality Lactic Acid Calcium Ur Collection Type Urine Color Urine Clarity Urine pH Ur Specific [place] Urine Protein Urine Glucose (UA) Urine Ketones Urine Blood Urine Nitrite Urine Bilirubin Urine Urobilinogen (Auto) Ur Leukocyte Esterase Urine RBC Urine WBC Ur Squamous Epith Cells Urine Bacteria Synovial Source Synovial Color Cancelled Synovial Appearance Cloudy Cancelled Synovial WBC 80444 Cancelled Synovial RBC 97485 Synov Polynuclear WBCs Synov Mononuclear WBCs Synovial Specific Grav Synovial Crystals Synovial Fluid Comment 05/07/25 05/07/25 05/07/25 08:00 08:00 08:00 WBC RBC Hgb Hct MCV MCH MCHC RDW Std Deviation Plt Count Neut % (Auto) Lymph % (Auto) [place] % (Auto) Eos % (Auto) Baso % (Auto) Neut # (Auto) Lymph # (Auto) [place] # (Auto) Eos # (Auto) Baso # (Auto) Immature Gran # (Auto) Absolute Nucleated RBC Immature Gran % Nucleated RBC % ESR Sodium Potassium Chloride Carbon Dioxide Anion Gap BUN Creatinine Estim Creat Clear Calc eGFR BUN/Creatinine Ratio Glucose Estimated Ave Glu mg/dL Hemoglobin A1c Calculated Osmolality Lactic Acid Calcium Ur Collection Type Urine Color Urine Clarity Urine pH Ur Specific [place] Urine Protein Urine Glucose (UA) Urine Ketones Urine Blood Urine Nitrite Urine Bilirubin Urine Urobilinogen (Auto) Ur Leukocyte Esterase Urine RBC Urine WBC Ur Squamous Epith Cells Urine Bacteria Synovial Source Synovial Color Synovial Appearance Synovial WBC Synovial RBC Cancelled Synov Polynuclear WBCs 97 Cancelled Synov Mononuclear WBCs 3 Cancelled Synovial Specific Grav 1.015 Synovial Crystals Cancelled Synovial Fluid Comment Cancelled Quality Measures Quality Measures none Assessment & Plan Assessment Current Active Medications: Generic Name Dose Route Start Last Admin Trade Name Freq PRN Reason Stop Dose Admin Acetaminophen 650 mg 05/06/25 22:07 Acetaminophen 325 Mg Tablet PO 06/05/25 22:06 Q6H PRN PAIN SCALE 1-3 (mild Acetaminophen 650 mg 05/06/25 22:07 05/06/25 23:16 Acetaminophen 325 Mg Tablet PO 06/05/25 22:06 650 mg Q6H PRN Administration Fever >100.4 Hydrocodone Bitart/Acetaminophen 1 tab 05/06/25 22:07 05/07/25 08:11 Hydrocodone/Apap 10/325 Tab PO 05/11/25 22:06 1 tab Q4HR PRN Administration PAIN SCALE 7-10 (Severe Fentanyl Citrate 50 mcg 05/07/25 14:38 Fentanyl Cit Inj 50 Mcg/Ml Amp 2ml IVP 05/07/25 14:39 X1 ONE Heparin Sodium (Porcine) 5,000 unit 05/07/25 06:00 05/07/25 05:09 Heparin Sod Inj 5000 Unit/Ml Vial SC 05/21/25 05:59 Not Given Q8HR [facility] Vancomycin HCl 250 mls @ 120 mls/hr 05/07/25 10:00 05/07/25 10:17 Vancomycin/Water 1250 Mg Ivpb IV 05/14/25 09:59 120 mls/hr BID@1000,2200 [facility] Administration Protocol Cefepime HCl 2 gm/ Sodium 50 mls @ 100 mls/hr 05/07/25 11:30 Chloride IV 05/14/25 11:29 Q8HR JAROD Acetaminophen 1,000 mg in 100 mls @ 250 mls/hr 05/07/25 14:38 Ofirmev Inj IV 05/07/25 15:01 X1 ONE Ketorolac Tromethamine 30 mg 05/07/25 14:38 Ketorolac Inj 30 Mg/Ml Vial IVP 05/07/25 14:39 X1 ONE Ondansetron HCl 4 mg 05/06/25 22:07 Ondansetron Inj 2 Mg/Ml Inj 2 Ml IVP 06/05/25 22:06 Q6H PRN NAUSEA OR VOMITING Protocol Oxycodone/Acetaminophen 1 tab 05/06/25 22:07 05/07/25 00:16 Oxycodone/Apap 5/325 Tablet PO 05/11/25 22:06 1 tab Q6H PRN Administration PAIN SCALE 4-6 (Moderate Pantoprazole Sodium 40 mg 05/07/25 09:00 05/07/25 08:15 Pantoprazole Inj 40 Mg Vial IVP 06/06/25 08:59 40 mg QDAY JAROD Administration Pharmacy Consult 1 each 05/07/25 09:00 Vancomycin Pharmacy To Dose 1 Each Each IV 06/06/25 08:59 QDAY PRN PROTOCOL Plan This is a 45-year-old male with no significant PMHx presenting with LLE swelling and pain. Admitted for SSTI. #Left Knee Swelling #Septic Arthritis #Soft tissue Infection Patient presenting with 6 days of progressive knee then leg swelling. Afebrile with stable vitals, but significant knee tenderness and pitting edema of the left leg. No pain out of proportion to exam. WBC 12.3. ESR 94. CT demonstrated a 6.8x2.3 fluid collection between the medial head of the gastrocnemius and the soleus. Dopplar US negative for DVT. Synovial fluid analysis of the knee joint was notable for 52,000 WBCs. Patient taken for washout of the knee and fasciotomy. Was found to have extensive purulent material in the gastroc fluid collection as well as in the knee. Cultures taken from both sites. With lack of trauma, this is likely from hematogenous spread from unclear source. Differential includes endocarditis versus disseminated gonococcal infection. -Blood and surgery cultures pending -Vanc and cefipime -CT Abd and pelvis -ECHO Dysuria Complains of burning sensation with urination since 1 week ago with dark urine. Denies penile discharge or foul smelling urine. Possible UTI. Normal renal function. ? Pending UA ? Antibiotic as above ? Pending Urine culture #Hypokalemia (resolved) Likely from poor intake. Resolved after repletion. Health Maintenance: DVT prophylaxis: Heparin Diet: Regular diet Fry: No Lines: PIV CODE STATUS: Full code Disposition: Pending cultures and infectious workup. Patient's plan and care discussed with my attending, Dr. [place] MD. Jake Thomas, DO PGY-1 ([facility] Resident)
[2025-05-07] MEDS: fentaNYL CIT INJ 50 mCg/ML AMP 2ML IVP (14:45)
[2025-05-07] MEDS: ACETAMINOPHEN IVPB 1,000 MG/100 ML VIAL 250 MG IV (14:50)
[2025-05-07] MEDS: KETOROLAC INJ 30 MG/ML VIAL IVP (14:51)
--- NOTE | 2025-05-07 15:14 | SUR.PHASEI ---
1511 Report given to Jaz GOYAL, patient meets discharge criteria from recovery, awake and alert, breathing unlabored, vital signs stable, per patient his pain is tolerable, dressing intact; no bleeding noted, drinking water; nausea is tolerable 1514 Patient transported via gurney to room 369 without incident, ENGINEERING MATHEMATICIAN promptly in patient room and assisted with transferring patient from gurney to bed, call light in reach when this personal lines underwriter left patients room, ENGINEERING MATHEMATICIAN remained in patients room, family awating in hallway for patient
[2025-05-07] MEDS: HEPARIN SOD INJ 5000 UNIT/ML VIAL SC (21:05)
[2025-05-07] MEDS: CEFEPIME INJ 2 GM in SODIUM CHLORIDE 0.9% (Popper) 50 ML IV (21:05)
[2025-05-08] VITALS (8 sets, daily range): BP systolic 105–119; BP diastolic 72–81; PULSE 72–79; RESP 15–18; TEMP 36.1–36.8; O2SAT 95–98; BMI 27.3
[2025-05-08] MEDS: HEPARIN SOD INJ 5000 UNIT/ML VIAL SC ×3 (05:19→21:16)
[2025-05-08] MEDS: CEFEPIME INJ 2 GM in SODIUM CHLORIDE 0.9% (Popper) 50 ML IV ×3 (05:19→21:13)
[2025-05-08 06:05] LABS: Basophils # (Auto) 0.0 Thou/mm3 (0.0-0.2); Basophils % (Auto) 0 % (0-2.5); Eosinophils # (Auto) 0.1 Thou/mm3 (0.0-0.5); Eosinophils % (Auto) 1 % (0-10); Hematocrit 39.7 % (41.0-53.0); Hemoglobin 12.4 g/dL (13.5-16.0); Immature Granulocytes Auto 0.23 Thou/mm3 (0.00-0.00); Lymphocytes # (Auto) 2.6 Thou/mm3 (1.0-4.8); Lymphocytes % (Auto) 27 % (10-50); Mean Corpuscular HGB Conc 31.2 g/dl (31.0-37.0); Mean Corpuscular Hemoglobin 29.0 pg (25.0-35.0); Mean Corpuscular Volume 93 fL (80-100); Monocytes # (Auto) 0.9 Thou/mm3 (0.0-0.8); Monocytes % (Auto) 9 % (0-12); Neutrophils # (Auto) 5.8 Thou/mm3 (1.8-7.7); Neutrophils % (Auto) 61 % (37-80); Nucleated Red Blood Cell # 0.00 Thou/mm3 (0.00-0.00); Nucleated Red Blood Cell % 0 /100 WBC (0); Platelet Count 275 Thou/mm3 (140-440); RDW Standard Deviation 45.1 fL (35.1-43.9); Red Blood Count 4.28 Miln/mm3 (4.50-5.90); White Blood Count 9.7 Thou/mm3 (3.8-10.6)
[2025-05-08 06:29] LABS: Anion Gap 9 (7-16); BUN/Creatinine Ratio 15 Ratio (12-20); Blood Urea Nitrogen 9 mg/dL (9-23); Calcium 8.4 mg/dL (8.3-10.6); Carbon Dioxide 27.5 mMol/L (20.0-31.0); Chloride 101 mMol/L (98-107); Creatinine (Component) 0.6 mg/dL (0.6-1.3); Estimated Creatinine Clearance 146.6 mL/min (>60); Glucose 80 mg/dL (74-106); Magnesium 1.6 mg/dL (1.6-2.6); Osmolality,Calculated 271 (275-295); Phosphorous 3.5 mg/dL (2.4-5.1); Potassium 3.9 mMol/L (3.4-5.1); Sodium 137 mMol/L (136-145); eGFR > 60 See Note
--- NOTE | 2025-05-08 07:40 | PC.NURSE ---
Received call from Dr Schaffer checking on patient. Instructed to leave wound vac on for 5 days. Vac to be changed Saturday 05/12. Wound care nurse consult in place.
[2025-05-08 09:45] LABS: Vancomycin,Trough 8.2 mcg/mL (5.0-10.0)
--- NOTE | 2025-05-08 09:52 | ESPR_ITS ---
<Statement entered by Michelle Soria MD - 05/08/25 16:05> I discussed with and supervised the chemist intern physician who took care of this patient. I personally saw and examined the patient and discussed the assessment and plan with the entire medicine team, including my attending Dr. Boyle, I agree with most of the assessment and plan as documented below Michelle Soria M.D. PGY-3 Disclaimer: Despite multiple revisions, due to the dictation software being used, the document bellow may not be free of grammatical errors including phonetic/typographic errors. However, this does not deter from our commitment to providing health care in the patient's best interest in mind. Documentation for date of: 05/08/25 Subjective Subjective Interval history: Patient Examined at bedside, NAOE. Patient states hes doing ok, about the same regarding pain. He's had minimal output out of the left leg wound vac. Examination was notable for multiple small scabs on the abdomen that were not fluctant. He also had some swelling of the right ring finger that he attributes to getting stuck with a thorn while picking oranges. He states that it once expressed a splinter but it is not currently painful. He has been afebrile with stable vitals, no tachycardia. WBC improved from 12 to 9. Cultures from the leg grew G+ cocci, he is currently on Vanc and cefepime. Pending multiple cultures including cocci serology at this time. CT abdomen and pelvis yesterday was negative for obvious intraabdominal infection but did show localized thickening of the sigmoid colon. Continue IV antibiotics Await cultures and sensitivities Exam Vital Signs Temp Pulse Resp BP Pulse Ox O2 Del Method O2 Flow Rate 97.6 F 75 18 105/74 97 Room Air 2 05/08/25 08:00 05/08/25 08:00 05/08/25 08:00 05/08/25 08:00 05/08/25 08:00 05/08/25 08:00 05/07/25 14:18 Narrative Exam General: Greek speaking, middle aged patient, no acute distress. HEENT: Mucosa moist. Pupils are equal. Cardiovascular: Regular rate and rhythm without murmur or rub. DP pulses 2+ bilaterally. Respiratory: Lungs clear to auscultation bilaterally. Abdomen: Soft, nontender, not distended, multiple small scabs scattered on the abdomen without underlying fluctuance. Skin: Dry, shiny appearing along the left lower extremity. Staining from the surgical betadine. No breaks in the skin on the LLE. Musculoskeletal: Knee is edematous along with the lower leg. Pitting edema. Wound vac in place extending from over the anterior portion of the knee down to mid leg. Dressing is clean/dry/intact with minimal drainage in the tubing. Neuro: Alert and oriented x3. Intact sensation of the left lower extremity. Psych: Normal affect and mood Objective Labs 05/14/25 05:06 05/14/25 05:06 Labs: Laboratory Results - last 24 hr 05/07/25 05/08/25 05/08/25 08:00 05:00 09:10 WBC 9.7 RBC 4.28 L Hgb 12.4 L Hct 39.7 L MCV 93 MCH 29.0 MCHC 31.2 RDW Std Deviation 45.1 H Plt Count 275 Neut % (Auto) 61 Lymph % (Auto) 27 [place] % (Auto) 9 Eos % (Auto) 1 Baso % (Auto) 0 Neut # (Auto) 5.8 Lymph # (Auto) 2.6 [place] # (Auto) 0.9 H Eos # (Auto) 0.1 Baso # (Auto) 0.0 Immature Gran # (Auto) 0.23 H Absolute Nucleated RBC 0.00 Immature Gran % 2 H Nucleated RBC % 0 Sodium 137 Potassium 3.9 D Chloride 101 Carbon Dioxide 27.5 Anion Gap 9 BUN 9 Creatinine 0.6 Estim Creat Clear Calc 146.6 eGFR > 60 BUN/Creatinine Ratio 15 Glucose 80 Calculated Osmolality 271 L Calcium 8.4 Phosphorus 3.5 Magnesium 1.6 Synovial Source Knee Synovial Color Straw Synovial Appearance Cloudy Synovial WBC 39049 Syn[place] [address]17 Synov Polynuclear WBCs 97 Synov Mononuclear WBCs 3 Synovial Specific Grav 1.015 Synovial Crystals Cancelled Vancomycin Trough 8.2 Quality Measures Quality Measures none Assessment & Plan Assessment Current Active Medications: Generic Name Dose Route Start Last Admin Trade Name Freq PRN Reason Stop Dose Admin Acetaminophen 650 mg 05/06/25 22:07 Acetaminophen 325 Mg Tablet PO 06/05/25 22:06 Q6H PRN PAIN SCALE 1-3 (mild Acetaminophen 650 mg 05/06/25 22:07 05/06/25 23:16 Acetaminophen 325 Mg Tablet PO 06/05/25 22:06 650 mg Q6H PRN Administration Fever >100.4 Hydrocodone Bitart/Acetaminophen 1 tab 05/06/25 22:07 05/08/25 08:33 Hydrocodone/Apap 10/325 Tab PO 05/11/25 22:06 1 tab Q4HR PRN Administration PAIN SCALE 7-10 (Severe Heparin Sodium (Porcine) 5,000 unit 05/07/25 06:00 05/08/25 05:19 Heparin Sod Inj 5000 Unit/Ml Vial SC 05/21/25 05:59 5,000 unit Q8HR JAROD Administration Vancomycin HCl 250 mls @ 120 mls/hr 05/07/25 10:00 05/07/25 21:41 Vancomycin/Water 1250 Mg Ivpb IV 05/14/25 09:59 120 mls/hr BID@1000,2200 JAROD Administration Protocol Cefepime HCl 2 gm/ Sodium 50 mls @ 100 mls/hr 05/07/25 11:30 05/08/25 05:19 Chloride IV 05/14/25 11:29 100 mls/hr Q8HR JAROD Administration Ondansetron HCl 4 mg 05/06/25 22:07 Ondansetron Inj 2 Mg/Ml Inj 2 Ml IVP 06/05/25 22:06 Q6H PRN NAUSEA OR VOMITING Protocol Oxycodone/Acetaminophen 1 tab 05/06/25 22:07 05/08/25 05:19 Oxycodone/Apap 5/325 Tablet PO 05/11/25 22:06 1 tab Q6H PRN Administration PAIN SCALE 4-6 (Moderate Pantoprazole Sodium 40 mg 05/07/25 09:00 05/08/25 08:17 Pantoprazole Inj 40 Mg Vial IVP 06/06/25 08:59 40 mg QDAY JAROD Administration Pharmacy Consult 1 each 05/07/25 09:00 Vancomycin Pharmacy To Dose 1 Each Each IV 06/06/25 08:59 QDAY PRN PROTOCOL Plan This is a 45-year-old male with no significant PMHx presenting with LLE swelling and pain. Admitted for SSTI, found to have septic arthritis of the left knee joint and left leg abcess. #Septic Arthritis of the Left Knee #Left leg abscess Patient presenting with 6 days of progressive knee then leg swelling. Afebrile with stable vitals, but significant knee tenderness and pitting edema of the left leg. No pain out of proportion to exam. WBC 12.3. ESR 94. CT demonstrated a 6.8x2.3 fluid collection between the medial head of the gastrocnemius and the soleus. Dopplar US negative for DVT. Synovial fluid analysis of the knee joint was notable for 52,000 WBCs. Patient taken for washout of the knee and fasciotomy. Was found to have extensive purulent material in the gastroc fluid collection as well as in the knee. Cultures taken from both sites. With lack of trauma, this is likely from hematogenous spread from unclear source. Differential includes endocarditis versus disseminated gonococcal infection. There was concern for possible intrabdominal infection based on the lesions visualized on the abdomen. CT of Abd and pelvis was only notable for pulmonary nodules and localized thickening of the wall of the sigmoid colon. 6 month f/u CT of the nodules and F/U colonoscopy to rule out malignant process was recommended. -Blood and surgery cultures pending, left leg cultures grew G+ cocci. -Vanc and cefipime -ECHO pending. #Dysuria Complains of burning sensation with urination since 1 week ago with dark urine. Denies penile discharge or foul smelling urine. Possible UTI. Normal renal function. Continues to deny dysuria today. ? UA negative for evidence of infection. ? Antibiotic as above ? Pending Urine culture #Hypokalemia (resolved) Likely from poor intake. Resolved after repletion. Health Maintenance: DVT prophylaxis: Heparin Diet: Regular diet Fry: No Lines: PIV CODE STATUS: Full code Disposition: Pending cultures and infectious workup. Patient's plan and care discussed with my attending, Dr. [place] MD. Jake Thomas DO PGY-1 ([facility] Resident) Attending Provider Attestation/Addendum 45-year-old male with no past medical history presented with knee pain found to have septic arthritis and left leg abscesses status post surgical intervention and wound VAC in place. Plan to continue IV antibiotic therapy.I reviewed above note and agree with findings and plans. I have also personally examined the patient with medicine team and went over assessment and plan with medical team including chemist intern and resident physician.
[2025-05-08] MEDS: VANCOMYCIN/WATER 1250 MG IVPB 250 ML 120 MG IV ×2 (10:43→22:08)
--- NOTE | 2025-05-08 10:55 | PD.ORTHPN ---
Subjective Subjective Brief History: Status post I&D Narrative: Patient is a 45-year-old male status post irrigation debridement of the knee and the leg. He is doing well. We will follow cultures. He should continue IV antibiotics. An ID consult is necessary and we are still pending this Exam Vital Signs Temp Pulse Resp BP Pulse Ox O2 Del Method O2 Flow Rate 97.6 F 75 18 105/74 97 Room Air 2 05/08/25 08:00 05/08/25 08:00 05/08/25 08:00 05/08/25 08:00 05/08/25 08:00 05/08/25 08:00 05/07/25 14:18 Additional findings Additional findings: Patient is in no acute distress and is cooperative with the examination today. Patient has a normal mood and affect. Breathing is nonlabored. In no respiratory distress. Bilateral extremities were evaluated and demonstrates sensation intact to light touch. Palpable pedal pulses are present. No significant edema is present. Compartment are soft. He has no pain with EHL FHL plantarflexion and dorsiflexion Left leg has a wound VAC on the knee and leg which is an incisional VAC. Output is minimal Objective - Ortho Labs 05/11/25 04:57 05/12/25 05:25 Labs: Laboratory Results - last 24 hr 05/08/25 05/08/25 05:00 09:10 WBC 9.7 RBC 4.28 L Hgb 12.4 L Hct 39.7 L MCV 93 MCH 29.0 MCHC 31.2 RDW Std Deviation 45.1 H Plt Count 275 Neut % (Auto) 61 Lymph % (Auto) 27 [place] % (Auto) 9 Eos % (Auto) 1 Baso % (Auto) 0 Neut # (Auto) 5.8 Lymph # (Auto) 2.6 [place] # (Auto) 0.9 H Eos # (Auto) 0.1 Baso # (Auto) 0.0 Immature Gran # (Auto) 0.23 H Absolute Nucleated RBC 0.00 Immature Gran % 2 H Nucleated RBC % 0 Sodium 137 Potassium 3.9 D Chloride 101 Carbon Dioxide 27.5 Anion Gap 9 BUN 9 Creatinine 0.6 Estim Creat Clear Calc 146.6 eGFR > 60 BUN/Creatinine Ratio 15 Glucose 80 Calculated Osmolality 271 L Calcium 8.4 Phosphorus 3.5 Magnesium 1.6 Vancomycin Trough 8.2 Assessment & Plan Diagnosis (1) Septic arthritis of knee: Status: Acute Assessment Additional comments: Patient is a 45-year-old male who is status post I&D left septic knee and a abscess of the left knee. We will follow cultures. The patient reports the pain is significantly better than before surgery. His compartments are soft. - DVT prophylaxis - Follow cultures - Continue antibiotics
[2025-05-08 11:30] LABS: Cocci Serology, IgM Negative (Negative)
--- NOTE | 2025-05-08 16:19 | PC.SS ---
SS follow up note; Patient is pending Cultures. Patient will discharge home when medically cleared. SS contacted financial counselor, Ana Luisa in regards to getting patient established with Medical. Ana Luisa reported that she would go meet with patient and bedside to present Medical services.
[2025-05-09] VITALS (7 sets, daily range): BP systolic 108–131; BP diastolic 61–84; PULSE 74–91; RESP 14–18; TEMP 36.1–37.1; O2SAT 96–97
[2025-05-09] MEDS: CEFEPIME INJ 2 GM in SODIUM CHLORIDE 0.9% (Popper) 50 ML IV (05:11)
[2025-05-09] MEDS: HEPARIN SOD INJ 5000 UNIT/ML VIAL SC ×3 (05:11→22:54)
[2025-05-09 06:02] LABS: Basophils # (Auto) 0.0 Thou/mm3 (0.0-0.2); Basophils % (Auto) 0 % (0-2.5); Eosinophils # (Auto) 0.0 Thou/mm3 (0.0-0.5); Eosinophils % (Auto) 0 % (0-10); Hematocrit 37.4 % (41.0-53.0); Hemoglobin 12.0 g/dL (13.5-16.0); Immature Granulocytes Auto 0.32 Thou/mm3 (0.00-0.00); Lymphocytes # (Auto) 2.5 Thou/mm3 (1.0-4.8); Lymphocytes % (Auto) 28 % (10-50); Mean Corpuscular HGB Conc 32.1 g/dl (31.0-37.0); Mean Corpuscular Hemoglobin 29.3 pg (25.0-35.0); Mean Corpuscular Volume 91 fL (80-100); Monocytes # (Auto) 1.1 Thou/mm3 (0.0-0.8); Monocytes % (Auto) 12 % (0-12); Neutrophils # (Auto) 5.0 Thou/mm3 (1.8-7.7); Neutrophils % (Auto) 56 % (37-80); Nucleated Red Blood Cell # 0.00 Thou/mm3 (0.00-0.00); Nucleated Red Blood Cell % 0 /100 WBC (0); Platelet Count 291 Thou/mm3 (140-440); RDW Standard Deviation 43.9 fL (35.1-43.9); Red Blood Count 4.09 Miln/mm3 (4.50-5.90); White Blood Count 9.0 Thou/mm3 (3.8-10.6)
[2025-05-09 06:22] LABS: Anion Gap 10 (7-16); BUN/Creatinine Ratio 13 Ratio (12-20); Blood Urea Nitrogen 9 mg/dL (9-23); Calcium 8.5 mg/dL (8.3-10.6); Carbon Dioxide 25.7 mMol/L (20.0-31.0); Chloride 100 mMol/L (98-107); Creatinine (Component) 0.7 mg/dL (0.6-1.3); Estimated Creatinine Clearance 123.0 mL/min (>60); Glucose 92 mg/dL (74-106); Magnesium 1.9 mg/dL (1.6-2.6); Osmolality,Calculated 270 (275-295); Phosphorous 3.5 mg/dL (2.4-5.1); Potassium 3.9 mMol/L (3.4-5.1); Sodium 136 mMol/L (136-145); eGFR > 60 See Note
--- NOTE | 2025-05-09 09:13 | ESCONSULT_ITS ---
<Statement entered by Neftali Jaime MD - 05/12/25 09:27> pt seen with resident. all findings confirmed. see my notes for details as his notes are sketchy at best HPI Data of Consult Requesting Physician: Ez Schaffer MD Admitting Provider: Emelyn Mcintyre MD Attending Provider: Ez Schaffer MD Primary Care Provider: Rafita Streeter, C[employer]AM[employer] SPECIALIST-C Consult Narrative History of present illness: The patient is a 45-year-old male with no significant past medical history presented to ED on 05/06/2025 with chief complaint of left lower extremity pain and swelling that was worsening for past [address] Schaffer was consulted, who performed left knee irrigation and debridement as well as left leg wound exploration and irrigation and debridement including fasciotomies and wound VAC basement on 05/07/2025. The patient was started on vancomycin and cefepime, during admission. The culture from left knee wound and tissue specimen grew Staph aureus, with negative any aerobes that was pansensitive. The patient admitted mild to moderate tenderness over left knee and leg, but the patient denied any headache, dizziness, nausea or vomiting, fever or chills, any changes in bowel or bladder habit, chest pain or abdominal pain. During my evaluation, his vitals were stable, labs revealed WBC 9.0, hemoglobin 12.0, chemistry panel WNL, and imaging done on 05/06/2025 revealed venous Doppler negative for DVT, lower left extremity CT revealed significant knee effusion and probable popliteal cyst on the posterior medial side of the knee, 6.8 x 2.3 cm fluid hematoma collection between the medial head of the gastrocnemius and soleus muscle. Chest abdomen and pelvis CT revealed noncalcified pulmonary nodules, suspected primary hepatocellular disease, localized thickening of the wall of the sigmoid colon. TTE revealed no evidence of any valvular vegetations, LVEF 55 to 60%. PMH: None Surgical history: None Medications: None Allergies: None Social history: Works in field, denies alcohol, tobacco or illicit drug use Family history: Noncontributory ID consultation was done for further management of septic arthritis of knee. cc:: cc: Ez Schaffer MD Review of Systems Review of Systems Systems Reviewed: All systems reviewed, normal except as documented (Above) Exam Vital Signs Temp Pulse Resp BP Pulse Ox O2 Del Method O2 Flow Rate 98.7 F 78 18 114/74 97 Room Air 2 05/09/25 08:00 05/09/25 08:00 05/09/25 08:00 05/09/25 08:00 05/09/25 08:00 05/09/25 08:00 05/07/25 14:18 Narrative Exam General: No acute distress, Alert and Oriented x 3 HEENT: Moist mucous membranes, oropharynx clear Neck: Supple, No masses, No JVD CVS: S1S2 Regular rate and rhythm, No murmurs, rubs or gallops Lungs: Clear to auscultation with no accessory use, no wheeze no rhonchi Abd: Soft, NT/ND, +BS, no organomegaly Ext: Left knee and leg with mild erythema and swelling, and wound VAC extending from knee to mid coffman, other extremities with no edema, 2+ peripheral pulses Skin: No rash Psych: Appropriate mood and affect Results Labs 05/09/25 04:47 05/09/25 04:47 Labs: Short CBC 05/09/25 Range/Units 04:47 WBC 9.0 (3.8-10.6) Thou/mm3 Hgb 12.0 L (13.5-16.0) g/dL Hct 37.4 L (41.0-53.0) % Plt Count 291 (140-440) Thou/mm3 BMP 05/09/25 04:47 Sodium 136 Potassium 3.9 Chloride 100 Carbon Dioxide 25.7 BUN 9 Creatinine 0.7 Glucose 92 Calcium 8.5 Quality Measures Quality Measures none Medications Home Medications and Allergies Allergies Allergy/AdvReac Type Severity Reaction Status Date / Time No Known Allergies Allergy Verified 05/06/25 12:30 Visit Medications Acetaminophen (Acetaminophen 325 Mg Tablet) 650 mg PO Q6H PRN PRN Reason: PAIN SCALE 1-3 (mild Stop: 06/05/25 22:06 Acetaminophen (Acetaminophen 325 Mg Tablet) 650 mg PO Q6H PRN PRN Reason: Fever >100.4 Stop: 06/05/25 22:06 Last Admin: 05/06/25 23:16 Dose: 650 mg Hydrocodone Bitart/Acetaminophen (Hydrocodone/Apap 10/325 Tab) 1 tab PO Q4HR PRN PRN Reason: PAIN SCALE 7-10 (Severe Stop: 05/11/25 22:06 Last Admin: 05/09/25 02:36 Dose: 1 tab Heparin Sodium (Porcine) (Heparin Sod Inj 5000 Unit/Ml Vial) 5,000 unit SC Q8HR JAROD Stop: 05/21/25 05:59 Last Admin: 05/09/25 05:11 Dose: 5,000 unit Cefepime HCl 2 gm/ Sodium (Chloride) 50 mls @ 100 mls/hr IV Q8HR JAROD Stop: 05/14/25 11:29 Last Admin: 05/09/25 05:11 Dose: 100 mls/hr Vancomycin HCl/Dextrose (Vancomycin/D5w 1500 Mg Ivpb) 300 mls @ 120 mls/hr IV BID@1000,2200 JAROD; Protocol Stop: 05/16/25 09:59 Ondansetron HCl (Ondansetron Inj 2 Mg/Ml Inj 2 Ml) 4 mg IVP Q6H PRN; Protocol PRN Reason: NAUSEA OR VOMITING Stop: 06/05/25 22:06 Oxycodone/Acetaminophen (Oxycodone/Apap 5/325 Tablet) 1 tab PO Q6H PRN PRN Reason: PAIN SCALE 4-6 (Moderate Stop: 05/11/25 22:06 Last Admin: 05/09/25 08:17 Dose: 1 tab Pantoprazole Sodium (Pantoprazole Inj 40 Mg Vial) 40 mg IVP QDAY JAROD Stop: 06/06/25 08:59 Last Admin: 05/08/25 08:17 Dose: 40 mg Pharmacy Consult (Vancomycin Pharmacy To Dose 1 Each Each) 1 each IV QDAY PRN PRN Reason: PROTOCOL Stop: 06/06/25 08:59 Discontinued Medications Fentanyl Citrate (Fentanyl Cit Inj 50 Mcg/Ml Amp 2ml) 50 mcg IVP X1 ONE Stop: 05/07/25 14:39 Last Admin: 05/07/25 14:45 Dose: 50 mcg Piperacillin/Tazobactam/Dextrose (Zosyn) 3.375 gm in 50 mls @ 100 mls/hr IV X1 ONE; Protocol Stop: 05/06/25 20:21 Last Infusion: 05/06/25 20:47 Dose: Infused Vancomycin/Sodium Chloride (Vancomycin/Ns 1 Gm Ivpb) 200 mls @ 120 mls/hr IV X1 ONE Stop: 05/06/25 21:32 Last Infusion: 05/06/25 22:37 Dose: Infused Piperacillin/Tazobactam/Dextrose (Zosyn) 3.375 gm in 50 mls @ 100 mls/hr IV Q6HR JAROD; Protocol Stop: 05/14/25 00:00 Last Admin: 05/07/25 05:10 Dose: 100 mls/hr Sodium Chloride (Ns) 1,000 mls @ 100 mls/hr IV .Q10H [facility] Stop: 05/07/25 08:14 Last Infusion: 05/07/25 08:46 Dose: Infused Potassium Chloride (Kcl Ivpb) 10 meq in 100 mls @ 100 mls/hr IV Q1H JAROD Stop: 05/07/25 02:14 Last Admin: 05/07/25 02:12 Dose: 100 mls/hr Vancomycin HCl (Vancomycin/Water 1250 Mg Ivpb) 250 mls @ 120 mls/hr IV BID@1000,2200 JAROD; Protocol Stop: 05/14/25 09:59 Last Admin: 05/08/25 22:08 Dose: 120 mls/hr Acetaminophen (Ofirmev Inj) 1,000 mg in 100 mls @ 250 mls/hr IV X1 ONE Stop: 05/07/25 15:01 Last Infusion: 05/07/25 15:14 Dose: Infused Ketorolac Tromethamine (Ketorolac Inj 30 Mg/Ml Vial) 30 mg IVP X1 ONE Stop: 05/07/25 14:39 Last Admin: 05/07/25 14:51 Dose: 30 mg Morphine Sulfate (Morphine Sulf Inj 4 Mg/Ml Vial) 4 mg IVP X1 ONE Stop: 05/06/25 16:41 Last Admin: 05/06/25 18:00 Dose: 4 mg Ondansetron HCl (Ondansetron Inj 2 Mg/Ml Inj 2 Ml) 4 mg IVP X1 ONE Stop: 05/06/25 16:41 Last Admin: 05/06/25 18:00 Dose: 4 mg Potassium Chloride (Potassium Chloride 20 Meq Tabcr) 40 meq PO X1 ONE Stop: 05/06/25 22:12 Last Admin: 05/06/25 22:45 Dose: 40 meq Assessment & Plan Plan The patient is a 45-year-old male with no significant past medical history presented to ED on 05/06/2025 with chief complaint of left lower extremity pain and swelling that was worsening for past [address] Schaffer was consulted, who performed left knee irrigation and debridement as well as left leg wound exploration and irrigation and debridement including fasciotomies and wound VAC basement on 05/07/2025. The patient was started on vancomycin and cefepime, during admission. The culture from left knee wound and tissue specimen grew Staph aureus, with negative any aerobes that was pansensitive. ID consultation was done for further management of septic arthritis of knee. #Septic arthritis of left knee #Left leg abscess The patient presented with left knee and leg swelling and pain that was worsening for past 7 days. Culture from left knee wound and tissue specimen grew Staph aureus that were pansensitive The patient was initially placed on vancomycin and cefepime - Orthopedics Dr. Schaffer on board - Continue with ceftriaxone 2 g daily until 06/04/2025, and p.o. antibiotics not advised - Continue to monitor closely #Dysuria The patient initially complained of dysuria UA was negative, urine culture came back negative - UTI ruled out Thank you for your opportunity to participate in this patient care. Infectious disease team will sign off from this case, for now, and if required will will be happy to participate in this patient management. The patient's management plan was discussed with my attending physician MD Hussein Pinto MD, PGY3
--- NOTE | 2025-05-09 09:39 | PC.SS ---
Rounding: Pt has a wound vac, pending Dr. Yeni moore for IV ABX, Team aware pt does not possess coverage for HH. DC plan home.
[2025-05-09] MEDS: VANCOMYCIN/D5W 1500 MG IVPB 300 ML 120 MG IV (09:47)
--- NOTE | 2025-05-09 09:55 | ESPR_ITS ---
Subjective Subjective Interval history: abscess vs septic arthritis. insurance may be limiting po rx not appropriate, cs with staph. ox s Exam Vital Signs Temp Pulse Resp BP Pulse Ox O2 Del Method O2 Flow Rate 98.7 F 78 18 114/74 97 Room Air 2 05/09/25 08:00 05/09/25 08:00 05/09/25 08:00 05/09/25 08:00 05/09/25 08:00 05/09/25 08:00 05/07/25 14:18 Narrative Exam vac on L leg. limited to no rom. cx noted. Objective - Internal Medicine Labs 05/09/25 04:47 05/09/25 04:47 Labs: Laboratory Results - last 24 hr 05/08/25 05/09/25 05:00 04:47 WBC 9.0 RBC 4.09 L Hgb 12.0 L Hct 37.4 L MCV 91 MCH 29.3 MCHC 32.1 RDW Std Deviation 43.9 Plt Count 291 Neut % (Auto) 56 Lymph % (Auto) 28 [place] % (Auto) 12 Eos % (Auto) 0 Baso % (Auto) 0 Neut # (Auto) 5.0 Lymph # (Auto) 2.5 [place] # (Auto) 1.1 H Eos # (Auto) 0.0 Baso # (Auto) 0.0 Immature Gran # (Auto) 0.32 H Absolute Nucleated RBC 0.00 Immature Gran % 4 H Nucleated RBC % 0 Sodium 136 Potassium 3.9 Chloride 100 Carbon Dioxide 25.7 Anion Gap 10 BUN 9 Creatinine 0.7 Estim Creat Clear Calc 123.0 eGFR > 60 BUN/Creatinine Ratio 13 Glucose 92 Calculated Osmolality 270 L Calcium 8.5 Phosphorus 3.5 Magnesium 1.9 Coccidioides IgM Ab Negative Assessment & Plan A&P Narrative septic arthritis denies other health concerns at most borderline dm II ok for rocephin 2 gm iv daily thru 06/04. 4 weeks.ordered the rocephin. no po options noted. so if he has to stay then he has to stay. Time Spent With Patient Time: Total time spent is greater than 50% in coordination of care (as documented) at patient's floor/unit and/or counseling patient:
--- NOTE | 2025-05-09 11:15 | ESCONSULT_ITS ---
RE: ROSMERY RIOJAS : 1980 DATE OF CONSULTATION: 05/09/2025 REFERRING PHYSICIAN: Dr. Boyle. REASON FOR CONSULTATION: Septic arthritis and abscess of the left knee. HISTORY OF PRESENT ILLNESS: The patient has had left knee pain and swelling for about 2-3 days prior to admission. He had surgery on the . Gram stain was initially negative, but then GPC showed up and cultures have shown Staph aureus, ox sensitive. He denies other health problems and labs did show at most borderline diabetes. He does not take any medications and his surgical history is consistent with prior right knee surgery in the past and left knee surgery at this admission. ALLERGIES: NONE NOTED. IMMUNIZATIONS: Last tetanus about 1 day ago or 1 month ago at most. He does take flu shot every year. He has had two COVID vaccines and does not recall pneumococcal vaccine FAMILY HISTORY: Unremarkable. SOCIAL HISTORY: He lives at home with his and two children. He works in the [email or web address] industry. PHYSICAL EXAMINATION: On exam, the patient has limited range of motion of the left knee. There is wound VAC on the left leg and there is generalized swelling of the left leg as noted as well. Labs are as noted. Our team is fond of checking labs berenice day. His white count has normalized. RECOMMENDATIONS: Usual treatment for this is going to be Rocephin 2 g a day for the planned duration, which is 28 days, noting his initial surgery was on the . Treatment should be through about 06/04. I will see him again on a p.r.n. basis. there are no po options per guidelines but if you chose to give him po. rx, just document that choice and a rationale. I will not plan any f/u visits at this point in time DT: 10:03:42 TT: 10:18:00 Ref: [id number] - TID: [id number] MTDD
[2025-05-09] MEDS: cefTRIAXone/D5w 2gm 2 GM/50 ML BAG IV (11:16)
--- NOTE | 2025-05-09 11:56 | ESPR_ITS ---
<Statement entered by Michelle Soria MD - 05/10/25 07:36> I discussed with and supervised the internal control analyst physician who took care of this patient. I personally saw and examined the patient and discussed the assessment and plan with the entire medicine team, including my attending Dr. Boyle, I agree with most of the assessment and plan as documented below Michelle Soria M.D. PGY-3 Documentation for date of: 05/09/25 Subjective Subjective Interval history: Patient Examined at bedside, NAOE. Patient states hes doing ok, about the same regarding pain. He's had minimal output out of the left leg wound vac. Examination was notable for multiple small scabs on the abdomen that were not fluctant. He also had some swelling of the right ring finger that he attributes to getting stuck with a thorn while picking oranges. He states that it once expressed a splinter but it is not currently painful. He [place] and notes getting stuck with with thorns frequently. He has been afebrile with stable vitals, no tachycardia. Leukocytosis resolved. Cultures from the leg abcess grew MSSA. Pending cocci serology IgG at this time. ID consulted reccomended: continue Rocephin 2 g a day end date 06/04. Continue IV antibiotics (d/c vanc and cefepime) start IV Ceftriaxone 2gm qd. Started 05/09 Wound Cultures with MSSA, pansensitive Will need PICC line placement (likely saturday 05/12) Exam Vital Signs Temp Pulse Resp BP Pulse Ox O2 Del Method O2 Flow Rate 98.7 F 78 18 114/74 97 Room Air 2 05/09/25 08:00 05/09/25 08:00 05/09/25 08:00 05/09/25 08:00 05/09/25 08:00 05/09/25 08:00 05/07/25 14:18 Narrative Exam General: Turkish speaking, middle aged patient, no acute distress. HEENT: Mucosa moist. Pupils are equal. Cardiovascular: Regular rate and rhythm without murmur or rub. DP pulses 2+ bilaterally. Respiratory: Lungs clear to auscultation bilaterally. Abdomen: Soft, nontender, not distended, multiple small scabs scattered on the abdomen without underlying fluctuance. Skin: Dry, shiny appearing along the left lower extremity. Staining from the surgical betadine. No breaks in the skin on the LLE. Musculoskeletal: Knee is edematous along with the lower leg. Pitting edema. Wound vac in place extending from over the anterior portion of the knee down to mid leg. Dressing is clean/dry/intact with minimal drainage in the tubing. Neuro: Alert and oriented x3. Intact sensation of the left lower extremity. Psych: Normal affect and mood Objective Labs 05/14/25 05:06 05/14/25 05:06 Labs: Laboratory Results - last 24 hr 05/09/25 04:47 WBC 9.0 RBC 4.09 L Hgb 12.0 L Hct 37.4 L MCV 91 MCH 29.3 MCHC 32.1 RDW Std Deviation 43.9 Plt Count 291 Neut % (Auto) 56 Lymph % (Auto) 28 [place] % (Auto) 12 Eos % (Auto) 0 Baso % (Auto) 0 Neut # (Auto) 5.0 Lymph # (Auto) 2.5 [place] # (Auto) 1.1 H Eos # (Auto) 0.0 Baso # (Auto) 0.0 Immature Gran # (Auto) 0.32 H Absolute Nucleated RBC 0.00 Immature Gran % 4 H Nucleated RBC % 0 Sodium 136 Potassium 3.9 Chloride 100 Carbon Dioxide 25.7 Anion Gap 10 BUN 9 Creatinine 0.7 Estim Creat Clear Calc 123.0 eGFR > 60 BUN/Creatinine Ratio 13 Glucose 92 Calculated Osmolality 270 L Calcium 8.5 Phosphorus 3.5 Magnesium 1.9 Quality Measures Quality Measures VTE prophylaxis Assessment & Plan Assessment Current Active Medications: Generic Name Dose Route Start Last Admin Trade Name Eliezer PRN Reason Stop Dose Admin Acetaminophen 650 mg 05/06/25 22:07 Acetaminophen 325 Mg Tablet PO 06/05/25 22:06 Q6H PRN PAIN SCALE 1-3 (mild Acetaminophen 650 mg 05/06/25 22:07 05/06/25 23:16 Acetaminophen 325 Mg Tablet PO 06/05/25 22:06 650 mg Q6H PRN Administration Fever >100.4 Hydrocodone Bitart/Acetaminophen 1 tab 05/06/25 22:07 05/09/25 09:55 Hydrocodone/Apap 10/325 Tab PO 05/11/25 22:06 1 tab Q4HR PRN Administration PAIN SCALE 7-10 (Severe Heparin Sodium (Porcine) 5,000 unit 05/07/25 06:00 05/09/25 05:11 Heparin Sod Inj 5000 Unit/Ml Vial SC 05/21/25 05:59 5,000 unit Q8HR JAROD Administration Ceftriaxone Sodium/Dextrose 2 gm in 50 mls @ 100 mls/hr 05/09/25 10:15 05/09/25 11:16 Rocephin/D5w 2gm IV 06/04/25 12:00 100 mls/hr QDAY JAROD Administration Ondansetron HCl 4 mg 05/06/25 22:07 Ondansetron Inj 2 Mg/Ml Inj 2 Ml IVP 06/05/25 22:06 Q6H PRN NAUSEA OR VOMITING Protocol Oxycodone/Acetaminophen 1 tab 05/06/25 22:07 05/09/25 08:17 Oxycodone/Apap 5/325 Tablet PO 05/11/25 22:06 1 tab Q6H PRN Administration PAIN SCALE 4-6 (Moderate Pantoprazole Sodium 40 mg 05/07/25 09:00 05/09/25 09:47 Pantoprazole Inj 40 Mg Vial IVP 06/06/25 08:59 40 mg QDAY JAROD Administration Plan This is a 45-year-old male with no significant PMHx presenting with LLE swelling and pain. Admitted for SSTI, found to have septic arthritis of the left knee joint and left leg abcess. Wound cultures with MSSA # Septic Arthritis of the Left Knee #Left leg abscess, MSSA Patient presenting with 6 days of progressive knee then leg swelling. Afebrile with stable vitals, but significant knee tenderness and pitting edema of the left leg. No pain out of proportion to exam. WBC 12.3. ESR 94. CT demonstrated a 6.8x2.3 fluid collection between the medial head of the gastrocnemius and the soleus. Dopplar US negative for DVT. Synovial fluid analysis of the knee joint was notable for 52,000 WBCs. Patient taken for washout of the knee and fasciotomy. Was found to have extensive purulent material in the gastroc fluid collection as well as in the knee. Cultures taken from both sites, MSSA in abscess With lack of trauma, this is likely from hematogenous spread from unclear source. Differential includes endocarditis versus disseminated gonococcal infection. There was concern for possible intrabdominal infection based on the lesions visualized on the abdomen. CT of Abd and pelvis was only notable for pulmonary nodules and localized thickening of the wall of the sigmoid colon. 6 month f/u CT of the nodules and F/U colonoscopy to rule out malignant process was recommended. -s/p i and d on 05/[address] Schaffer -wound cultures with MSSA prater sensitive -Blood and surgery cultures pending, left leg cultures grew G+ cocci. -d/c Vanc and cefipime (05/06- 05/09) -Ceftriaxone 1gm IV (05/09- end date 06/04) (4 week abx course ) -TTE: Normal LV size and function. Estimated EF at 55-60 %. Normal diastolic function The RV size is mildy increased with normal systolic function. -f/u with IR for PICC line placement (monday) #Dysuria- (resolved) Complains of burning sensation with urination since 1 week ago with dark urine. Denies penile discharge or foul smelling urine. Possible UTI. Normal renal function. Continues to deny dysuria today. ? UA negative for evidence of infection. ? Antibiotic as above ? Urine cx NGTD #Hypokalemia (resolved) Likely from poor intake. Resolved after repletion. Health Maintenance: DVT prophylaxis: Heparin Diet: Regular diet Fry: No Lines: PIV CODE STATUS: Full code Disposition: Pending cultures and infectious workup. Patient's plan and care discussed with my attending, Dr. [place] MD. Jake Thomas, PGY-1 ([facility] Resident) Attending Provider Attestation/Addendum 45-year-old male with no past medical history presented with knee pain found to have septic arthritis and left leg abscesses status post surgical intervention and wound VAC in place. Plan to continue IV antibiotic therapy.I reviewed above note and agree with findings and plans. I have also personally examined the patient with medicine team and went over assessment and plan with medical team including internal control analyst and resident physician.
[2025-05-10] VITALS (7 sets, daily range): BP systolic 99–133; BP diastolic 74–98; PULSE 75–92; RESP 15–19; TEMP 36–36.6; O2SAT 93–97
[2025-05-10] MEDS: HEPARIN SOD INJ 5000 UNIT/ML VIAL SC ×3 (05:19→21:42)
[2025-05-10 05:24] LABS: Basophils # (Auto) 0.0 Thou/mm3 (0.0-0.2); Basophils % (Auto) 1 % (0-2.5); Eosinophils # (Auto) 0.1 Thou/mm3 (0.0-0.5); Eosinophils % (Auto) 1 % (0-10); Hematocrit 37.4 % (41.0-53.0); Hemoglobin 12.0 g/dL (13.5-16.0); Immature Granulocytes Auto 0.36 Thou/mm3 (0.00-0.00); Lymphocytes # (Auto) 2.1 Thou/mm3 (1.0-4.8); Lymphocytes % (Auto) 27 % (10-50); Mean Corpuscular HGB Conc 32.1 g/dl (31.0-37.0); Mean Corpuscular Hemoglobin 29.3 pg (25.0-35.0); Mean Corpuscular Volume 91 fL (80-100); Monocytes # (Auto) 1.1 Thou/mm3 (0.0-0.8); Monocytes % (Auto) 13 % (0-12); Neutrophils # (Auto) 4.4 Thou/mm3 (1.8-7.7); Neutrophils % (Auto) 54 % (37-80); Nucleated Red Blood Cell # 0.00 Thou/mm3 (0.00-0.00); Nucleated Red Blood Cell % 0 /100 WBC (0); Platelet Count 291 Thou/mm3 (140-440); RDW Standard Deviation 42.9 fL (35.1-43.9); Red Blood Count 4.10 Miln/mm3 (4.50-5.90); White Blood Count 8.0 Thou/mm3 (3.8-10.6)
[2025-05-10 06:08] LABS: Magnesium 2.1 mg/dL (1.6-2.6); Phosphorous 3.1 mg/dL (2.4-5.1)
[2025-05-10] MEDS: cefTRIAXone/D5w 2gm 2 GM/50 ML BAG IV (07:57)
[2025-05-10 10:16] LABS: Alanine Aminotransferase 84 U/L (10-49); Albumin, Serum 3.5 gm/dL (3.5-5.0); Albumin/Globulin Ratio 1.1 (1.2-2.2); Alkaline Phosphatase 111 U/L (46-116); Anion Gap 7 (7-16); Aspartate Amino Transferase 56 U/L (0-34); BUN/Creatinine Ratio 13 Ratio (12-20); Bilirubin,Total 0.4 mg/dL (0.3-1.2); Blood Urea Nitrogen 9 mg/dL (9-23); Calcium 8.8 mg/dL (8.3-10.6); Calcium (Corrected) 9.2 mg/dL (8.5-10.1); Carbon Dioxide 28.5 mMol/L (20.0-31.0); Chloride 99 mMol/L (98-107); Creatinine (Component) 0.7 mg/dL (0.6-1.3); Estimated Creatinine Clearance 123.0 mL/min (>60); Globulin 3.1 gm/dL (2.3-3.5); Glucose 113 mg/dL (74-106); Osmolality,Calculated 267 (275-295); Potassium 3.9 mMol/L (3.4-5.1); Sodium 134 mMol/L (136-145); Total Protein 6.6 gm/dL (5.7-8.2); Vancomycin,Trough < 3.0 mcg/mL (5.0-10.0); eGFR > 60 See Note
--- NOTE | 2025-05-10 11:08 | PC.SS ---
SHINE received a call from JYOTSNA Dang regarding the patient's having Medi[employer] questions. SHINE met with the patient and his at bedside; the patient's reports she had a brief conversation with KIRAN Orosco, but was driving and was not able to have a full conversation. SHINE updated her that KIRAN does not work on the weekend, but on Monday, KIRAN Orosco will f/u with her. SHINE sent an email to KIRAN Tom.
[2025-05-10 13:49] LABS: Cocci Serology, IgG Negative (Negative)
--- NOTE | 2025-05-10 14:06 | PD.RESPRO ---
Documentation for date of: 05/10/25 Subjective Subjective Interval history: Patient examined at bedside. No events overnight. Complains of left knee pain for washout was and incision and drainage of the abscess. Vitals are stable, labs unremarkable. Left knee has wound VAC in place with good seal. Dressing is clean/dry/intact, Right fourth finger swollen DIP, edematous, able to express small amount of exudate. Per patient, swelling has improved since starting antibiotics. Continue IV ceftriaxone 2g daily for left leg abscess and septic arthritis of left knee. Wound cultures grew MSSA. Will need PICC line placement if he is able to get authorization for SNF. Exam Vital Signs Temp Pulse Resp BP Pulse Ox O2 Del Method O2 Flow Rate 97.6 F 75 18 126/89 H 95 Room Air 2 05/10/25 12:00 05/10/25 12:00 05/10/25 12:05/10/25 12:05/10/25 12:00 05/10/25 12:00 05/07/25 14:18 Narrative Exam General: Wolof speaking, middle aged patient, no acute distress. HEENT: Mucosa moist. Pupils are equal. Cardiovascular: Regular rate and rhythm without murmur or rub. Respiratory: Lungs clear to auscultation bilaterally. Abdomen: Soft, nontender, not distended, multiple small scabs scattered on the abdomen without underlying fluctuance. Improving. Skin: Left knee has wound VAC in place with good seal. Right fourth finger swollen DIP. Musculoskeletal: Knee is edematous along with the lower leg. Pitting edema. Wound vac in place extending from over the anterior portion of the knee down to mid leg. Dressing is clean/dry/intact with minimal drainage in the tubing. Neuro: Alert and oriented x3. Intact sensation of the left lower extremity. Psych: Normal affect and mood Objective Labs 05/14/25 05:06 05/14/25 05:06 Labs: Laboratory Results - last 24 hr 05/08/25 05/10/25 05/10/25 05:00 05:00 08:59 WBC 8.0 RBC 4.10 L Hgb 12.0 L Hct 37.4 L MCV 91 MCH 29.3 MCHC 32.1 RDW Std Deviation 42.9 Plt Count 291 Neut % (Auto) 54 Lymph % (Auto) 27 [place] % (Auto) 13 H Eos % (Auto) 1 Baso % (Auto) 1 Neut # (Auto) 4.4 Lymph # (Auto) 2.1 [place] # (Auto) 1.1 H Eos # (Auto) 0.1 Baso # (Auto) 0.0 Immature Gran # (Auto) 0.36 H Absolute Nucleated RBC 0.00 Immature Gran % 5 H Nucleated RBC % 0 Sodium 134 L Potassium 3.9 Chloride 99 Carbon Dioxide 28.5 Anion Gap 7 BUN 9 Creatinine 0.7 Estim Creat Clear Calc 123.0 eGFR > 60 BUN/Creatinine Ratio 13 Glucose 113 H Calculated Osmolality 267 L Calcium 8.8 Corrected Calcium 9.2 Phosphorus 3.1 Magnesium 2.1 Total Bilirubin 0.4 AST 56 H ALT 84 H Alkaline Phosphatase 111 Total Protein 6.6 Albumin 3.5 Globulin 3.1 Albumin/Globulin Ratio 1.1 L Vancomycin Trough < 3.0 L Coccidioides IgG Ab Negative Quality Measures Quality Measures VTE prophylaxis Assessment & Plan Assessment Current Active Medications: Generic Name Dose Route Start Last Admin Trade Name Freq PRN Reason Stop Dose Admin Acetaminophen 650 mg 05/06/25 22:07 Acetaminophen 325 Mg Tablet PO 06/05/25 22:06 Q6H PRN PAIN SCALE 1-3 (mild Acetaminophen 650 mg 05/06/25 22:07 05/06/25 23:16 Acetaminophen 325 Mg Tablet PO 06/05/25 22:06 650 mg Q6H PRN Administration Fever >100.4 Hydrocodone Bitart/Acetaminophen 1 tab 05/06/25 22:07 05/10/25 12:04 Hydrocodone/Apap 10/325 Tab PO 05/11/25 22:06 1 tab Q4HR PRN Administration PAIN SCALE 7-10 (Severe Heparin Sodium (Porcine) 5,000 unit 05/07/25 06:00 05/10/25 13:29 Heparin Sod Inj 5000 Unit/Ml Vial SC 05/21/25 05:59 5,000 unit Q8HR JAROD Administration Ceftriaxone Sodium/Dextrose 2 gm in 50 mls @ 100 mls/hr 05/09/25 10:15 05/10/25 07:57 Rocephin/D5w 2gm IV 06/04/25 12:00 100 mls/hr QDAY JAROD Administration Ondansetron HCl 4 mg 05/06/25 22:07 Ondansetron Inj 2 Mg/Ml Inj 2 Ml IVP 06/05/25 22:06 Q6H PRN NAUSEA OR VOMITING Protocol Oxycodone/Acetaminophen 1 tab 05/06/25 22:07 05/10/25 09:18 Oxycodone/Apap 5/325 Tablet PO 05/11/25 22:06 1 tab Q6H PRN Administration PAIN SCALE 4-6 (Moderate Pantoprazole Sodium 40 mg 05/07/25 09:00 05/10/25 07:58 Pantoprazole Inj 40 Mg Vial IVP 06/06/25 08:59 40 mg QDAY JAROD Administration Plan This is a 45-year-old male with no significant PMHx presenting with LLE swelling and pain. Admitted for SSTI, found to have septic arthritis of the left knee joint and left leg abcess. Wound cultures with MSSA # Septic Arthritis of the Left Knee #Left leg abscess, MSSA s/p I&D Patient presenting with 6 days of progressive knee then leg swelling. Afebrile with stable vitals, but significant knee tenderness and pitting edema of the left leg. No pain out of proportion to exam. WBC 12.3. ESR 94. CT demonstrated a 6.8x2.3 fluid collection between the medial head of the gastrocnemius and the soleus. Dopplar US negative for DVT. Synovial fluid analysis of the knee joint was notable for 52,000 WBCs. Patient taken for washout of the knee and fasciotomy. Was found to have extensive purulent material in the gastroc fluid collection as well as in the knee. Cultures taken from both sites, MSSA in abscess With lack of trauma, this is likely from hematogenous spread from unclear source. Differential includes endocarditis versus disseminated gonococcal infection. There was concern for possible intrabdominal infection based on the lesions visualized on the abdomen. CT of Abd and pelvis was only notable for pulmonary nodules and localized thickening of the wall of the sigmoid colon. 6 month f/u CT of the nodules and F/U colonoscopy to rule out malignant process was recommended. Vanc and cefipime (05/06- 05/09) -s/p i and d on 05/[address] Schaffer -wound cultures with MSSA prater sensitive -cultures from left knee are negative -Ceftriaxone 2gm IV (05/09- end date 06/04) (4 week abx course ) -TTE: Normal LV size and function. Estimated EF at 55-60 %. Normal diastolic function The RV size is mildy increased with normal systolic function. -f/u with IR for PICC line placement (monday) #Dysuria- (resolved) Complains of burning sensation with urination since 1 week ago with dark urine. Denies penile discharge or foul smelling urine. Possible UTI. Normal renal function. Continues to deny dysuria today. ? UA negative for evidence of infection. ? Antibiotic as above ? Urine cx NGTD #Hypokalemia (resolved) Likely from poor intake. Resolved after repletion. Health Maintenance: DVT prophylaxis: Heparin Diet: Regular diet Fry: No Lines: PIV CODE STATUS: Full code Disposition: patient needs insurance for SNF placement. Continue IV abx until then. Patient's plan and care discussed with my attending, Dr. Boyle. Stormy Moore PGY2 Attending Provider Attestation/Addendum 45-year-old male with no past medical history presented with knee pain found to have septic arthritis and left leg abscesses status post surgical intervention and wound VAC in place. Plan to continue IV antibiotic therapy.I reviewed above note and agree with findings and plans. I have also personally examined the patient with medicine team and went over assessment and plan with medical team including human resource internship and resident physician.
[2025-05-11] VITALS (9 sets, daily range): BP systolic 106–141; BP diastolic 73–85; PULSE 82–103; RESP 17–18; TEMP 35.9–37.1; O2SAT 94–99
[2025-05-11] MEDS: HEPARIN SOD INJ 5000 UNIT/ML VIAL SC ×3 (05:23→21:06)
[2025-05-11 05:27] LABS: Basophils # (Auto) 0.0 Thou/mm3 (0.0-0.2); Basophils % (Auto) 0 % (0-2.5); Eosinophils # (Auto) 0.1 Thou/mm3 (0.0-0.5); Eosinophils % (Auto) 1 % (0-10); Hematocrit 36.5 % (41.0-53.0); Hemoglobin 11.7 g/dL (13.5-16.0); Immature Granulocytes Auto 0.41 Thou/mm3 (0.00-0.00); Lymphocytes # (Auto) 2.5 Thou/mm3 (1.0-4.8); Lymphocytes % (Auto) 27 % (10-50); Mean Corpuscular HGB Conc 32.1 g/dl (31.0-37.0); Mean Corpuscular Hemoglobin 29.5 pg (25.0-35.0); Mean Corpuscular Volume 92 fL (80-100); Monocytes # (Auto) 1.1 Thou/mm3 (0.0-0.8); Monocytes % (Auto) 12 % (0-12); Neutrophils # (Auto) 5.0 Thou/mm3 (1.8-7.7); Neutrophils % (Auto) 55 % (37-80); Nucleated Red Blood Cell # 0.00 Thou/mm3 (0.00-0.00); Nucleated Red Blood Cell % 0 /100 WBC (0); Platelet Count 284 Thou/mm3 (140-440); RDW Standard Deviation 44.1 fL (35.1-43.9); Red Blood Count 3.96 Miln/mm3 (4.50-5.90); White Blood Count 9.1 Thou/mm3 (3.8-10.6)
[2025-05-11 06:09] LABS: Alanine Aminotransferase 62 U/L (10-49); Albumin, Serum 3.5 gm/dL (3.5-5.0); Albumin/Globulin Ratio 1.0 (1.2-2.2); Alkaline Phosphatase 109 U/L (46-116); Anion Gap 8 (7-16); Aspartate Amino Transferase 37 U/L (0-34); BUN/Creatinine Ratio 14 Ratio (12-20); Bilirubin,Total 0.5 mg/dL (0.3-1.2); Blood Urea Nitrogen 11 mg/dL (9-23); Calcium 8.8 mg/dL (8.3-10.6); Calcium (Corrected) 9.2 mg/dL (8.5-10.1); Carbon Dioxide 26.0 mMol/L (20.0-31.0); Chloride 98 mMol/L (98-107); Creatinine (Component) 0.8 mg/dL (0.6-1.3); Estimated Creatinine Clearance 107.7 mL/min (>60); Globulin 3.4 gm/dL (2.3-3.5); Glucose 107 mg/dL (74-106); Osmolality,Calculated 263 (275-295); Potassium 3.9 mMol/L (3.4-5.1); Sodium 132 mMol/L (136-145); Total Protein 6.9 gm/dL (5.7-8.2); eGFR > 60 See Note
[2025-05-11] MEDS: cefTRIAXone/D5w 2gm 2 GM/50 ML BAG IV (09:05)
[2025-05-11] MEDS: SENNA/DOCUSATE SOD 1 TAB TABLET PO (10:38)
[2025-05-11] MEDS: MORPHINE SULF INJ 4 MG/ML VIAL 2 MG IVP ×3 (10:38→23:05)
--- NOTE | 2025-05-11 10:40 | ESPR_ITS ---
<Statement entered by Stormy Moore MD - 05/11/25 14:31> Patient examined at bedside. No events overnight. Pain has improved but still endorses in the left knee. He has status post I&D of left leg abscess and washout of septic knee. Vitals are stable, labs unremarkable. Oxycodone 5 mg 6hr PRN and IV morphine 2mg q6hr prn for pain. Complains of constipation. Start bowel regimen and monitor BM. Labs to completed now every 2 days. He will remain on IV ceftriaxone 2 g daily for MSSA septic arthritis and abscess. The patient's management plan was discussed with my attending physician Dr. Boyle. Stormy Moore, PGY-2 Documentation for date of: 05/11/25 Subjective Subjective Interval history: Patient examined at bedside. NAOE. Patient feeling so-so today, no major concerns. VSS. Labs were notable for an elevation of AST and ALT today. 37 and 62 respectively. These were down from 56 and 84. T.bili and ALP were WNL. He has been receiving hydrocodone/acetaminophen along with oxycodone/acetaminophen. These were both discontinued in favor of oxycodone 5 mg and IV morphine for severe pain. Cultures from the knee also grew MSSA. Mildly hyponatremic today, 132 from 134 yesterday. Osmolarity also low at 263. Daily labs switched to every 2 days. Sodium check tomorrow. Exam Vital Signs Temp Pulse Resp BP Pulse Ox O2 Del Method O2 Flow Rate 97.6 F 83 18 116/85 H 94 L Room Air 2 05/11/25 08:00 05/11/25 08:00 05/11/25 08:00 05/11/25 08:00 05/11/25 08:00 05/11/25 08:00 05/07/25 14:18 Narrative Exam General: Lao speaking, middle aged patient, no acute distress. HEENT: Mucosa moist. Pupils are equal. Cardiovascular: Regular rate and rhythm, extremities warm and well perfused. Respiratory: Lungs clear to auscultation bilaterally. Abdomen: Soft, nontender, not distended, multiple small scabs scattered on the abdomen without underlying fluctuance. Improving. Skin: Left knee has wound VAC in place with good seal. Right fourth finger swollen DIP. Musculoskeletal: Knee is edematous along with the lower leg. Pitting edema. Wound vac in place extending from over the anterior portion of the knee down to mid leg. Dressing is clean/dry/intact with minimal drainage in the tubing. Neuro: Alert and oriented x3. Intact sensation of the left lower extremity. Psych: Normal affect and mood Objective Labs 05/14/25 05:06 05/14/25 05:06 Labs: Laboratory Results - last 24 hr 05/08/25 05/11/25 05:00 04:57 WBC 9.1 RBC 3.96 L Hgb 11.7 L Hct 36.5 L MCV 92 MCH 29.5 MCHC 32.1 RDW Std Deviation 44.1 H Plt Count 284 Neut % (Auto) 55 Lymph % (Auto) 27 [place] % (Auto) 12 Eos % (Auto) 1 Baso % (Auto) 0 Neut # (Auto) 5.0 Lymph # (Auto) 2.5 [place] # (Auto) 1.1 H Eos # (Auto) 0.1 Baso # (Auto) 0.0 Immature Gran # (Auto) 0.41 H Absolute Nucleated RBC 0.00 Immature Gran % 5 H Nucleated RBC % 0 Sodium 132 L Potassium 3.9 Chloride 98 Carbon Dioxide 26.0 Anion Gap 8 BUN 11 Creatinine 0.8 Estim Creat Clear Calc 107.7 eGFR > 60 BUN/Creatinine Ratio 14 Glucose 107 H Calculated Osmolality 263 L Calcium 8.8 Corrected Calcium 9.2 Total Bilirubin 0.5 AST 37 H ALT 62 H Alkaline Phosphatase 109 Total Protein 6.9 Albumin 3.5 Globulin 3.4 Albumin/Globulin Ratio 1.0 L Coccidioides IgG Ab Negative Quality Measures Quality Measures VTE prophylaxis Assessment & Plan Assessment Current Active Medications: Generic Name Dose Route Start Last Admin Trade Name Eliezer PRN Reason Stop Dose Admin Acetaminophen 650 mg 05/06/25 22:07 Acetaminophen 325 Mg Tablet PO 06/05/25 22:06 Q6H PRN PAIN SCALE 1-3 (mild Acetaminophen 650 mg 05/06/25 22:07 05/06/25 23:16 Acetaminophen 325 Mg Tablet PO 06/05/25 22:06 650 mg Q6H PRN Administration Fever >100.4 Heparin Sodium (Porcine) 5,000 unit 05/07/25 06:00 05/11/25 05:23 Heparin Sod Inj 5000 Unit/Ml Vial SC 05/21/25 05:59 5,000 unit Q8HR JAROD Administration Ceftriaxone Sodium/Dextrose 2 gm in 50 mls @ 100 mls/hr 05/09/25 10:15 05/11/25 09:48 Rocephin/D5w 2gm IV 06/04/25 12:00 Infused QDAY JAROD Infusion Morphine Sulfate 2 mg 05/11/25 09:51 05/11/25 10:38 Morphine Sulf Inj 4 Mg/Ml Vial IVP 05/16/25 09:50 2 mg Q6HR PRN Administration PAIN SCALE 7-10 (Severe Ondansetron HCl 4 mg 05/06/25 22:07 Ondansetron Inj 2 Mg/Ml Inj 2 Ml IVP 06/05/25 22:06 Q6H PRN NAUSEA OR VOMITING Protocol Oxycodone HCl 5 mg 05/11/25 09:56 Oxycodone Hcl 5 Mg Ir Tab PO 05/16/25 09:55 Q6HR PRN PAIN SCALE 4-6 (Moderate Pantoprazole Sodium 40 mg 05/07/25 09:00 05/11/25 09:04 Pantoprazole Inj 40 Mg Vial IVP 06/06/25 08:59 40 mg QDAY JAROD Administration Sennosides 1 tab 05/11/25 10:15 05/11/25 10:38 Senna/Docusate Sod 1 Tab Tablet PO 06/10/25 10:14 1 tab QDAY JAROD Administration Protocol Plan This is a 45-year-old male with no significant PMHx presenting with LLE swelling and pain. Admitted for SSTI, found to have septic arthritis of the left knee joint and left leg abcess. Wound cultures with MSSA # MSSA Septic Arthritis of the Left Knee #Left leg abscess, MSSA s/p I&D Patient presenting with 6 days of progressive knee then leg swelling. Afebrile with stable vitals, but significant knee tenderness and pitting edema of the left leg. No pain out of proportion to exam. WBC 12.3. ESR 94. CT demonstrated a 6.8x2.3 fluid collection between the medial head of the gastrocnemius and the soleus. Dopplar US negative for DVT. Synovial fluid analysis of the knee joint was notable for 52,000 WBCs. Patient taken for washout of the knee and fasciotomy. Was found to have extensive purulent material in the gastroc fluid collection as well as in the knee. Cultures taken from both sites, MSSA in abscess With lack of trauma, this is likely from hematogenous spread from unclear source. Differential includes endocarditis versus disseminated gonococcal infection. There was concern for possible intrabdominal infection based on the lesions visualized on the abdomen. CT of Abd and pelvis was only notable for pulmonary nodules and localized thickening of the wall of the sigmoid colon. 6 month f/u CT of the nodules and F/U colonoscopy to rule out malignant process was recommended. Vanc and cefipime (05/06- 05/09) -s/p i and d on 05/[address] Schaffer -wound cultures with MSSA prater sensitive -cultures from left knee are positive with MSSA -Ceftriaxone 2gm IV (05/09- end date 06/04) (4 week abx course ) -TTE: Normal LV size and function. Estimated EF at 55-60 %. Normal diastolic function The RV size is mildy increased with normal systolic function. -f/u with IR for PICC line placement (monday) #Dysuria- (resolved) Complains of burning sensation with urination since 1 week ago with dark urine. Denies penile discharge or foul smelling urine. Possible UTI. Normal renal function. Continues to deny dysuria today. ? UA negative for evidence of infection. ? Antibiotic as above ? Urine cx NGTD #Hyponatremia Mildly hyponatremic today, 132 from 134 yesterday. Osmolarity also low at 263. He is getting IV ceftriaxone daily but no mIVF. Possibly dilutional. -Na recheck tomorrow. #Hypokalemia (resolved) Likely from poor intake. Resolved after repletion. Health Maintenance: DVT prophylaxis: Heparin Diet: Regular diet Fry: No Lines: PIV CODE STATUS: Full code Disposition: patient needs insurance for SNF placement. Continue IV abx until then. Patient's plan and care discussed with my attending, Dr. Boyle and my senior resident Dr Moore. Jake Thomas, DO PGY-1 ([facility] Resident) Attending Provider Attestation/Addendum 45-year-old male with no past medical history presented with knee pain found to have septic arthritis and left leg abscesses status post surgical intervention and wound VAC in place. Cultures positive for MSSA and currently on Rocephin per ID will require until 06/04/2025. Unable to discharge patient as patient is pending placement and home health arrangement for IV antibiotic therapy. I reviewed above note and agree with findings and plans. I have also personally examined the patient with medicine team and went over assessment and plan with medical team including architect intern and resident physician.
--- NOTE | 2025-05-11 12:51 | PC.SS ---
Rounding: Wound Vac and IV ABX, DC plan pending insurance establishment
[2025-05-11] MEDS: oxyCODONE HCL 5 MG IR TAB PO ×2 (14:36→21:04)
[2025-05-12] VITALS (9 sets, daily range): BP systolic 103–134; BP diastolic 69–79; PULSE 78–92; RESP 12–18; TEMP 36.1–37.2; O2SAT 94–97; BMI 11.0
[2025-05-12] MEDS: MELATONIN 3 MG TABLET 6 MG PO (01:08)
[2025-05-12] MEDS: oxyCODONE HCL 5 MG IR TAB PO ×2 (02:56→09:23)
[2025-05-12] MEDS: MORPHINE SULF INJ 4 MG/ML VIAL 2 MG IVP ×3 (05:17→17:48)
[2025-05-12] MEDS: HEPARIN SOD INJ 5000 UNIT/ML VIAL SC ×3 (05:21→21:32)
[2025-05-12 06:19] LABS: Sodium 131 mMol/L (136-145)
[2025-05-12] MEDS: PANTOPRAZOLE 40 MG TABLET PO (09:21)
[2025-05-12] MEDS: SENNA/DOCUSATE SOD 1 TAB TABLET PO (09:21)
[2025-05-12] MEDS: cefTRIAXone/D5w 2gm 2 GM/50 ML BAG IV (09:23)
[2025-05-12] MEDS: ACETAMINOPHEN 325 MG TABLET 650 MG PO ×2 (09:34→17:48)
--- NOTE | 2025-05-12 10:02 | ESPR_ITS ---
<Statement entered by Stormy Moore MD - 05/12/25 20:34> Note reviewed, I agree with most of its contents and agree with the patient's care as documented by Dr. Thomas. The patient's management plan was discussed with my attending physician Dr. Boyle. Stormy Moore, PGY-2 Documentation for date of: 05/12/25 Subjective Subjective Interval history: Patient examined at bedside. NAOE. Patient states he is ranging about 8/10 pain. At it's worst when his PRN pain medications are scheduled. Knee is still edematous but without erythema or purulent drainage from the wound. Repeat Na was 131 today. Gradual decline from 134 to 132 to 131. This is likely attributed to low sodium meals and retirement stay at the hospital. Added scheduled tylenol 650 mg q6 to his prn 5mg oxycodone and prn 2mg IV morphine Keep leg elevated. Daily saltines, chips, salty snacks during pre-rounds. Decrease frequency of lab draws to every two days. Exam Vital Signs Temp Pulse Resp BP Pulse Ox O2 Del Method O2 Flow Rate 97.5 F 81 16 121/75 97 Room Air 2 05/12/25 07:23 05/12/25 07:52 05/12/25 07:23 05/12/25 07:23 05/12/25 07:23 05/12/25 07:23 05/07/25 14:18 Narrative Exam General: Brazilian speaking, middle aged patient, no acute distress. HEENT: Mucosa moist. Pupils are equal. Cardiovascular: Regular rate and rhythm, extremities warm and well perfused. Respiratory: No tachypnea, labored speech, or stridor. Abdomen: Soft, nontender, not distended, multiple small scabs scattered on the abdomen without underlying fluctuance. Improving. Skin: Left knee has wound VAC in place with good seal. Right fourth finger swollen DIP. Musculoskeletal: Knee is edematous along with the lower leg. Pitting edema. Wound vac in place extending from over the anterior portion of the knee down to mid leg. Dressing is clean/dry/intact with minimal drainage in the tubing. Some pain with passive dorsiflexion of the left foot thats referred to the medial aspect of the leg where the wound extends. Neuro: Alert and oriented x3. Intact sensation of the left lower extremity. Able to wiggle toes without pain. Psych: Normal affect and mood Objective Labs 05/14/25 05:06 05/14/25 05:06 Labs: Laboratory Results - last 24 hr 05/12/25 05:25 Sodium 131 L Quality Measures Quality Measures VTE prophylaxis Assessment & Plan Assessment Current Active Medications: Generic Name Dose Route Start Last Admin Trade Name Freq PRN Reason Stop Dose Admin Acetaminophen 650 mg 05/12/25 07:45 05/12/25 09:34 Acetaminophen 325 Mg Tablet PO 05/19/25 07:44 650 mg Q6HR JAROD Administration Heparin Sodium (Porcine) 5,000 unit 05/07/25 06:00 05/12/25 05:21 Heparin Sod Inj 5000 Unit/Ml Vial SC 05/21/25 05:59 5,000 unit Q8HR JAROD Administration Ceftriaxone Sodium/Dextrose 2 gm in 50 mls @ 100 mls/hr 05/09/25 10:15 05/12/25 09:23 Rocephin/D5w 2gm IV 06/04/25 12:00 100 mls/hr QDAY JAROD Administration Ibuprofen 200 mg 05/12/25 12:00 Ibuprofen Tab 200 Mg Tablet PO 05/19/25 11:59 Q6HR JAROD Morphine Sulfate 2 mg 05/11/25 09:51 05/12/25 05:17 Morphine Sulf Inj 4 Mg/Ml Vial IVP 05/16/25 09:50 2 mg Q6HR PRN Administration PAIN SCALE 7-10 (Severe Ondansetron HCl 4 mg 05/06/25 22:07 Ondansetron Inj 2 Mg/Ml Inj 2 Ml IVP 06/05/25 22:06 Q6H PRN NAUSEA OR VOMITING Protocol Oxycodone HCl 5 mg 05/11/25 09:56 05/12/25 09:23 Oxycodone Hcl 5 Mg Ir Tab PO 05/16/25 09:55 5 mg Q6HR PRN Administration PAIN SCALE 4-6 (Moderate Pantoprazole Sodium 40 mg 05/12/25 09:00 05/12/25 09:21 Pantoprazole 40 Mg Tablet PO 06/11/25 08:59 40 mg QDAY JAROD Administration Sennosides 1 tab 05/11/25 10:15 05/12/25 09:21 Senna/Docusate Sod 1 Tab Tablet PO 06/10/25 10:14 1 tab QDAY JAROD Administration Protocol Plan This is a 45-year-old male with no significant PMHx presenting with LLE swelling and pain. Admitted for SSTI, found to have septic arthritis of the left knee joint and left leg abcess. Wound cultures with MSSA # MSSA Septic Arthritis of the Left Knee #Left leg abscess, MSSA s/p I&D Patient presenting with 6 days of progressive knee then leg swelling. Afebrile with stable vitals, but significant knee tenderness and pitting edema of the left leg. No pain out of proportion to exam. WBC 12.3. ESR 94. CT demonstrated a 6.8x2.3 fluid collection between the medial head of the gastrocnemius and the soleus. Dopplar US negative for DVT. Synovial fluid analysis of the knee joint was notable for 52,000 WBCs. Patient taken for washout of the knee and fasciotomy. Was found to have extensive purulent material in the gastroc fluid collection as well as in the knee. Cultures taken from both sites, MSSA in abscess With lack of trauma, this is likely from hematogenous spread from unclear source. Differential includes endocarditis versus disseminated gonococcal infection. There was concern for possible intrabdominal infection based on the lesions visualized on the abdomen. CT of Abd and pelvis was only notable for pulmonary nodules and localized thickening of the wall of the sigmoid colon. 6 month f/u CT of the nodules and F/U colonoscopy to rule out malignant process was recommended. Vanc and cefipime (05/06- 05/09) -s/p i and d on 05/[address] Schaffer -wound cultures with MSSA prater sensitive -cultures from left knee are positive with MSSA -Ceftriaxone 2gm IV (05/09- end date 06/04) (4 week abx course ) -TTE: Normal LV size and function. Estimated EF at 55-60 %. Normal diastolic function The RV size is mildy increased with normal systolic function. -f/u with IR for PICC line placement #Hyponatremia Mildly hyponatremic today, 132 from 134 yesterday. Osmolarity also low at 263. He is getting IV ceftriaxone daily but no mIVF. Most likely from low sodium intake from low salt hospital food combined with continuous churn buttermaker stay. -Daily salty snack during pre-rounds. #Pain Control Patient reporting 8/10 pain. Still some significant edema in the leg. Pain with passive movement but not excruciating. Compartment syndrome considered but less likely, as patient is not in acute distress. -Scheduled tylenol 650 mg q6 hrs -PRN oxycodone 5 mg q6 hrs. -PRN morphine 2 mg IV q 6hrs. #Dysuria- (resolved) Complains of burning sensation with urination since 1 week ago with dark urine. Denies penile discharge or foul smelling urine. Possible UTI. Normal renal function. Continues to deny dysuria today. ? UA negative for evidence of infection. ? Antibiotic as above ? Urine cx NGTD #Hypokalemia (resolved) Likely from poor intake. Resolved after repletion. Health Maintenance: DVT prophylaxis: Heparin Diet: Regular diet Fry: No Lines: PIV CODE STATUS: Full code Disposition: patient needs insurance for SNF placement. Continue IV abx until then. Patient's plan and care discussed with my attending, Dr. Boyle and my senior resident Dr Moore. Jake Thomas, DO PGY-1 ([facility] Resident) Attending Provider Attestation/Addendum 45-year-old male with no past medical history presented with knee pain found to have septic arthritis and left leg abscesses status post surgical intervention and wound VAC in place. Cultures positive for MSSA and currently on Rocephin per ID will require until 06/04/2025. Unable to discharge patient as patient is pending placement and home health arrangement for IV antibiotic therapy. I reviewed above note and agree with findings and plans. I have also personally examined the patient with medicine team and went over assessment and plan with medical team including geotechnical intern and resident physician.
--- NOTE | 2025-05-12 11:53 | XR_ITS ---
Examination: Ultrasound soft tissue extremity right fourth digit TECHNIQUE: Grayscale sonographic images soft tissue right fourth digit Date and time: May 12, 2025 1300 hours INDICATIONS: Redness swelling and pain involving the digit this week. FINDINGS: No soft tissue abscess depicted No foreign body IMPRESSION: No soft tissue abscess depicted
[2025-05-13] VITALS (10 sets, daily range): BP systolic 106–144; BP diastolic 64–82; PULSE 75–84; RESP 16–19; TEMP 36.2–36.6; O2SAT 96–98
[2025-05-13] MEDS: MORPHINE SULF INJ 4 MG/ML VIAL 2 MG IVP ×2 (00:03→10:00)
[2025-05-13] MEDS: ACETAMINOPHEN 325 MG TABLET 650 MG PO ×5 (01:08→23:30)
[2025-05-13] MEDS: HEPARIN SOD INJ 5000 UNIT/ML VIAL SC ×3 (06:12→21:15)
--- NOTE | 2025-05-13 08:14 | PC.SS ---
SS follow up note; SS attempted to contact Ana Luisa the financial counselor to check status on medical update. SS left voicemail with SS contact information.
[2025-05-13] MEDS: SENNA/DOCUSATE SOD 1 TAB TABLET PO (08:54)
[2025-05-13] MEDS: PANTOPRAZOLE 40 MG TABLET PO (08:54)
[2025-05-13] MEDS: cefTRIAXone/D5w 2gm 2 GM/50 ML BAG IV (08:55)
--- NOTE | 2025-05-13 09:54 | PC.SS ---
SS follow up note: SS attempted to contact Gauarng, the financial counselor however SS was unable to make contact. SS left voicemaile with SS contact number.
[2025-05-13] MEDS: oxyCODONE HCL 5 MG IR TAB PO ×2 (14:26→21:15)
--- NOTE | 2025-05-13 18:31 | ESPR_ITS ---
<Statement entered by Michelle Soria MD - 05/14/25 13:23> I discussed with and supervised the internal communications writer physician who took care of this patient. I personally saw and examined the patient and discussed the assessment and plan with the entire medicine team, including my attending Dr. Boyle, I agree with most of the assessment and plan as documented below Michelle Soria M.D. PGY-3 Disclaimer: Despite multiple revisions, due to the dictation software being used, the document bellow may not be free of grammatical errors including phonetic/typographic errors. However, this does not deter from our commitment to providing health care in the patient's best interest in mind. Documentation for date of: 05/13/25 Subjective Subjective Interval history: Patient examined at bedside, NAOE. Patient doing well today. Pain is better controlled with scheduled tylenol with PRN breakthrough oxycodone. Keep leg elevated. Daily saltines, chips, salty snacks during pre-rounds. Decrease frequency of lab draws to every two days. Review sodium tomorrow. Exam Vital Signs Temp Pulse Resp BP Pulse Ox O2 Del Method O2 Flow Rate 97.2 F 81 16 107/71 97 Room Air 2 05/13/25 16:00 05/13/25 16:30 05/13/25 16:00 05/13/25 16:00 05/13/25 16:00 05/13/25 16:00 05/07/25 14:18 Narrative Exam General: Armenian speaking, middle aged patient, no acute distress. HEENT: Mucosa moist. Pupils are equal. Cardiovascular: Regular rate and rhythm, extremities warm and well perfused. Respiratory: No tachypnea, labored speech, or stridor. Abdomen: Soft, nontender, not distended, multiple small scabs scattered on the abdomen without underlying fluctuance. Improving. Skin: Left knee has wound VAC in place with good seal. Right fourth finger swollen DIP. Musculoskeletal: Knee is edematous along with the lower leg. Pitting edema. Wound vac in place extending from over the anterior portion of the knee down to mid leg, dressign was exchanged and is now slightly smaller. Dressing is clean/dry/intact with minimal drainage in the tubing. Some pain with passive dorsiflexion of the left foot thats referred to the medial aspect of the leg where the wound extends. Neuro: Alert and oriented x3. Intact sensation of the left lower extremity. Able to wiggle toes without pain. Psych: Normal affect and mood Objective Labs 05/14/25 05:06 05/14/25 05:06 Labs: Laboratory Results - last 24 hr 05/07/25 08:00 Misc Test Result See Sep Rpt Quality Measures Quality Measures VTE prophylaxis Assessment & Plan Assessment Current Active Medications: Generic Name Dose Route Start Last Admin Trade Name Freq PRN Reason Stop Dose Admin Acetaminophen 650 mg 05/12/25 07:45 05/13/25 17:38 Acetaminophen 325 Mg Tablet PO 05/19/25 07:44 650 mg Q6HR JAROD Administration Heparin Sodium (Porcine) 5,000 unit 05/07/25 06:00 05/13/25 14:27 Heparin Sod Inj 5000 Unit/Ml Vial SC 05/21/25 05:59 5,000 unit Q8HR JAROD Administration Ceftriaxone Sodium/Dextrose 2 gm in 50 mls @ 100 mls/hr 05/09/25 10:15 05/13/25 08:55 Rocephin/D5w 2gm IV 06/04/25 12:00 100 mls/hr QDAY JAROD Administration Morphine Sulfate 2 mg 05/11/25 09:51 05/13/25 10:00 Morphine Sulf Inj 4 Mg/Ml Vial IVP 05/16/25 09:50 2 mg Q6HR PRN Administration PAIN SCALE 7-10 (Severe Ondansetron HCl 4 mg 05/06/25 22:07 Ondansetron Inj 2 Mg/Ml Inj 2 Ml IVP 06/05/25 22:06 Q6H PRN NAUSEA OR VOMITING Protocol Oxycodone HCl 5 mg 05/11/25 09:56 05/13/25 14:26 Oxycodone Hcl 5 Mg Ir Tab PO 05/16/25 09:55 5 mg Q6HR PRN Administration PAIN SCALE 4-6 (Moderate Pantoprazole Sodium 40 mg 05/12/25 09:00 05/13/25 08:54 Pantoprazole 40 Mg Tablet PO 06/11/25 08:59 40 mg QDAY JAROD Administration Sennosides 1 tab 05/11/25 10:15 05/13/25 08:54 Senna/Docusate Sod 1 Tab Tablet PO 06/10/25 10:14 1 tab QDAY JAROD Administration Protocol Plan This is a 45-year-old male with no significant PMHx presenting with LLE swelling and pain. Admitted for SSTI, found to have septic arthritis of the left knee joint and left leg abcess. Wound cultures with MSSA # MSSA Septic Arthritis of the Left Knee #Left leg abscess, MSSA s/p I&D Patient presenting with 6 days of progressive knee then leg swelling. Afebrile with stable vitals, but significant knee tenderness and pitting edema of the left leg. No pain out of proportion to exam. WBC 12.3. ESR 94. CT demonstrated a 6.8x2.3 fluid collection between the medial head of the gastrocnemius and the soleus. Dopplar US negative for DVT. Synovial fluid analysis of the knee joint was notable for 52,000 WBCs. Patient taken for washout of the knee and fasciotomy. Was found to have extensive purulent material in the gastroc fluid collection as well as in the knee. Cultures taken from both sites, MSSA in abscess With lack of trauma, this is likely from hematogenous spread from unclear source. Differential includes endocarditis versus disseminated gonococcal infection. There was concern for possible intrabdominal infection based on the lesions visualized on the abdomen. CT of Abd and pelvis was only notable for pulmonary nodules and localized thickening of the wall of the sigmoid colon. 6 month f/u CT of the nodules and F/U colonoscopy to rule out malignant process was recommended. Vanc and cefipime (05/06- 05/09) -s/p i and d on 05/[address] Schaffer -wound cultures with MSSA prater sensitive -cultures from left knee are positive with MSSA -Ceftriaxone 2gm IV (05/09- end date 06/04) (4 week abx course ) -TTE: Normal LV size and function. Estimated EF at 55-60 %. Normal diastolic function The RV size is mildy increased with normal systolic function. -f/u with IR for PICC line placement #Hyponatremia Mildly hyponatremic today, 132 from 134 yesterday. Osmolarity also low at 263. He is getting IV ceftriaxone daily but no mIVF. Most likely from low sodium intake from low salt hospital food combined with buttermaker stay. -Daily salty snack during pre-rounds. #Pain Control Patient reporting 8/10 pain. Still some significant edema in the leg. Pain with passive movement but not excruciating. Compartment syndrome considered but less likely, as patient is not in acute distress. -Scheduled tylenol 650 mg q6 hrs -PRN oxycodone 5 mg q6 hrs. -PRN morphine 2 mg IV q 6hrs. #Dysuria- (resolved) Complains of burning sensation with urination since 1 week ago with dark urine. Denies penile discharge or foul smelling urine. Possible UTI. Normal renal function. Continues to deny dysuria today. ? UA negative for evidence of infection. ? Antibiotic as above ? Urine cx NGTD #Hypokalemia (resolved) Likely from poor intake. Resolved after repletion. Health Maintenance: DVT prophylaxis: Heparin Diet: Regular diet + salty chips Fry: No Lines: PIV CODE STATUS: Full code Disposition: patient needs insurance for SNF placement. Continue IV abx until then. Patient's plan and care discussed with my attending, Dr. Boyle and my senior resident Dr Soria. Jake Thomas, DO PGY-1 ([facility] Resident) Attending Provider Attestation/Addendum 45-year-old male with no past medical history presented with knee pain found to have septic arthritis and left leg abscesses status post surgical intervention and wound VAC in place. Cultures positive for MSSA and currently on Rocephin per ID will require until 06/04/2025. Unable to discharge patient as patient is pending placement and home health arrangement for IV antibiotic therapy. I reviewed above note and agree with findings and plans. I have also personally examined the patient with medicine team and went over assessment and plan with medical team including internal communications writer and resident physician.
[2025-05-14] VITALS: BP 110/66; PULSE 77; PULSE 80; RESP 19; TEMP 36.1; O2SAT 95
[2025-05-14] MEDS: oxyCODONE HCL 5 MG IR TAB PO ×3 (03:49→20:28)
[2025-05-14 04:00] VITALS: BP 105/72; PULSE 74; PULSE 80; RESP 16; TEMP 36.1; O2SAT 98
[2025-05-14] MEDS: ACETAMINOPHEN 325 MG TABLET 650 MG PO ×4 (05:24→23:56)
[2025-05-14] MEDS: HEPARIN SOD INJ 5000 UNIT/ML VIAL SC ×3 (05:25→22:04)
[2025-05-14 05:52] LABS: Basophils # (Auto) 0.0 Thou/mm3 (0.0-0.2); Basophils % (Auto) 1 % (0-2.5); Eosinophils # (Auto) 0.1 Thou/mm3 (0.0-0.5); Eosinophils % (Auto) 2 % (0-10); Hematocrit 32.2 % (41.0-53.0); Hemoglobin 10.4 g/dL (13.5-16.0); Immature Granulocytes Auto 0.18 Thou/mm3 (0.00-0.00); Lymphocytes # (Auto) 1.8 Thou/mm3 (1.0-4.8); Lymphocytes % (Auto) 29 % (10-50); Mean Corpuscular HGB Conc 32.3 g/dl (31.0-37.0); Mean Corpuscular Hemoglobin 29.6 pg (25.0-35.0); Mean Corpuscular Volume 92 fL (80-100); Monocytes # (Auto) 0.8 Thou/mm3 (0.0-0.8); Monocytes % (Auto) 13 % (0-12); Neutrophils # (Auto) 3.3 Thou/mm3 (1.8-7.7); Neutrophils % (Auto) 53 % (37-80); Nucleated Red Blood Cell # 0.00 Thou/mm3 (0.00-0.00); Nucleated Red Blood Cell % 0 /100 WBC (0); Platelet Count 360 Thou/mm3 (140-440); RDW Standard Deviation 44.7 fL (35.1-43.9); Red Blood Count 3.51 Miln/mm3 (4.50-5.90); White Blood Count 6.3 Thou/mm3 (3.8-10.6)
[2025-05-14 08:00] VITALS: BP 111/78; PULSE 72; PULSE 85; RESP 16; TEMP 36.2; O2SAT 97
[2025-05-14] MEDS: PANTOPRAZOLE 40 MG TABLET PO (08:22)
[2025-05-14] MEDS: cefTRIAXone/D5w 2gm 2 GM/50 ML BAG IV (08:22)
[2025-05-14] MEDS: SENNA/DOCUSATE SOD 1 TAB TABLET PO (08:22)
--- NOTE | 2025-05-14 09:10 | PC.SS ---
Addendum entered by Norma Barrett 05/14/25 11:52: SS follow up note; SS was contacted by Financial counselor Marissa informing SS that patient is now pending MCL and the MCL ID number is pending. Original Note: SS follow up note; SS received an email from Ana Luisa the Financial counselor informing SS that patient's medical was pending at the time and informed SS to allow time for it to process. SS will stand by for further needs.
[2025-05-14 10:09] LABS: Alanine Aminotransferase 23 U/L (10-49); Albumin, Serum 3.0 gm/dL (3.5-5.0); Albumin/Globulin Ratio 1.0 (1.2-2.2); Alkaline Phosphatase 77 U/L (46-116); Anion Gap 8 (7-16); Aspartate Amino Transferase 18 U/L (0-34); BUN/Creatinine Ratio 16 Ratio (12-20); Bilirubin,Total 0.3 mg/dL (0.3-1.2); Blood Urea Nitrogen 11 mg/dL (9-23); Calcium 8.5 mg/dL (8.3-10.6); Calcium (Corrected) 9.3 mg/dL (8.5-10.1); Carbon Dioxide 26.5 mMol/L (20.0-31.0); Chloride 103 mMol/L (98-107); Creatinine (Component) 0.7 mg/dL (0.6-1.3); Estimated Creatinine Clearance 123.0 mL/min (>60); Globulin 3.0 gm/dL (2.3-3.5); Glucose 107 mg/dL (74-106); Osmolality,Calculated 273 (275-295); Potassium 4.2 mMol/L (3.4-5.1); Sodium 137 mMol/L (136-145); Total Protein 6.0 gm/dL (5.7-8.2); eGFR > 60 See Note
[2025-05-14 10:18] VITALS: BMI 27.3
[2025-05-14 12:00] VITALS: BP 133/82; PULSE 77; PULSE 80; RESP 18; TEMP 36.4; O2SAT 94
--- NOTE | 2025-05-14 13:27 | ESPR_ITS ---
Documentation for date of: 05/14/25 Subjective Subjective Interval history: Patient examined at bedside, no events overnight. Has no major complaints and has been able to work some more with physical therapy. Left lower extremity edema is improving. Wound VAC in place with no evidence of bleeding. Sodium improving to 137. Continue IV ceftriaxone in setting of MSSA abscess of left leg and left knee septic arthritis. Pain is better controlled with scheduled tylenol with PRN breakthrough oxycodone. Exam Vital Signs Temp Pulse Resp BP Pulse Ox O2 Del Method O2 Flow Rate 97.1 F 80 16 111/78 97 Room Air 2 05/14/25 08:00 05/14/25 12:00 05/14/25 08:00 05/14/25 08:00 05/14/25 08:00 05/14/25 08:00 05/07/25 14:18 Narrative Exam General: Urdu speaking, middle aged patient, no acute distress. HEENT: Mucosa moist. Pupils are equal. Cardiovascular: Regular rate and rhythm, extremities warm and well perfused. Respiratory: No tachypnea, labored speech, or stridor. Abdomen: Soft, nontender, not distended, multiple small scabs scattered on the abdomen without underlying fluctuance. Improving. Skin: Left knee has wound VAC in place with good seal. Right fourth finger swollen DIP. Musculoskeletal: Knee is edematous along with the lower leg. Pitting edema. Wound vac in place extending from over the anterior portion of the knee down to mid leg, Dressing is clean/dry/intact with minimal drainage in the tubing. Neuro: Alert and oriented x3. Intact sensation of the left lower extremity. Able to wiggle toes without pain. Psych: Normal affect and mood Objective Labs 05/14/25 05:06 05/14/25 05:06 Labs: Laboratory Results - last 24 hr 05/14/25 05:06 WBC 6.3 RBC 3.51 L Hgb 10.4 L Hct 32.2 L MCV 92 MCH 29.6 MCHC 32.3 RDW Std Deviation 44.7 H Plt Count 360 D Neut % (Auto) 53 Lymph % (Auto) 29 [place] % (Auto) 13 H Eos % (Auto) 2 Baso % (Auto) 1 Neut # (Auto) 3.3 Lymph # (Auto) 1.8 [place] # (Auto) 0.8 Eos # (Auto) 0.1 Baso # (Auto) 0.0 Immature Gran # (Auto) 0.18 H Absolute Nucleated RBC 0.00 Immature Gran % 3 H Nucleated RBC % 0 Sodium 137 Potassium 4.2 Chloride 103 Carbon Dioxide 26.5 Anion Gap 8 BUN 11 Creatinine 0.7 Estim Creat Clear Calc 123.0 eGFR > 60 BUN/Creatinine Ratio 16 Glucose 107 H Calculated Osmolality 273 L Calcium 8.5 Corrected Calcium 9.3 Total Bilirubin 0.3 AST 18 ALT 23 Alkaline Phosphatase 77 Total Protein 6.0 Albumin 3.0 L Globulin 3.0 Albumin/Globulin Ratio 1.0 L Quality Measures Quality Measures VTE prophylaxis Assessment & Plan Assessment Current Active Medications: Generic Name Dose Route Start Last Admin Trade Name Freq PRN Reason Stop Dose Admin Acetaminophen 650 mg 05/12/25 07:45 05/14/25 12:02 Acetaminophen 325 Mg Tablet PO 05/19/25 07:44 650 mg Q6HR JAROD Administration Heparin Sodium (Porcine) 5,000 unit 05/07/25 06:00 05/14/25 05:25 Heparin Sod Inj 5000 Unit/Ml Vial SC 05/21/25 05:59 5,000 unit Q8HR JAROD Administration Ceftriaxone Sodium/Dextrose 2 gm in 50 mls @ 100 mls/hr 05/09/25 10:15 05/14/25 08:22 Rocephin/D5w 2gm IV 06/04/25 12:00 100 mls/hr QDAY JAROD Administration Morphine Sulfate 2 mg 05/11/25 09:51 05/13/25 10:00 Morphine Sulf Inj 4 Mg/Ml Vial IVP 05/16/25 09:50 2 mg Q6HR PRN Administration PAIN SCALE 7-10 (Severe Ondansetron HCl 4 mg 05/06/25 22:07 Ondansetron Inj 2 Mg/Ml Inj 2 Ml IVP 06/05/25 22:06 Q6H PRN NAUSEA OR VOMITING Protocol Oxycodone HCl 5 mg 05/11/25 09:56 05/14/25 09:59 Oxycodone Hcl 5 Mg Ir Tab PO 05/16/25 09:55 5 mg Q6HR PRN Administration PAIN SCALE 4-6 (Moderate Pantoprazole Sodium 40 mg 05/12/25 09:00 05/14/25 08:22 Pantoprazole 40 Mg Tablet PO 06/11/25 08:59 40 mg QDAY JAROD Administration Sennosides 1 tab 05/11/25 10:15 05/14/25 08:22 Senna/Docusate Sod 1 Tab Tablet PO 06/10/25 10:14 1 tab QDAY JAROD Administration Protocol Plan This is a 45-year-old male with no significant PMHx presenting with LLE swelling and pain. Admitted for SSTI, found to have septic arthritis of the left knee joint and left leg abcess. Wound cultures with MSSA # MSSA Septic Arthritis of the Left Knee #Left leg abscess, MSSA s/p I&D Patient presenting with 6 days of progressive knee then leg swelling. Afebrile with stable vitals, but significant knee tenderness and pitting edema of the left leg. No pain out of proportion to exam. WBC 12.3. ESR 94. CT demonstrated a 6.8x2.3 fluid collection between the medial head of the gastrocnemius and the soleus. Dopplar US negative for DVT. Synovial fluid analysis of the knee joint was notable for 52,000 WBCs. Patient taken for washout of the knee and fasciotomy. Was found to have extensive purulent material in the gastroc fluid collection as well as in the knee. Cultures taken from both sites, MSSA in abscess With lack of trauma, this is likely from hematogenous spread from unclear source. Differential includes endocarditis versus disseminated gonococcal infection. There was concern for possible intrabdominal infection based on the lesions visualized on the abdomen. CT of Abd and pelvis was only notable for pulmonary nodules and localized thickening of the wall of the sigmoid colon. 6 month f/u CT of the nodules and F/U colonoscopy to rule out malignant process was recommended. Vanc and cefipime (05/06- 05/09) -s/p i and d on 05/[address] Schaffer -wound cultures with MSSA prater sensitive -cultures from left knee are positive with MSSA -Ceftriaxone 2gm IV (05/09- end date 06/04) (4 week abx course ) -TTE: Normal LV size and function. Estimated EF at 55-60 %. Normal diastolic function The RV size is mildy increased with normal systolic function. -f/u with IR for PICC line placement #Hyponatremia-resolved Mildly hyponatremic today, 132 from 134 yesterday. Osmolarity also low at 263. He is getting IV ceftriaxone daily but no mIVF. Most likely from low sodium intake from low salt hospital food combined with ocean transportation intermediary stay. -Daily salty snack during pre-rounds. #Pain Control Patient reporting 8/10 pain. Still some significant edema in the leg. Pain with passive movement but not excruciating. Compartment syndrome considered but less likely, as patient is not in acute distress. -Scheduled tylenol 650 mg q6 hrs -PRN oxycodone 5 mg q6 hrs. -PRN morphine 2 mg IV q 6hrs. #Dysuria- (resolved) Complains of burning sensation with urination since 1 week ago with dark urine. Denies penile discharge or foul smelling urine. Possible UTI. Normal renal function. Continues to deny dysuria today. ? UA negative for evidence of infection. ? Antibiotic as above ? Urine cx NGTD #Hypokalemia (resolved) Likely from poor intake. Resolved after repletion. Health Maintenance: DVT prophylaxis: Heparin Diet: Regular diet + salty chips Fry: No Lines: PIV CODE STATUS: Full code Disposition: patient needs insurance for SNF placement. Continue IV abx until then. Patient's plan and care discussed with my attending, Dr. Boyle. Stormy Moore, PGY2 Attending Provider Attestation/Addendum 45-year-old male with no past medical history presented with knee pain found to have septic arthritis and left leg abscesses status post surgical intervention and wound VAC in place. Cultures positive for MSSA and currently on Rocephin per ID will require until 06/04/2025. Unable to discharge patient as patient is pending placement and home health arrangement for IV antibiotic therapy. I reviewed above note and agree with findings and plans. I have also personally examined the patient with medicine team and went over assessment and plan with medical team including architecture intern and resident physician.
[2025-05-14] MEDS: MORPHINE SULF INJ 4 MG/ML VIAL 2 MG IVP ×2 (15:12→22:35)
[2025-05-14 16:00] VITALS: BP 126/74; PULSE 75; PULSE 88; RESP 16; TEMP 36.4; O2SAT 96
[2025-05-14 20:00] VITALS: BP 120/74; PULSE 78; PULSE 88; RESP 17; TEMP 37.2; O2SAT 99
[2025-05-15] VITALS: BP 118/75; PULSE 78; PULSE 85; RESP 16; TEMP 36.7; O2SAT 98
[2025-05-15 04:00] VITALS: BP 128/86; PULSE 73; PULSE 78; RESP 16; TEMP 36.2; O2SAT 99
[2025-05-15] MEDS: oxyCODONE HCL 5 MG IR TAB PO ×3 (04:30→20:01)
[2025-05-15] MEDS: ACETAMINOPHEN 325 MG TABLET 650 MG PO ×4 (05:48→23:58)
[2025-05-15] MEDS: HEPARIN SOD INJ 5000 UNIT/ML VIAL SC ×2 (05:49→14:23)
[2025-05-15 08:00] VITALS: BP 121/68; PULSE 70; RESP 17; TEMP 36.1; O2SAT 98
[2025-05-15] MEDS: cefTRIAXone/D5w 2gm 2 GM/50 ML BAG IV (09:33)
[2025-05-15] MEDS: SENNA/DOCUSATE SOD 1 TAB TABLET PO (09:33)
[2025-05-15] MEDS: PANTOPRAZOLE 40 MG TABLET PO (09:33)
[2025-05-15] MEDS: MORPHINE SULF INJ 4 MG/ML VIAL 2 MG IVP (09:42)
--- NOTE | 2025-05-15 10:53 | ESPR_ITS ---
<Statement entered by Maren Boyle MD - 05/23/25 14:39> I reviewed above note and agree with findings and plans. I have also personally examined the patient with medicine team and went over assessment and plan with medical team including business analytics intern and resident physician. <Statement entered by Michelle Soria MD - 05/16/25 14:16> Patient seen and examined at bedside. Patient presented with left lower extremity swelling and pain and admitted for left septic arthritis and left leg abscess. Patient is currently on IV ceftriaxone 2 g until 06/04 for a total of 4-week course. Patient had an echocardiogram which was normal LV size and function with ejection fraction 55 to 60%. Will order PICC line for patient to receive ceftriaxone with home with home health. Patient CT of the abdomen pelvis was only notable for pulmonary nodules and localized thickening of the wall of the sigmoid colon. 6-month follow-up of CT of nodules is recommended along with follow-up colonoscopy to rule out any malignant processes. I discussed with and supervised the business analytics intern physician who took care of this patient. I personally saw and examined the patient and discussed the assessment and plan with the entire medicine team, including my attending Dr. Boyle, I agree with most of the assessment and plan as documented below Michelle Soria M.D. PGY-3 Documentation for date of: 05/15/25 Subjective Subjective Interval history: Patient examined at bedside. NAOE. Patient doing well today. Review of labs from the prior day demonstrated improved Na of 137 from 131 a few days ago. Pain is getting better, as is the swelling. Labs ordered for every other day. PT ordered for the patient. PICC line ordered. Continuing IV ceftriaxone until 06/04 Exam Vital Signs Temp Pulse Resp BP Pulse Ox O2 Del Method O2 Flow Rate 96.9 F 70 17 121/68 98 Room Air 2 05/15/25 08:00 05/15/25 08:00 05/15/25 08:00 05/15/25 08:00 05/15/25 08:00 05/15/25 08:00 05/07/25 14:18 Narrative Exam General: Occitan speaking, middle aged patient, no acute distress. HEENT: Mucosa moist. Pupils are equal. Cardiovascular: Regular rate and rhythm, extremities warm and well perfused. Respiratory: No tachypnea, labored speech, or stridor. Abdomen: Soft, nontender, not distended, multiple small scabs scattered on the abdomen without underlying fluctuance. Improving. Skin: Left knee has wound VAC in place with good seal. Right fourth finger swollen DIP. Musculoskeletal: Knee is edematous along with the lower leg but improving. Pitting edema. Wound vac in place extending from over the anterior portion of the knee down to mid leg, dressign was exchanged and is now slightly smaller. Dressing is clean/dry/intact with minimal drainage in the tubing. Some pain with passive dorsiflexion of the left foot thats referred to the popliteal region. Neuro: Alert and oriented x3. Intact sensation of the left lower extremity. Able to wiggle toes without pain. Psych: Normal affect and mood Objective Labs 05/14/25 05:06 05/14/25 05:06 Quality Measures Quality Measures VTE prophylaxis Assessment & Plan Assessment Current Active Medications: Generic Name Dose Route Start Last Admin Trade Name Freq PRN Reason Stop Dose Admin Acetaminophen 650 mg 05/12/25 07:45 05/15/25 05:48 Acetaminophen 325 Mg Tablet PO 05/19/25 07:44 650 mg Q6HR JAROD Administration Heparin Sodium (Porcine) 5,000 unit 05/07/25 06:00 05/15/25 05:49 Heparin Sod Inj 5000 Unit/Ml Vial SC 05/21/25 05:59 5,000 unit Q8HR JAROD Administration Ceftriaxone Sodium/Dextrose 2 gm in 50 mls @ 100 mls/hr 05/09/25 10:15 05/15/25 09:33 Rocephin/D5w 2gm IV 06/04/25 12:00 100 mls/hr QDAY JAROD Administration Morphine Sulfate 2 mg 05/11/25 09:51 05/15/25 09:42 Morphine Sulf Inj 4 Mg/Ml Vial IVP 05/16/25 09:50 2 mg Q6HR PRN Administration PAIN SCALE 7-10 (Severe Ondansetron HCl 4 mg 05/06/25 22:07 Ondansetron Inj 2 Mg/Ml Inj 2 Ml IVP 06/05/25 22:06 Q6H PRN NAUSEA OR VOMITING Protocol Oxycodone HCl 5 mg 05/11/25 09:56 05/15/25 04:30 Oxycodone Hcl 5 Mg Ir Tab PO 05/16/25 09:55 5 mg Q6HR PRN Administration PAIN SCALE 4-6 (Moderate Pantoprazole Sodium 40 mg 05/12/25 09:00 05/15/25 09:33 Pantoprazole 40 Mg Tablet PO 06/11/25 08:59 40 mg QDAY JAROD Administration Sennosides 1 tab 05/11/25 10:15 05/15/25 09:33 Senna/Docusate Sod 1 Tab Tablet PO 06/10/25 10:14 1 tab QDAY JAROD Administration Protocol Plan This is a 45-year-old male with no significant PMHx presenting with LLE swelling and pain. Admitted for SSTI, found to have septic arthritis of the left knee joint and left leg abcess. Wound cultures with MSSA # MSSA Septic Arthritis of the Left Knee #Left leg abscess, MSSA s/p I&D Patient presenting with 6 days of progressive knee then leg swelling. Afebrile with stable vitals, but significant knee tenderness and pitting edema of the left leg. No pain out of proportion to exam. WBC 12.3. ESR 94. CT demonstrated a 6.8x2.3 fluid collection between the medial head of the gastrocnemius and the soleus. Dopplar US negative for DVT. Synovial fluid analysis of the knee joint was notable for 52,000 WBCs. Patient taken for washout of the knee and fasciotomy. Was found to have extensive purulent material in the gastroc fluid collection as well as in the knee. Cultures taken from both sites, MSSA in abscess With lack of trauma, this is likely from hematogenous spread from unclear source. Differential includes endocarditis versus disseminated gonococcal infection. There was concern for possible intrabdominal infection based on the lesions visualized on the abdomen. CT of Abd and pelvis was only notable for pulmonary nodules and localized thickening of the wall of the sigmoid colon. 6 month f/u CT of the nodules and F/U colonoscopy to rule out malignant process was recommended. Vanc and cefipime (05/06- 05/09) -s/p i and d on 05/[address] Schaffer -wound cultures with MSSA prater sensitive -cultures from left knee are positive with MSSA -Ceftriaxone 2gm IV (05/09- end date 06/04) (4 week abx course ) -TTE: Normal LV size and function. Estimated EF at 55-60 %. Normal diastolic function The RV size is mildy increased with normal systolic function. -PICC Line Ordered #Hyponatremia-resolved Mildly hyponatremic today, 132 from 134 yesterday. Osmolarity also low at 263. He is getting IV ceftriaxone daily but no mIVF. Most likely from low sodium intake from low salt hospital food combined with intermediate stay. Now 137 after daily salty snack. -Daily salty snack during pre-rounds. #Pain Control Patient reporting 8/10 pain. Still some significant edema in the leg. Pain with passive movement but not excruciating. Compartment syndrome considered but less likely, as patient is not in acute distress. -Scheduled tylenol 650 mg q6 hrs -PRN oxycodone 5 mg q6 hrs. -PRN morphine 2 mg IV q 6hrs. #Dysuria- (resolved) Complains of burning sensation with urination since 1 week ago with dark urine. Denies penile discharge or foul smelling urine. Possible UTI. Normal renal function. Continues to deny dysuria today. ? UA negative for evidence of infection. ? Antibiotic as above ? Urine cx NGTD #Hypokalemia (resolved) Likely from poor intake. Resolved after repletion. Health Maintenance: DVT prophylaxis: Heparin Diet: Regular diet + salty chips Fry: No Lines: PIV CODE STATUS: Full code Disposition: patient needs insurance for SNF placement. Continue IV abx until then. Patient's plan and care discussed with my attending, Dr Boyle and my senior Dr. Soria. Jake Thomas, PGY-1 ([facility] Resident) Attending Provider Attestation/Addendum 45-year-old male with no past medical history presented with knee pain found to have septic arthritis and left leg abscesses status post surgical intervention and wound VAC in place. Cultures positive for MSSA and currently on Rocephin per ID will require until 06/04/2025. Unable to discharge patient as patient is pending placement and home health arrangement for IV antibiotic therapy. I reviewed above note and agree with findings and plans. I have also personally examined the patient with medicine team and went over assessment and plan with medical team including business analytics intern and resident physician.
--- NOTE | 2025-05-15 11:36 | PC.SS ---
SS sent email to [facility] to inquire ion HH for IV ABX until 06/04 and wound care. Pending response.
[2025-05-15 11:57] VITALS: BMI 13.0
[2025-05-15 12:00] VITALS: BP 123/69; PULSE 79; RESP 18; TEMP 36.1; O2SAT 99
--- NOTE | 2025-05-15 12:23 | PC.CC ---
Addendum entered by Tasneem Ford RN 05/15/25 16:10: informed Dr. Perkins about the hh order for iv abx and wound care and PICC line order. He stated he will enter orders. Original Note: received email inquiring for HH services for IV abx and wound vac. Return email asking for pt's insurance info needs to be updated on facesheet, need hh orders for IV abx with name, dose, route, frequency, and duration and wound vac and it's settings. Pt will need a PICC line for IV abx. No order for PICC line has been placed yet.
[2025-05-15 16:00] VITALS: BP 111/67; PULSE 70; RESP 17; TEMP 36.1; O2SAT 99
[2025-05-15 20:00] VITALS: BP 127/69; PULSE 84; PULSE 86; RESP 20; TEMP 36.6; O2SAT 98
[2025-05-16] VITALS (12 sets, daily range): BP systolic 99–126; BP diastolic 61–77; PULSE 64–86; RESP 16–21; TEMP 36.2–37.2; O2SAT 96–100
[2025-05-16] MEDS: MORPHINE SULF INJ 4 MG/ML VIAL 2 MG IVP (03:45)
[2025-05-16] MEDS: ACETAMINOPHEN 325 MG TABLET 650 MG PO ×2 (06:06→11:50)
[2025-05-16 06:33] LABS: INR 1.1 (0.9-1.3); Prothrombin Time 11.8 Seconds (9.0-12.2)
[2025-05-16 06:35] LABS: Alanine Aminotransferase 20 U/L (10-49); Albumin, Serum 3.5 gm/dL (3.5-5.0); Albumin/Globulin Ratio 1.0 (1.2-2.2); Alkaline Phosphatase 73 U/L (46-116); Anion Gap 9 (7-16); Aspartate Amino Transferase 17 U/L (0-34); BUN/Creatinine Ratio 14 Ratio (12-20); Bilirubin,Total 0.3 mg/dL (0.3-1.2); Blood Urea Nitrogen 11 mg/dL (9-23); Calcium 9.1 mg/dL (8.3-10.6); Calcium (Corrected) 9.5 mg/dL (8.5-10.1); Carbon Dioxide 27.1 mMol/L (20.0-31.0); Chloride 102 mMol/L (98-107); Creatinine (Component) 0.8 mg/dL (0.6-1.3); Estimated Creatinine Clearance 107.7 mL/min (>60); Globulin 3.6 gm/dL (2.3-3.5); Glucose 113 mg/dL (74-106); Magnesium 2.1 mg/dL (1.6-2.6); Osmolality,Calculated 276 (275-295); Phosphorous 4.4 mg/dL (2.4-5.1); Potassium 4.1 mMol/L (3.4-5.1); Sodium 138 mMol/L (136-145); Total Protein 7.1 gm/dL (5.7-8.2); eGFR > 60 See Note
[2025-05-16 07:01] LABS: Basophils # (Auto) 0.0 Thou/mm3 (0.0-0.2); Basophils % (Auto) 0 % (0-2.5); Eosinophils # (Auto) 0.1 Thou/mm3 (0.0-0.5); Eosinophils % (Auto) 2 % (0-10); Hematocrit 33.2 % (41.0-53.0); Hemoglobin 10.5 g/dL (13.5-16.0); Immature Granulocytes Auto 0.12 Thou/mm3 (0.00-0.00); Lymphocytes # (Auto) 2.5 Thou/mm3 (1.0-4.8); Lymphocytes % (Auto) 35 % (10-50); Mean Corpuscular HGB Conc 31.6 g/dl (31.0-37.0); Mean Corpuscular Hemoglobin 28.5 pg (25.0-35.0); Mean Corpuscular Volume 90 fL (80-100); Monocytes # (Auto) 0.6 Thou/mm3 (0.0-0.8); Monocytes % (Auto) 9 % (0-12); Neutrophils # (Auto) 3.7 Thou/mm3 (1.8-7.7); Neutrophils % (Auto) 53 % (37-80); Nucleated Red Blood Cell # 0.00 Thou/mm3 (0.00-0.00); Nucleated Red Blood Cell % 0 /100 WBC (0); Platelet Count 498 Thou/mm3 (140-440); RDW Standard Deviation 43.5 fL (35.1-43.9); Red Blood Count 3.68 Miln/mm3 (4.50-5.90); White Blood Count 7.1 Thou/mm3 (3.8-10.6)
--- NOTE | 2025-05-16 07:45 | XR_ITS ---
Examination: Ultrasound-guided needle placement left basilic vein. Dual-lumen central line placement (PICC line). Fluoroscopy AP chest, portable, single view Exam date and time:May 16 thousand 25, 0936 hours INDICATIONS: Need for long-term intravenous antibiotic therapy A timeout was completed verifying correct patient, procedure, site, positioning Informed consent provided Technique: The patient's site was prepped and draped in sterile fashion. Maximum Sterile Barrier Technique used including cap, mask, sterile gown, sterile gloves, and sterile full body drape. If ultrasound technique used: sterile gel and sterile probe covers. Hand Hygiene performed using proper scrub, soap and water, or alcohol-based hand rub. Ultrasound site right portable apparatus utilized to confirm patency of the left basilic vein Utilizing ultrasonographic guidance successful 21-gauge needle puncture into the left basilic vein Ultrasound images recorded and stored. 5 cc 1% lidocaine administered for local anesthetic. Successful micropuncture with a 21-gauge needle is performed. 0.18 wire guide is then introduced into the SVC under fluoroscopic guidance. Dual-lumen catheter dilator is then introduced, followed by the catheter in the SVC and proper position under fluoroscopic guidance. Successful aspiration of blood and flushing with heparinized saline is then performed in the 2 venous limbs. The catheter sutured in place. Findings: Under fluoroscopy, the tip of the catheter is in good position in the vena cava. Portable chest x-ray, post line placement is ordered. Estimated blood loss 3 cc The patient tolerated the procedure well and was in stable and satisfactory condition at completion of the procedure Impression: Successful ultrasound-guided needle placement left basilic vein Successful placement of dual lumen central line, percutaneous Fluoroscopy 0.4 minute radiation dose 2.08 milligray. AP chest completion procedure demonstrates satisfactory position central line. May use central line.
[2025-05-16] MEDS: cefTRIAXone/D5w 2gm 2 GM/50 ML BAG IV (08:11)
--- NOTE | 2025-05-16 08:31 | PC.SS ---
Addendum entered by Isabella Rojas 05/16/25 12:07: SS spoke to Kylah with [facility] who were considering pt, SS sent over IV ABX and Wound care information. Per Kylah at this time they are not sure if they can accept due to DC plan post Acute Rehab. DC plan Home with HH. Original Note: SS follow up note; SS submitted inquiry through [employer] for Acute rehab.
--- NOTE | 2025-05-16 08:45 | PC.SS ---
SS asked Dr. Soria if HH orders can be put in for HH to be able to work on orders to see if HH will be an option. Pt will need wound Vac/ WC/ and IV ABX
--- NOTE | 2025-05-16 09:58 | PC.CM ---
Addendum entered by Brandon Courtney RN 05/16/25 11:10: 1105-Patient referred to [facility], [facility] 24-48 hrs after discharge, [facility] will supply IV antibiotics. Original Note: Received orders for for IV ABT and wound care per RN. Packet sent out via [employer], awaiting responses at this time.
--- NOTE | 2025-05-16 12:04 | PC.SS ---
Pt received PICCLINE, per [place] RNKenny can follow pt 24-48hrs post DC. Pt needs IV ABX everyday. Poss DC over weekend with [facility] for IV ABX and WC, pt no longer needs Wound VAc just wound care. Team to follow up with [place] RN.
--- NOTE | 2025-05-16 12:15 | ESPR_ITS ---
<Statement entered by Stormy Moore MD - 05/16/25 15:04> Patient examined at bedside, no events overnight. Has no major complaints and has been able to work some more with physical therapy. Left lower extremity edema is improving. Wound VAC in place with no evidence of bleeding. Sodium todya 138. Continue IV ceftriaxone in setting of MSSA abscess of left leg and left knee septic arthritis. Pain is controlled with scheduled tylenol with PRN breakthrough oxycodone. Plan for PICC line today and possible discharge home with home health. The patient's management plan was discussed with my attending physician Dr. Muller. Stormy Moore, PGY-2 Documentation for date of: 05/16/25 Subjective Subjective Interval history: Patient examined at bedside, NAOE. Feeling good today, minimal pain. Had his wound vac replaced with surgical dressing. PICC line placed today. Plan on DC today with outpatient ortho follow up. Exam Vital Signs Temp Pulse Resp BP Pulse Ox O2 Del Method O2 Flow Rate 97.2 F 78 18 126/75 98 Room Air 2 05/16/25 12:00 05/16/25 12:00 05/16/25 12:00 05/16/25 12:05/16/25 12:05/16/25 12:05/16/25 04:00 Narrative Exam General: Djiboutian speaking, middle aged patient, no acute distress. HEENT: Mucosa moist. Pupils are equal. Cardiovascular: Regular rate and rhythm, extremities warm and well perfused. Respiratory: No tachypnea, labored speech, or stridor. Abdomen: Soft, nontender, not distended, multiple small scabs scattered on the abdomen without underlying fluctuance. Improving. Skin: Left knee has wound VAC in place with good seal. Right fourth finger swollen DIP. Musculoskeletal: Knee is edematous along with the lower leg but improving. Pitting edema. Wound vac in place extending from over the anterior portion of the knee down to mid leg, dressign was exchanged and is now slightly smaller. Dressing is clean/dry/intact with minimal drainage in the tubing. Some pain with passive dorsiflexion of the left foot thats referred to the popliteal region. Neuro: Alert and oriented x3. Intact sensation of the left lower extremity. Able to wiggle toes without pain. Psych: Normal affect and mood Objective Labs 05/16/25 06:35 05/16/25 05:00 Labs: Laboratory Results - last 24 hr 05/16/25 05/16/25 05:00 06:35 WBC 7.1 RBC 3.68 L Hgb 10.5 L Hct 33.2 L MCV 90 MCH 28.5 MCHC 31.6 RDW Std Deviation 43.5 Plt Count 498 H D Neut % (Auto) 53 Lymph % (Auto) 35 [place] % (Auto) 9 Eos % (Auto) 2 Baso % (Auto) 0 Neut # (Auto) 3.7 Lymph # (Auto) 2.5 [place] # (Auto) 0.6 Eos # (Auto) 0.1 Baso # (Auto) 0.0 Immature Gran # (Auto) 0.12 H Absolute Nucleated RBC 0.00 Immature Gran % 2 H Nucleated RBC % 0 PT 11.8 INR 1.1 Sodium 138 Potassium 4.1 Chloride 102 Carbon Dioxide 27.1 Anion Gap 9 BUN 11 Creatinine 0.8 Estim Creat Clear Calc 107.7 eGFR > 60 BUN/Creatinine Ratio 14 Glucose 113 H Calculated Osmolality 276 Calcium 9.1 Corrected Calcium 9.5 Phosphorus 4.4 Magnesium 2.1 Total Bilirubin 0.3 AST 17 ALT 20 Alkaline Phosphatase 73 Total Protein 7.1 Albumin 3.5 D Globulin 3.6 H Albumin/Globulin Ratio 1.0 L Quality Measures Quality Measures VTE prophylaxis Assessment & Plan Assessment Current Active Medications: Generic Name Dose Route Start Last Admin Trade Name Eliezer PRN Reason Stop Dose Admin Acetaminophen 650 mg 05/12/25 07:45 05/16/25 11:50 Acetaminophen 325 Mg Tablet PO 05/19/25 07:44 650 mg Q6HR JAROD Administration Heparin Sodium (Porcine) 5,000 unit 05/07/25 06:00 05/15/25 14:23 Heparin Sod Inj 5000 Unit/Ml Vial SC 05/21/25 05:59 5,000 unit On Hold: 05/15/25 15:38 Q8HR JAROD Administration Ceftriaxone Sodium/Dextrose 2 gm in 50 mls @ 100 mls/hr 05/09/25 10:15 05/16/25 08:11 Rocephin/D5w 2gm IV 06/04/25 12:00 100 mls/hr QDAY JAROD Administration Ondansetron HCl 4 mg 05/06/25 22:07 Ondansetron Inj 2 Mg/Ml Inj 2 Ml IVP 06/05/25 22:06 Q6H PRN NAUSEA OR VOMITING Protocol Pantoprazole Sodium 40 mg 05/12/25 09:00 05/16/25 08:11 Pantoprazole 40 Mg Tablet PO 06/11/25 08:59 Not Given QDAY [facility] Sennosides 1 tab 05/11/25 10:15 05/16/25 08:11 Senna/Docusate Sod 1 Tab Tablet PO 06/10/25 10:14 Not Given QDAY [facility] Protocol Plan This is a 45-year-old male with no significant PMHx presenting with LLE swelling and pain. Admitted for SSTI, found to have septic arthritis of the left knee joint and left leg abcess. Wound cultures with MSSA # MSSA Septic Arthritis of the Left Knee #Left leg abscess, MSSA s/p I&D Patient presenting with 6 days of progressive knee then leg swelling. Afebrile with stable vitals, but significant knee tenderness and pitting edema of the left leg. No pain out of proportion to exam. WBC 12.3. ESR 94. CT demonstrated a 6.8x2.3 fluid collection between the medial head of the gastrocnemius and the soleus. Dopplar US negative for DVT. Synovial fluid analysis of the knee joint was notable for 52,000 WBCs. Patient taken for washout of the knee and fasciotomy. Was found to have extensive purulent material in the gastroc fluid collection as well as in the knee. Cultures taken from both sites, MSSA in abscess With lack of trauma, this is likely from hematogenous spread from unclear source. Differential includes endocarditis versus disseminated gonococcal infection. There was concern for possible intrabdominal infection based on the lesions visualized on the abdomen. CT of Abd and pelvis was only notable for pulmonary nodules and localized thickening of the wall of the sigmoid colon. 6 month f/u CT of the nodules and F/U colonoscopy to rule out malignant process was recommended. Vanc and cefipime (05/06- 05/09) -s/p i and d on 05/[address] Schaffer -wound cultures with MSSA prater sensitive -cultures from left knee are positive with MSSA -Ceftriaxone 2gm IV (05/09- end date 06/04) (4 week abx course ) -TTE: Normal LV size and function. Estimated EF at 55-60 %. Normal diastolic function The RV size is mildy increased with normal systolic function. -PICC Line Placed. #Hyponatremia-resolved Mildly hyponatremic today, 132 from 134 yesterday. Osmolarity also low at 263. He is getting IV ceftriaxone daily but no mIVF. 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 Now 137 after daily salty snack. -Daily salty snack during pre-rounds. #Pain Control Patient reporting 8/10 pain. Still some significant edema in the leg. Pain with passive movement but not excruciating. Compartment syndrome considered but less likely, as patient is not in acute distress. -Scheduled tylenol 650 mg q6 hrs -PRN oxycodone 5 mg q6 hrs. -PRN morphine 2 mg IV q 6hrs. #Dysuria- (resolved) Complains of burning sensation with urination since 1 week ago with dark urine. Denies penile discharge or foul smelling urine. Possible UTI. Normal renal function. Continues to deny dysuria today. ? UA negative for evidence of infection. ? Antibiotic as above ? Urine cx NGTD #Hypokalemia (resolved) Likely from poor intake. Resolved after repletion. Health Maintenance: DVT prophylaxis: Heparin Diet: Regular diet + salty chips Fry: No Lines: PIV CODE STATUS: Full code Disposition: DC home with home health Patient's plan and care discussed with my attending, Dr Muller and my senior Dr. Moore. Jake Thomas DO PGY-1 ([facility] Resident) Attending Provider Attestation/Addendum Estela Fields DO, attest that I was physically present for the tapia portions of the service and evaluated the patient with the resident and I reviewed and discussed the case with the resident and agree with the resident's findings and plans of care as documented above Patient seen and evaluated this AM. Patient states he is feeling well. No acute events overnight. Left knee dressing is CDI. 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 Patient is otherwise stable for discharge. He is to f/u with ortho in one week.
--- NOTE | 2025-05-16 14:06 | ESDS_ITS ---
<Statement entered by Estela Muller DO - 05/18/25 07:39> I, Estela Muller DO, attest that I was physically present for the tapia portions of the service and evaluated the patient with the resident and I reviewed and discussed the case with the resident and agree with the resident's findings and plans of care as documented above <Statement entered by Stormy Moore MD - 05/17/25 19:33> Note reviewed, I agree with most of its contents and agree with the patient's care as documented by Dr. Thomas. The patient's management plan was discussed with my attending physician Dr. Muller. Stormy Moore, PGY-2 Planned Discharge Date 05/16/25 DS: Providers Provider Date of admission: 05/06/25 22:07 Primary care physician: LISETH Roche Admitting Provider: Emelyn Mcintyre MD Attending Provider on Admission: Estela Muller DO Consults: 05/07/25 13:31 Referral Wound Care Urgent Comment: vac change in 3 days 05/10/2025 05/07/25 13:40 Consult to Orthopedic Routine Comment: Consulting Provider: Ez Schaffer 05/08/25 11:00 Consult to Infectious Diseases Routine Comment: Consulting Provider: Neftali Jaime 05/08/25 11:28 Referral Nutritional Services Routine Comment: Wounds 05/12/25 09:38 Referral Physical Therapy Routine Comment: Physician Instructions: Instructions: s/p washout and I&D of right knee due to septic arthritis. Wound vac in place, needs to start ambulating. Thank you Attending Provider on DC: Estela Muller DO Discharging Provider: Estela Muller DO DS: Diagnosis Problem List Completed Was Problem List Reviewed/Reconciled?: Yes Hospital Course Hospital Course Hospital course: Hospital Course Mr. Guallpa is a 45 year old man with no significant PMHx who works in the [employer] who presented with LLE swelling and pain, he was admitted for a skin and soft tissue infection of the Left leg, who was found to have septic arthritis of the left knee joint and left calf abscess with wound cultures positive for MSSA. He was taken to surgery by ortho for i and d and started on IV antibiotics. Infectious disease was consulted who recommended 4 week iv antibiotic course with end date 06/04/2025. Given concern for possible endocarditis, TTE was performed that demonstrated normal lv size and function and ef 55-60% with no vegitations noted. PICC line was placed for continued iv antibiotics. Patient stable and medically cleared for discharge with home health. Discharge instructions Continue IV ceftriaxone 2g daily until 06/04 as treatment for your septic arthritis. Follow up with your PCP in 1-2 weeks. Monitor for any worsening signs such as fever, chills, worsening joint pain, redness, or swelling. Wound care to left knee and inner lower leg sutures in place. Surgical procedure done 05/07/25: keep dressing intact. May shower with dressing in place. Follow up with Dr. Schaffer for sutures removal on 05/28/25. Diagnoses # MSSA Septic Arthritis of the Left Knee #Left leg abscess, MSSA s/p I&D #Dysuria- (resolved) #Hypokalemia (resolved) #Hyponatremia-resolved Patient's plan and care discussed with my attending, Dr Muller and my senior Dr. Soria and Dr. Oscar Thomas, DO PGY-1 ([facility] Resident) Time Spent with Patient Time attestation: Total time spent providing and/or coordinating discharge services: Time spent: Greater than 30 minutes Home Health Home Health Referral Orders: 05/16/25 08:38 Home Health Referral Routine Reason For Exam: septic arthritis Home-Bound The patient must either because of illness or injury, need the aid of supportive devices such as crutches, canes, wheelchairs, and walkers; the use of special transporta tion; or the assistance of another person in order to leave their place of residence; OR have a condition such that leaving his or her home is medically contraindicated. In addition, the patient also meets the following criteria: patient is normally unable to leave the home and leaving home requires considerable taxing effort. Addendum to Home Health Certification Practitioner's Certification: I certify that the patient has been under my care in the hospital and the care of attending physician (see below). We had a oney-bf-optq encounter on (see date below). My clinical findings indicate that the patient is home bound per the above criteria and the Home Health Services noted in these orders are medically necessary. The primary reason for the yyub-lu-yeuk encounter is related to the fact that the patient requires home health services. Date Certifying Ueyz-ce-Avgs Physician Encounter: 05/06/25 Physician's Name who will Assume Oversight for Services: Rafita Streeter Physician's Phone No.who will Assume Oversight for Service: WINDLACE MACHINE OPERATOR - Community Resources: No PT to Evaluate: Yes PT to evaluate and provide a treatmnet plan to increase patient's mobility and strength. Wound Care: Yes Home Health RN - Wound Care Order: as per wound nurse IV Therapy: Yes IV Medication: ceftriaxone IV Dose: 2g IV Frequency: daily IV Stop Date: 06/04/25 Discontinue PICC Line Once Treatment Complete: Yes RN Safety Evaluation: Yes RN to evaluate and create a plan of care that will produce positive outcomes. Palliative Treatment: No Palliative treatment and evaluate the need for hospice. Home Health Aide - Personal Care: Yes Home Health Aide to assist with any ADL's. Exam Vital Signs Temp Pulse Resp BP Pulse Ox O2 Del Method O2 Flow Rate 97.2 F 78 18 126/75 98 Room Air 2 05/16/25 12:00 05/16/25 12:00 05/16/25 12:05/16/25 12:05/16/25 12:05/16/25 12:05/16/25 04:00 Narrative Exam General: Welsh speaking, middle aged patient, no acute distress. HEENT: Mucosa moist. Pupils are equal. Cardiovascular: Regular rate and rhythm, extremities warm and well perfused. Respiratory: No tachypnea, labored speech, or stridor. Abdomen: Soft, nontender, not distended, multiple small scabs scattered on the abdomen without underlying fluctuance. Improving. Skin: Left knee and calf has dressing in place. Right fourth finger swollen DIP with dressing in place Musculoskeletal: Knee is less edematous along with the lower leg Dressing is clean/dry/intact. Some pain with passive dorsiflexion of the left foot thats referred to the popliteal region. Left upper arm with PICC line in place. Neuro: Alert and oriented x3. Intact sensation of the left lower extremity. Able to wiggle toes without pain. Psych: Normal affect and mood Discharge Plan Plan Patient Disposition: Home w/HOME HEALTH Disposition Comment: For wound care and IV antibiotic Patient condition on transfer: Stable Prescriptions/Referrals Prescriptions/Med Rec: New oxycodone 5 mg capsule 5 mg PO Q8H MDD 15mg PRN (Reason: pain) 3 Days Qty: 9 0RF Continued ibuprofen 600 mg tablet 600 mg PO QID PRN (Reason: pain) Qty: 40 0RF Referrals: Ez Schaffer MD [Physician, Orthopedics] Rafita Cota FNP-C [Primary Care Provider] Patient/Caregiver Discharge Instructions Other Discharge Activity Instructions:: Continue IV ceftriaxone 2g daily until 06/04 as treatment for your septic arthritis. Monitor for any worsening signs such as fever, chills, worsening joint pain, redness, or swelling. Take oxycodone 5mg as needed for pain. But do not exceed more than 15mg a day. Alternate with Tylenol in needed. Follow up with your PCP in 1-2 weeks. Repeat chest imaging in 6 months for pulmonary nodule surveillance. Recommend elective colonoscopy outpatient for evaluation and routine screening. Wound care to left knee and inner lower leg sutures in place. Surgical procedure done 05/07/25: keep dressing intact. May shower with dressing in place. Follow up with Dr. Schaffer for sutures removal on 05/28/25. Education Materials: What Is Arthritis?, Biopsy Thyroid Fine Needle Aspir, ED Abscess, Incision And Drainage Print Language: Welsh Stand Alone Forms: Yolanda Award Info., Patient Portal Info Letter Discharge Order Discharge Orders: Discharge (Routine); Ordered 05/16/25 Ordered By: Stormy Moore Quality Discharge Quality Measures VTE prophylaxis
--- NOTE | 2025-05-16 16:00 | PC.SS ---
SS follow up note; SS sent out Fax to [facility] for FWW. [facility] will contact patient for delivery.
== END 2025-05-16 15:54 | disposition home health service (06) | DRG 313 ==
LOC: SERX 16:34 → SERHOLD 22:40 → S3SX 05-07 06:06
PROVIDERS: Nurse Practitioner Family; Orthopaedic Surgery Adult Reconstructive Orthopaedic Surgery; Admitting Provider Student in an Organized Health Care Education/Training Program; Emergency Provider Emergency Medicine; Visit Provider Internal Medicine
PROC: 0J9P0ZX Drainage of Left Lower Leg Subcutaneous Tissue and Fascia, Open Approach, Diagnostic (ICD-10-PCS; 2025-05-07 12:15)
DX: M00.062 Staphylococcal arthritis, left knee (principal); L03.116 Cellulitis of left lower limb; I10 Essential (primary) hypertension; E87.6 Hypokalemia; E87.1 Hypo-osmolality and hyponatremia; K59.00 Constipation, unspecified; L02.211 Cutaneous abscess of abdominal wall; L02.416 Cutaneous abscess of left lower limb
CPT/HCPCS: 36415; 71260; 73701; 74177; 76882; 80048; 80053; 80202; 81001; 83036; 83605; 83735; 84100; 84295; 84315; 84560; 85025; 85610; 85652; 85730; 86331; 86635; 87040; 87070; 87075; 87077; 87086; 87186; 87205; 89051; 93225; 93306; 93971; 96361; 96365; 96366; 96375; 97162; 99284; A4217; A4649; C1751; C1894; J0131; J0690; J0692; J0696; J1644; J1885; J2250; J2270; J2405; J2470; J2543; J2704; J3010; J3372; J3373; J3480; J7030; J7050; Q9967; A9270

== ENCOUNTER 2025-05-22 09:42 | Outpatient (AMB) | payer MEDICAID, SELFPAY ==
--- NOTE | 2025-05-22 10:07 | PD.ORTHCLVIS ---
Vital signs 05/22/25 10:34 Weight 70.307 kg Weight Measurement Method Estimated by Patient BP 98/62 Blood Pressure Source Automatic Cuff Blood Pressure Location Right Upper Arm Position Sitting Respiration 18 Pulse 89 Pulse Source Monitor Temp 97.7 F Temp Source Temporal Artery Scan Pulse Oximetry (%) 97 Oxygen Delivery Method Room Air Med/Allergies Allergies & Medications Allergies No Known Allergies Allergy (Verified 05/22/25 10:40) Medication Reconciliation ibuprofen 600 mg tablet 600 mg PO QID PRN pain #40 tabs 05/23/21 [Rx Confirmed 05/22/25] Exam Exam Patient is in no acute distress and is cooperative with the examination today. Breathing is nonlabored. Patient has a normal mood and affect. The patient has a gait that is nonantalgic Bilateral extremities were evaluated and demonstrates sensation intact to light touch. Palpable pedal pulses are present. No significant edema is present. Bilateral hips were examined. The patient has no pain with log roll of the hips. Internal rotation to 30 degrees and external rotation to 30 degrees is painless. Negative FADIR. Left knee incision is clean dry and intact. Knee feels stable varus valgus stress as well as AP translation Assessment and Plan Problem List (1) Abscess of left knee: Status: Acute Plan: ASSESSMENT AND PLAN 1. Postoperative status following left knee irrigation debridement: Currently 15 days post-procedure with significant improvement in knee pain. Occasional fevers are reported, but none were observed during this office visit. The knee appears to be healing well with minimal fluid present. Sutures will be removed today, and Steri-Strips will be applied. Physical therapy will be initiated in approximately 2 weeks to aid in recovery and improve mobility. Patient education on signs of infection and the importance of adhering to the physical therapy regimen was provided. Risks and benefits of early mobilization and physical therapy were discussed, emphasizing the goal of restoring function and preventing stiffness. No additional medications or referrals are necessary at this time. (2) Septic arthritis of knee: Status: Acute Office Procedures GNS Level of Care Nursing/Assessment Patient Status: Established Patient Nursing Assessment/Reassesment: Medication Reconciliation, Update PMH in EMR and Vital Signs Coordination of Care: Complex Care and Chronic Disease 1-5, Education Complex Pt/Fam, Consent,records obtained, informed consent, Results/Orders obtained and Staff clarify orders Special Needs: Language special needs Miscellaneous Interventions: Staple/Suture Removal Established Patient Charge Established Patient Point Assignment: 110 Established Patient Point Charge: EP Level 3 (80-115) MA Intake Visit Data Collection New Patient or Established: Established Patient (seen at [facility] within 3 years) Reason for Visit:: POST OP LT KNEE Seen by Clinical Staff ONLY (RN/MA): No Verbal consent obtained for Telemed visit?: No Programming Internship Required: Yes PCP or OBGYN visit in last 3 months: Yes Hx Now: No Do You Feel Safe at Home: Yes Authorities Contacted: N/A Questionairres Past Medical History Past Medical History Have you ever been diagnosed with any of the following: Cardiology Problems Congestive Heart Failure: No Respiratory Problems Chronic Obstructive Pulmonary Disease (COPD): No Asthma: No Genital/Urinary Problems Renal Disease: No Endocrine Problems Diabetes Mellitus Type 1: No Diabetes Mellitus Type 2: No Blood Problems Sickle Cell Disease: No Subjective Visit Visit for: follow up visit and knee Immunization / Flu Flu Vaccine in the Last 12 Months: No Flu Vaccine Exclusion Criteria: No Exclusion Criteria History of Present Illness Chief complaint: Left septic knee and leg abscess status post surgery HISTORY OF PRESENT ILLNESS I, Ez Schaffer, have obtained verbal consent from the patient, to be recorded during this encounter which may include, but not limited to, medical history, examination, treatment plans, and relevant health information.? Patient was informed that recording will be read and reviewed by myself before inclusion in the medical chart. The patient is a 45-year-old male who presents for evaluation of left knee infection. He reports that he has no pain now and that he is doing well. He is 15 days postop. He reports that he occasionally spikes fevers, but the knee pain has significantly improved. He is afebrile today in the office. He is currently not experiencing any pain in his knee. He has been experiencing fevers for the past 3 days, with temperatures reaching up to 102 degrees. The fever typically manifests in the afternoon and subsides by morning. Personal History Occupation: DISABLE Pain Pain level (0-10): 0 Ambulatory data Ambulatory device: other (specify) (WHEELCHAIR) Treatments Improvement with previous injections: No Improvement with PT: No Improvement with NSAIDS: no Review of Systems Review of Systems: All systems negative unless otherwise noted in HPI.
[2025-05-22 10:34] VITALS: BP 98/62; PULSE 89; RESP 18; TEMP 36.5; O2SAT 97
== END 2025-05-22 10:34 | disposition home or self-care (01) ==
LOC: HODSRG 09:42
PROVIDERS: Supervising Provider Orthopaedic Surgery Adult Reconstructive Orthopaedic Surgery; Visit Provider Orthopaedic Surgery Adult Reconstructive Orthopaedic Surgery
DX: Z47.89 Encounter for other orthopedic aftercare (principal); M25.562 Pain in left knee
CPT/HCPCS: 99213; G0463

== ENCOUNTER 2025-05-23 18:12 | Emergency (ER) | payer MEDICAID, SELFPAY ==
[2025-05-23 18:13] VITALS: BMI 28.3
[2025-05-23 19:02] VITALS: BP 112/69; PULSE 121; RESP 22; TEMP 40; O2SAT 97
--- NOTE | 2025-05-23 19:21 | XR_ITS ---
Examination: AP chest single view Technique: Sitting portable AP chest single view Date and time: May 23, 2025, 1931 hrs. Indications: Chest pain sepsis beginning 3 days ago. Findings: Normal heart size. No pneumonia or pulmonary edema. The osseous structures are intact Impression: No pneumonia or pulmonary edema.
--- NOTE | 2025-05-23 19:34 | PD.EDSKIN ---
ED Skin Abcess FB-RME/HPI General Chief complaint: Fever Stated complaint: FEVER, RECENT SURGERY TO LEFT LEG Time Seen by Provider: 05/23/25 19:20 Arrival date/time: 05/23/25 18:12 45M with recent LLE cellulitis and septic arthritis presents to ED with several days of fevers/chills and continued LLE pain. Patient has not been taking antipyretics, only the prescribed ox for pain. Patient has a PICC line and has been getting 2g Rocephin daily. He already had his daily dose today. Patient also confirms his last dose of Tylenol was 9 AM today at 500 mg. Limitations: no limitations Related Data Previous Rx's ?Medication ?Instructions ?Recorded ibuprofen 600 mg tablet 600 mg PO QID PRN pain #40 tabs 05/23/21 Allergies Allergy/AdvReac Type Severity Reaction Status Date / Time No Known Allergies Allergy Verified 05/23/25 18:13 Review of Systems Review of Systems Systems Reviewed: All systems reviewed, normal except as documented Constitutional Constitutional: Reports as per HPI, Reports chills and Reports fever(s) Integumentary/Breasts Skin/Breast: Reports as per HPI and Reports skin pain Past Medical History Past Medical History CARDIAC: Negative Cardiac Disorders or Congestive Heart Failure RESPIRATORY: Negative Chronic Obstructive Pulmonary Disease (COPD) or Asthma GENITOURINARY: Negative Renal Disease ENDOCRINE: Negative Diabetes Mellitus Type 1 or Diabetes Mellitus Type 2 HEMATOLOGIC: Negative Sickle Cell Disease Social History SMOKING STATUS: Never smoker ED Exam General Limitations: Present no limitations General appearance: Present alert and in no apparent distress Head Head exam: Present atraumatic Neck Neck exam: Present normal inspection, full ROM and trachea midline Chest Chest inspection: Present normal inspection and symmetric chest wall rise Extremities Exam Extremities exam: Present full ROM Expanded Lower Extremity Exam Lower leg exam: Present full ROM (L), swelling and erythema Neurological Exam Neurological exam: Present alert and oriented X3 Psychiatric Psychiatric exam: Present normal affect and normal mood Skin Skin exam: Present warm, dry, intact and normal color Course Quality Measures none Orders Category Date Time Status COVID-19 Screening Questionnaire NOW Care 05/24/25 01:[address] Screening NOW Care 05/23/25 20:[address] Screening NOW Care 05/24/25 02:07 Completed Decision to Admit X1 Care 05/24/25 01:14 Completed Insert IV NOW Care 05/23/25 19:[address] abdomen pelvis w con Stat Exams 05/23/25 20:[address] knee LT w con Stat Exams 05/24/25 02:07 Completed US gall bladder Stat Exams 05/23/25 20:48 Completed XR chest 1V portable Stat Exams 05/23/25 19:21 Completed Acetaminophen Stat Lab 05/23/25 19:23 Completed Alcohol, Blood Medical Stat Lab 05/23/25 19:36 Completed Blood Culture (Lab) Stat Lab 05/23/25 19:42 Results Body Fld Culture & Gram Stain Stat Lab 05/24/25 05:30 Completed CBC Stat Lab 05/23/25 19:36 Completed CMP [Comprehensive Metabolic Panel] Stat Lab 05/23/25 19:36 Completed CMP [Comprehensive Metabolic Panel] Stat Lab 05/24/25 06:23 Completed CRP [C-Reactive Protein] Stat Lab 05/23/25 19:36 Completed ESR [Sed Rate (ESR)] Stat Lab 05/23/25 19:36 Completed Glucose,Synovial Fluid* Stat Lab 05/24/25 05:30 Received Hepatitis Acute Panel Stat Lab 05/23/25 19:36 Completed INR [Prothrombin Time with INR] Stat Lab 05/23/25 19:36 Completed Influenza A & B Rapid Panel Stat Lab 05/23/25 21:38 Completed Lactate (Lactic Acid) Stat Lab 05/23/25 19:36 Completed Lactic Acid, 3 HR Stat Lab 05/23/25 22:57 Completed Lipase Stat Lab 05/23/25 19:36 Completed Liver Panel Stat Lab 05/24/25 06:23 Completed Misc Send Out* Stat Lab 05/24/25 05:30 Received PTT [Partial Thromboplastin Time] Stat Lab 05/23/25 19:36 Completed Procalcitonin Stat Lab 05/23/25 19:36 Completed Synovial Fluid, Cell Cnt/Diff Stat Lab 05/24/25 05:30 Completed TSH [Thyroid Stimulating Hormone] Stat Lab 05/23/25 19:36 Completed Acetaminophen Tab [Tylenol ES Tab] Med 05/23/25 19:21 Discontinued 1,000 mg PO X1 ONE Calcium Carbonate Med 05/24/25 10:40 Discontinued 600 mg PO X1 ONE Ketorolac Inj [Toradol Inj] Med 05/24/25 11:21 Discontinued 15 mg IVP X1 ONE Ketorolac Inj [Toradol Inj] Med 05/23/25 19:21 Discontinued 30 mg IVP X1 ONE Morphine* Inj Med 05/24/25 04:06 Discontinued 4 mg IVP Q6H PRN Sodium Chloride 0.9% 1000 ml [Ns] 1,000 ml Med 05/24/25 02:51 Discontinued IV 250 mls/hr Sodium Chloride 0.9% 1000 ml [Ns] 1,000 ml Med 05/23/25 19:21 Discontinued IV 999 mls/hr Sodium Chloride 0.9% 1000 ml [Ns] 1,000 ml Med 05/23/25 20:48 Discontinued IV 999 mls/hr Vancomycin Pharmacy to Dose Med 05/24/25 07:12 Discontinued 1 each IV STAT STA Vancomycin/D5w 1500 mg Ivpb 300 ml Med 05/24/25 07:45 Discontinued IV X1 cefTRIAXone/D5w 1gm IV premix [Rocephin/D5w 1gm IV Med 05/24/25 07:12 Discontinued premix] 1 gm in 50 ml IV STAT Vital Signs Vital signs: Vital Signs Temperature 104 F H 05/23/25 19:02 Pulse Rate 121 H 05/23/25 19:02 Respiratory Rate 22 H 05/23/25 19:02 Blood Pressure 112/69 05/23/25 19:02 Pulse Oximetry (%) 97 05/23/25 19:02 Oxygen Delivery Method Room Air 05/23/25 19:02 O2 at 97% on RA and WNls Skin / Abscess / Foreign Body MDM Narrative MDM Narrative:: 45M with recent LLE cellulitis and septic arthritis presents to ED with several days of fevers/chills and continued LLE pain. Patient has not been taking antipyretics, only the prescribed ox for pain. Patient has a PICC line and has been getting 2g Rocephin daily. He already had his daily dose today. Patient also confirms his last dose of Tylenol was 9 AM today at 500 mg. Physical exam reveals unremarkable L knee exam, but some redness and swelling on L lower leg. No ab tenderness. Patient is febrile, so sepsis alert called. Swabs neg. CT and US unremarkable. No leukocytosis. Procal/ESR/CRP all elevated. CMP remarkable for mild hyponatremia and significantly elevated LFTs. Bili and lipase unremarkable. Coags minimally elevated. Alcohol and Tylenol level normal. Upon reassessment, initially elevated lactate now WNLs. Patient felt better and temp reduced. Patient confirms he never had ab pain. Patient also confirms his last dose of Tylenol was 9 AM today at 500 mg. Hep panel neg. TSH normal. Spoke to IM resident who reports to Dr. Mcintyre, who wants wants CT first. Telerad reading suggests fx vs osteomyelitis with complex knee effusion. Spoke to angela Blanco MD at [facility], who recommends aspiration and outpatient follow-up. Spoke to Dr. Dottie ED MD here, who did knee aspiration. Care signed out to Dr. Rahman pending repeat labs and dispo. Patient eventually discharged. Patient data External records reviewed:: [facility] previous records Clinical information provided by:: patient Social determinants that could affect healthcare access:: none Patient has the following chronic illnesses:: LLE cellulitis and septic arthritis How is presenting disease/condition affected by chronic disease/condition?: caused by Evaluation data The following diagnostics were reviewed and interpreted by me:: lab results and radiology exam(s) Lab and/or radiology exams considered but not ordered:: ordered Interpretation Summary: above Medications / Prescriptions Medications or Prescriptions considered but not ordered:: ordered Medication administrations:: Medication Administration History Discontinued Medications Acetaminophen (Acetaminophen 500 Mg Tablet) 1,000 mg PO X1 ONE Stop: 05/23/25 19:22 Last Admin: 05/23/25 20:04 Dose: 1,000 mg Documented By: Calcium Carbonate (Calcium Carbonate 600 Mg Tablet) 600 mg PO X1 ONE Stop: 05/24/25 10:41 Last Admin: 05/24/25 11:01 Dose: 600 mg Documented By: BY Sodium Chloride (Ns) 1,000 mls @ 999 mls/hr IV .Q1H1M ONE Stop: 05/23/25 20:21 Last Infusion: 05/23/25 23:24 Dose: Infused Documented By: Admin: 05/23/25 20:17 Dose: 999 mls/hr Documented By: Sodium Chloride (Ns) 1,000 mls @ 999 mls/hr IV .Q1H1M ONE Stop: 05/23/25 21:48 Last Infusion: 05/23/25 23:24 Dose: Infused Documented By: Admin: 05/23/25 20:54 Dose: 999 mls/hr Documented By: Sodium Chloride (Ns) 1,000 mls @ 250 mls/hr IV .Q4H ONE Stop: 05/24/25 06:50 Last Infusion: 05/24/25 07:18 Dose: Infused Documented By: Admin: 05/24/25 03:01 Dose: 250 mls/hr Documented By: DALY Ceftriaxone Sodium/Dextrose (Rocephin/D5w 1gm Iv Premix) 1 gm in 50 mls @ 100 mls/hr IV STAT STA Stop: 05/24/25 07:41 Last Infusion: 05/24/25 08:27 Dose: Infused Documented By: Admin: 05/24/25 07:42 Dose: 100 mls/hr Documented By: BY Vancomycin HCl/Dextrose (Vancomycin/D5w 1500 Mg Ivpb) 300 mls @ 120 mls/hr IV X1 ONE Stop: 05/24/25 10:14 Last Infusion: 05/24/25 11:04 Dose: Infused Documented By: Admin: 05/24/25 08:28 Dose: 120 mls/hr Documented By: BY Ketorolac Tromethamine (Ketorolac Inj 30 Mg/Ml Vial) 30 mg IVP X1 ONE Stop: 05/23/25 19:22 Last Admin: 05/23/25 20:17 Dose: 30 mg Documented By: DALY Ketorolac Tromethamine (Ketorolac Inj 30 Mg/Ml Vial) 15 mg IVP X1 ONE Stop: 05/24/25 11:22 Last Admin: 05/24/25 11:25 Dose: 15 mg Documented By: BY Morphine Sulfate (Morphine Sulf Inj 4 Mg/Ml Vial) 4 mg IVP Q6H PRN PRN Reason: PAIN SCALE 4-10(Mod-Sev Last Admin: 05/24/25 11:00 Dose: 4 mg Documented By: Admin: 05/24/25 07:57 Dose: 4 mg Documented By: BY Pharmacy Consult (Vancomycin Pharmacy To Dose 1 Each Each) 1 each IV STAT STA Stop: 05/24/25 07:13 Last Admin: 05/24/25 08:43 Dose: Not Given Documented By: BY Non-Admin Reason: Duplicate Medication on eMAR above Consultations Consultation(s) initiated? (list below): Yes Diagnosis Skin/Abscess Differential Diagnosis: abscess of skin or subcutaneous tissue, viral exanthem, dermatophytosis, urticaria, herpes zoster, allergic reaction to drug, cellulitis, eczema, insect bites, impetigo, contact dermatitis and other (septic arthritis, acute liver failure) Most likely diagnosis given after review of the tests above:: septic knee arthritis Admission Indicated Admission indicated?: not indicated Admission Request Was there a request for admission?: No Disposition Plan Disposition Plan: Discharge Discharge Attestation Discharge Attestation: The patient and all family members were given an opportunity to ask questions and understood the discharge instructions. Discharge instructions specifically effects, indications for sooner follow up or return to the emergency department, and the expected course of current diagnosis. Patient condition: Stable Discharge Plan Plan Patient Disposition: HOME (Self Care) Prescriptions/Referrals Prescriptions/Med Rec: No Action ibuprofen 600 mg tablet 600 mg PO QID PRN (Reason: pain) Qty: 40 0RF Referrals: Chelsy Streeter (VENEER MEASURER),GHAZAL Eller [Primary Care Provider, Emergency Medicine] - In 1 week Problem List Clinical Impression: Septic arthritis of knee Patient/Caregiver Discharge Instructions Education Materials: Joint Infec Abx Tx Cath Additional Instructions: Por favor seguir administrando antibioticos ricco las instrucciones de villa ciruj[place] el doctor Schaffer. Hoy discutimos villa hali con el, repaso todos los datos. Dice que usted esta progresando saud y los resultados de la tomografia y de villa arthroscopia es apropiado y esperado ricco el proceso de sanacion. Regresar de inmediato si la pierna cambia de dolor, tiene pus u algun desecho de las heridas, peor dolor o sintomas de preocupacion Print Language: Turkmen Stand Alone Forms: Yolanda Award Info., Patient Portal Info Letter
[2025-05-23 19:53] LABS: Lactate (Lactic Acid) 2.2 mMol/L (0.4-2.0)
[2025-05-23 19:58] LABS: Sed Rate (ESR) 79 mm/hr (0-15)
[2025-05-23 20:00] LABS: Basophils # (Auto) 0.0 Thou/mm3 (0.0-0.2); Basophils % (Auto) 0 % (0-2.5); Eosinophils # (Auto) 0.1 Thou/mm3 (0.0-0.5); Eosinophils % (Auto) 2 % (0-10); Hematocrit 32.8 % (41.0-53.0); Hemoglobin 10.8 g/dL (13.5-16.0); Immature Granulocytes Auto 0.03 Thou/mm3 (0.00-0.00); Lymphocytes # (Auto) 1.0 Thou/mm3 (1.0-4.8); Lymphocytes % (Auto) 24 % (10-50); Mean Corpuscular HGB Conc 32.9 g/dl (31.0-37.0); Mean Corpuscular Hemoglobin 28.5 pg (25.0-35.0); Mean Corpuscular Volume 87 fL (80-100); Monocytes # (Auto) 0.3 Thou/mm3 (0.0-0.8); Monocytes % (Auto) 7 % (0-12); Neutrophils # (Auto) 2.7 Thou/mm3 (1.8-7.7); Neutrophils % (Auto) 67 % (37-80); Nucleated Red Blood Cell # 0.00 Thou/mm3 (0.00-0.00); Nucleated Red Blood Cell % 0 /100 WBC (0); Platelet Count 503 Thou/mm3 (140-440); RDW Standard Deviation 43.7 fL (35.1-43.9); Red Blood Count 3.79 Miln/mm3 (4.50-5.90); White Blood Count 4.0 Thou/mm3 (3.8-10.6)
[2025-05-23 20:04] VITALS: TEMP 40
[2025-05-23] MEDS: ACETAMINOPHEN 500 MG TABLET 1000 MG PO (20:04)
[2025-05-23 20:10] VITALS: BP 121/84; PULSE 108; RESP 20; TEMP 40.3; O2SAT 98
[2025-05-23 20:17] VITALS: TEMP 40.3
[2025-05-23] MEDS: KETOROLAC INJ 30 MG/ML VIAL IVP (20:17)
[2025-05-23] MEDS: SODIUM CHLORIDE 0.9% 1000 ML 1,000 ML 999 ML IV ×2 (20:17→20:54)
[2025-05-23 20:42] LABS: Alanine Aminotransferase 605 U/L (10-49); Albumin, Serum 3.9 gm/dL (3.5-5.0); Albumin/Globulin Ratio 1.0 (1.2-2.2); Alkaline Phosphatase 731 U/L (46-116); Anion Gap 11 (7-16); Aspartate Amino Transferase 935 U/L (0-34); BUN/Creatinine Ratio 13 Ratio (12-20); Bilirubin,Total 0.5 mg/dL (0.3-1.2); Blood Urea Nitrogen 10 mg/dL (9-23); C-Reactive Protein 10.7 mg/dL (0.0-0.9); Calcium 8.7 mg/dL (8.3-10.6); Calcium (Corrected) 8.8 mg/dL (8.5-10.1); Carbon Dioxide 23.7 mMol/L (20.0-31.0); Chloride 94 mMol/L (98-107); Creatinine (Component) 0.8 mg/dL (0.6-1.3); Estimated Creatinine Clearance 100.4 mL/min (>60); Globulin 3.9 gm/dL (2.3-3.5); Glucose 99 mg/dL (74-106); Osmolality,Calculated 257 (275-295); Potassium 3.8 mMol/L (3.4-5.1); Procalcitonin 1.66 ng/ml (0.0-0.49); Sodium 129 mMol/L (136-145); Thyroid Stimulating Hormone 2.31 uIU/mL (0.55-4.78); Total Protein 7.8 gm/dL (5.7-8.2); eGFR > 60 See Note
--- NOTE | 2025-05-23 20:48 | XR_ITS ---
Examination: Abdomen sonogram, Limited Date and time of exam: May 23, 2025, 2 hrs. Indications: Elevated liver function tests on laboratory examination today Technique: Real-time cheng scale transabdominal sonographic images of the upper abdomen obtained. Findings: Normal gallbladder. Normal common bile duct 0.3 cm Pancreatic head 2.7 cm Liver 16.2 cm fatty infiltration mildly lobular contour Normal hepatopedal portal venous flow Patent IVC Impression: Normal gallbladder Mild hepatomegaly suspect primary hepatocellular disease, fatty infiltration no focal liver lesions
--- NOTE | 2025-05-23 20:48 | XR_ITS ---
Examination: CT abdomen with intravenous contrast CT pelvis with intravenous contrast 2-D coronal reconstructions 2-D sagittal reconstructions Date and time of exam:May 23, 2025, 1018 hrs. Indications: Status post knee surgery 2 weeks ago with elevated liver function tests fever and abdominal pain. CTDI: vol (mGy) 12.80 DLP: (mGycm) 578 Technique: Multiple axial sections of the abdomen and pelvis have been obtained. 64 slice high-resolution scanner used. 3 mm axial sections have been obtained, post intravenous injection 60 cc Isovue-370 2-D sagittal, coronal reconstructions obtained. Low dose protocols were performed. One or more of the following dose reduction techniques were used; automated exposure control, adjustment of the mA and/or KV according to patient size, use of iterative reconstruction technique. Findings: No focal liver or splenic lesions No gallstones No pancreatic or adrenal mass No renal or ureteral calculi, no hydronephrosis Normal appendix Multiple mildly fluid distended small bowel loops in the abdomen No diverticulitis Urinary bladder intact No prostatomegaly Fat-containing right inguinal hernia Impression: No abdominal or pelvic abscess No focal liver lesions or biliary tract dilatation No gallstones Mild small bowel ileus versus enteritis Normal appendix No diverticulitis
[2025-05-23 21:15] VITALS: TEMP 39.2
[2025-05-23 21:42] LABS: INR 1.2 (0.9-1.3); Partial Thromboplastin Time 33.4 Seconds (22.0-36.0); Prothrombin Time 12.7 Seconds (9.0-12.2)
[2025-05-23 21:49] LABS: Lipase 56 U/L (12-53)
[2025-05-23 21:58] LABS: Influenza A Ag Negative; Influenza B Ag Negative
[2025-05-23 22:51] LABS: Reflex Lactate? Y
[2025-05-23 23:01] LABS: Lactic Acid, 3 HR 0.7 mMol/L (0.4-2.0)
[2025-05-23 23:06] VITALS: BP 121/84; PULSE 81; RESP 13; TEMP 37.5; O2SAT 98
[2025-05-23 23:06] LABS: Acetaminophen < 2.0 mcg/mL (10.0-20.0)
[2025-05-23 23:26] LABS: Alcohol, Blood Medical < 3.0 mg/dL (0-10.0)
[2025-05-24 01:12] LABS: Hepatitis A Antibody IgM Non Reactive (Non React); Hepatitis B Core Antibody IgM Non Reactive (Non React); Hepatitis B Surface Antigen Non Reactive (Non React); Hepatitis C Antibody Non Reactive (Non React)
--- NOTE | 2025-05-24 02:07 | XR_ITS ---
Examination: CT left knee with intravenous contrast 2-D sagittal and coronal reconstructions Exam date and time: May 24, 2025, 0238 hrs. Indications: Left knee surgery 2 weeks ago with redness swelling and pain, clinical diagnosis septic arthritis CTDI:vol (mGy) 7.09 DLP: (mGycm) 359 Technique: Multiple axial sections of the left knee have been obtained. Sections have been obtained, 3 mm slice thickness. Intravenous contrast administered, 60 cc Isovue-370. 2-D sagittal, coronal images obtained. Low dose protocols were performed. One or more of the following dose reduction techniques were used; automated exposure control, adjustment of the mA and/or KV according to patient size, use of iterative reconstruction technique. Findings: Small areas of radiolucency in the femoral condyle medially, for instance axial image 108 through 112 Significant complex fluid in the knee joint Patella tibia-fibula intact Impression: Small areas of radiolucency in the medial femoral condyle, differential would include osteonecrosis, early osteomyelitis, microtrabecular fracture lines not excluded Complex fluid in the knee joint, consider septic arthritis Recommend MRI knee follow-up The knee joint is amenable to fluoroscopically guided aspiration as clinically warranted
[2025-05-24] MEDS: SODIUM CHLORIDE 0.9% 1000 ML 1,000 ML 250 ML IV (03:01)
--- NOTE | 2025-05-24 03:45 | PRELIM_ITS ---
CT left knee with intravenous contrast (axial sections with sagittal and coronal reformats) May 24, 2025 at 0232 hours Clinical History: Rule out septic arthritis. Comparison: No prior study is available for comparison. Findings: Acute fracture versus osteomyelitis of the medial femoral condyle. Complex knee joint effusion. No dislocation. Vascular calcifications. Impression: Acute fracture versus osteomyelitis of the medial femoral condyle. Correlation with MRI is recommended. Complex knee joint effusion. Report Electronically Signed By: Georges Perez 05/24/2025 3:44:24 AM [EST]
[2025-05-24 05:44] LABS: Synovial Fluid Appearance Cloudy; Synovial Fluid Color Yellow
[2025-05-24 05:45] LABS: Source,Synovial Fluid Knee
[2025-05-24 06:00] LABS: Synovial Fluid WBC 1441 /cmm
[2025-05-24 06:01] LABS: Synovial Fluid Mononuclear 79 %; Synovial Fluid Polynuclear 21 %; Synovial Fluid RBC 10000 /cmm
--- NOTE | 2025-05-24 06:25 | EDNOTE_ITS ---
Emergency Room Addendum <Sonia Alvarado - Last Filed: 05/24/25 06:30> Addendum Narrative: 0600: Care assumed from RADHA Jacinto. Past medical, surgical, social and family history reviewed. Vitals and home medications reviewed. I will assume the care of the patient at this time, pending remainder of labs and final disposition. Please refer to the emergency department record for history and examination from initial visit.? Physical exam by me shows patient under no acute distress at this time. <Ana Luisa Rahman MD - Last Filed: 05/24/25 10:45> Addendum Narrative: 0600: Care assumed from RADHA Jacinto. Past medical, surgical, social and family history reviewed. Vitals and home medications reviewed. I will assume the care of the patient at this time, pending remainder of labs and final disposition. Please refer to the emergency department record for history and examination from initial visit.? Physical exam by me shows patient under no acute distress at this time. Patient resting comfortably in bed, denies any fevers, worsening swelling or pain. Patient states that he feels significantly better following the arthrocentesis. States that he has been compliant with his antibiotic at home. Patient has 2+ DP pulse in the lower extremity. Bilateral lower extremities are warm and well- perfused. Surgical wound sites are clean dry intact, without fluctuance purulence no surrounding erythema. Compartments are soft in the thigh as well as the lower leg. Prior provider evaluated patient. Ordered labs, CT scan with contrast of the lower extremity. Labs without any significant acute hematologic abnormality. Patient does have a thrombocytosis of 500. Has elevated inflammatory markers. No acute electrolyte abnormalities, patient did have hypokalemia that was re pleted in the emergency department. Patient did have a transaminitis that downtrended following fluid resuscitation. Patient did not have any abdominal pain, does not drink any alcohol, has not had any other symptoms other than discomfort from his left knee. No history of sexually transmitted infections, no penile discharge. No recent abdominal surgeries. No Tylenol or salicylate ingestion. Patient had a right upper quadrant ultrasound that showed fatty liver otherwise no abnormalities. CT abdomen pelvis with contrast, without any abnormalities. Transaminitis may be likely reactive as an acute phase reaction. Chest x-ray unremarkable. Knee CT showed possible osteomyelitis as well as a complex fluid in the knee joint. An arthrocentesis was performed by overnight provider. Fluid sent for analysis shows 10,000 RBCs, 1441 white blood cells. Discussed case with patient's orthopedic surgeon Dr. Schaffer, states that fluid in the joint following surgery is to be expected, patient had an underlying infection which resulted in him getting fluid accumulation so the findings on CT are to be expected. States that osteomyelitis is not diagnosed on CT. And given that patient has less than 50,000 white blood cells and his arthrocentesis performed today less likely acute infection. He did see the patient in clinic a few days ago, and states that the patient had presented with similar symptoms, and his knee appeared to be progressing appropriately. His wounds look appropriate for the stage in healing that they were. States patient is safe for discharge to home to continue his IV antibiotics through his PICC line at home. Given downtrending LFTs and clinical improvement in the patient as well as consult from the orthopedic surgeon, patient will be discharged to home with cl ose return precautions follow-up with his primary care doctor. Total critical care time: Approximately?45?minutes Due to a high probability of clinically significant, life threatening deterioration, the patient required my highest level of preparedness to intervene emergently and I personally spent this critical care time directly and personally managing the patient. This critical care time included obtaining a history; examining the patient; pulse oximetry; ordering and review of studies; arranging urgent treatment with development of a management plan; evaluation of patient's response to treatment; frequent reassessment; and, discussions with other providers. This critical care time was performed to assess and manage the high probability of imminent, life-threatening deterioration that could result in multi-organ failure. It was exclusive of separately billable procedures and treating other patients and teaching time. Please see MDM section and the rest of the note for further information on patient assessment and treat
[2025-05-24 06:54] LABS: Alanine Aminotransferase 447 U/L (10-49); Albumin, Serum 3.0 gm/dL (3.5-5.0); Alkaline Phosphatase 531 U/L (46-116); Aspartate Amino Transferase 534 U/L (0-34); Bilirubin,Direct 0.1 mg/dL (0.0-0.3); Bilirubin,Total 0.3 mg/dL (0.3-1.2); Total Protein 5.9 gm/dL (5.7-8.2)
[2025-05-24 07:10] VITALS: BP 118/79; PULSE 75; RESP 18; TEMP 37.3; O2SAT 98
[2025-05-24] MEDS: cefTRIAXone/D5w 1gm IV premix 1 GM/50 ML BAG IV (07:42)
[2025-05-24] MEDS: MORPHINE SULF INJ 4 MG/ML VIAL IVP ×2 (07:57→11:00)
[2025-05-24 08:23] LABS: Alanine Aminotransferase 453 U/L (10-49); Albumin, Serum 2.9 gm/dL (3.5-5.0); Albumin/Globulin Ratio 1.1 (1.2-2.2); Alkaline Phosphatase 556 U/L (46-116); Anion Gap 8 (7-16); Aspartate Amino Transferase 543 U/L (0-34); BUN/Creatinine Ratio 15 Ratio (12-20); Bilirubin,Total 0.3 mg/dL (0.3-1.2); Blood Urea Nitrogen 9 mg/dL (9-23); Calcium 7.6 mg/dL (8.3-10.6); Calcium (Corrected) 8.5 mg/dL (8.5-10.1); Carbon Dioxide 24.4 mMol/L (20.0-31.0); Chloride 107 mMol/L (98-107); Creatinine (Component) 0.6 mg/dL (0.6-1.3); Estimated Creatinine Clearance 133.9 mL/min (>60); Globulin 2.7 gm/dL (2.3-3.5); Glucose 84 mg/dL (74-106); Osmolality,Calculated 275 (275-295); Potassium 4.2 mMol/L (3.4-5.1); Sodium 139 mMol/L (136-145); Total Protein 5.6 gm/dL (5.7-8.2); eGFR > 60 See Note
[2025-05-24] MEDS: VANCOMYCIN/D5W 1500 MG IVPB 300 ML 120 MG IV (08:28)
--- NOTE | 2025-05-24 08:31 | PC.CC ---
0831: called [facility] to cancel transfer request. 0830: Called [facility] to cancel transfer request 0829: called [facility] to cancel transfer request 0827: Received call from Dr. Rahman, she stated she discussed this case with Dr. Schaffer and will cancel the transfer request. 0820: clinicals and imaging sent to [facility] and Mariah. Clinicals sent to [facility] 0810: Dr Rahman request transfer for ortho for fluid in the knee s/p I&D with Dr. Schaffer. Dr. Rahman attempted to reach out to Dr. Schaffer, no answer. proceed with transfer request
[2025-05-24 10:55] VITALS: BP 127/82; PULSE 84; RESP 18; TEMP 38.1; O2SAT 85
[2025-05-24] MEDS: CALCIUM CARBONATE 600 MG TABLET PO (11:01)
[2025-05-24 11:25] VITALS: TEMP 38.1
[2025-05-24] MEDS: KETOROLAC INJ 30 MG/ML VIAL 15 MG IVP (11:25)
[2025-05-26 08:07] LABS: Misc Send Out* See Sep Rpt
[2025-05-30 07:05] LABS: Glucose,Synovial Fluid* 76 mg/dL
== END 2025-05-24 11:30 | disposition home or self-care (01) ==
PROVIDERS: Emergency Medicine; Physician Assistant; Emergency Provider Emergency Medicine
DX: M00.862 Arthritis due to other bacteria, left knee (principal)
CPT/HCPCS: 36415; 71045; 73701; 74177; 76705; 80053; 80074; 80076; 80320; 80329; 82945; 83605; 83690; 84145; 84443; 84560; 85025; 85610; 85652; 85730; 86140; 87040; 87070; 87205; 87502; 87811; 89051; 96361; 96365; 96366; 96375; 96376; 99285; A4649; J0696; J1885; J2270; J3373; J7030; Q9967; A9270; G0480

== ENCOUNTER 2025-06-03 16:36 | Emergency (ER) | payer MEDICAID, SELFPAY ==
[2025-06-03 16:44] VITALS: PULSE 62; O2SAT 99; BMI 25.7
[2025-06-03 16:45] VITALS: BP 129/73; PULSE 55; RESP 16; TEMP 36.6; O2SAT 99
--- NOTE | 2025-06-03 16:46 | XR_ITS ---
EXAMINATION: AP chest single view TECHNIQUE: AP portable upright chest single view Date and time: June 03, 2025, 1657 hours, comparison May 23, 2025 INDICATIONS: Syncope weakness today FINDINGS: Mild prominence left ventricle No aspiration pneumonia. No pulmonary edema. Left arm dual-lumen PICC line tip SVC Osseous structures intact IMPRESSION: No active disease
--- NOTE | 2025-06-03 16:46 | EKG_ITS ---
[facility] Test Date: 2025-06-03 Pat Name: ROSMERY RIOJAS Department: Room: - Gender: Male Sole Splitter: : 1980 Requested By: Ana Luisa Awad Order Number: [id number] Reading MD: Ana Luisa Awad Measurements Intervals [place] Rate: 58 P: 10 MS: 126 QRS: 13 QRSD: 107 T: 25 QT: 427 QTc: 422 Interpretive Statements SINUS BRADYCARDIA NONSPECIFIC T-WAVE ABNORMALITY No previous ECG available for comparison /store/S0/[id number]
[2025-06-03] MEDS: SODIUM CHLORIDE 0.9% 1000 ML 1,000 ML 999 ML IV (16:59)
--- NOTE | 2025-06-03 17:17 | PD.EDSYNC ---
ED Syncope RME/HPI General Chief Complaint: Syncope / Near Syncope Stated Complaint: SEIZURES Time Seen by Provider: 06/03/25 16:45 Arrival date/time: 06/03/25 16:36 Limitations: no limitations RME / HPI RME / HPI narrative: 45 year old male with history of septic arthritis of the left knee joint and left calf abscess with wound cultures positive for MSSA, underwent I&D by ortho Dr. Schaffer on 05/07/2025 and discharged home with PICC line for continued IV antibiotics (scheduled through 06/04/2025) presents to the ED BIBA from PCP office for witnessed syncopal episode today. Per medics, patient was sitting in a chair waiting to be seen when staff noticed patient leaned to the side and lost consciousness for about ~ 30 seconds. No seizure activity was reported. Medics state on scene, the patient was hypotensive SBP 78 and prehospital BS 107. In the ED, patient reports 1 week ago he had a fever though no subsequent fevers since. Additionally states in the last week, he has had nausea, decreased appetite and decreased oral intake. No associated abdominal pain. No other associated symptoms reported. Related Data Previous Rx's ?Medication ?Instructions ?Recorded ibuprofen 600 mg tablet 600 mg PO QID PRN pain #40 tabs 05/23/21 Allergies Allergy/AdvReac Type Severity Reaction Status Date / Time No Known Allergies Allergy Verified 05/23/25 18:13 Review of Systems Review of Systems Systems Reviewed: All systems reviewed, normal except as documented Past Medical History Past Medical History CARDIAC: Negative Cardiac Disorders or Congestive Heart Failure RESPIRATORY: Negative Chronic Obstructive Pulmonary Disease (COPD) or Asthma GENITOURINARY: Negative Renal Disease ENDOCRINE: Negative Diabetes Mellitus Type 1 or Diabetes Mellitus Type 2 HEMATOLOGIC: Negative Sickle Cell Disease Social History SMOKING STATUS: Never smoker ED Exam General Limitations: Present no limitations General appearance: Present alert and other (appears pale, awake, answering questions appropriately ) Head Head exam: Present atraumatic, normocephalic and normal inspection Eye Eye exam: Present normal appearance, PERRL and EOMI ENT ENT exam: Present normal exam, normal oropharynx and mucous membranes moist Neck Neck exam: Present normal inspection, full ROM and trachea midline Chest Chest inspection: Present normal inspection and symmetric chest wall rise Respiratory Respiratory exam: Present normal lung sounds bilaterally Cardiovascular Cardiovascular exam: Present regular rate, normal rhythm and normal heart sounds Abdominal Exam Abdominal exam: Present soft and normal bowel sounds Extremities Exam Extremities exam: Present full ROM and other (There are two linear surgical scars noted on the left leg, 9cm linear surgical incision on the knee that is well healed c/d/i, no redness/increased warmth/swelling. 8cm linear scar medial to the knee that is healing well with steri-strips, c/d/i, no redness/increased warmth/swelling, no puss. ) Expanded Upper Extremity Exam Arm exam: Present other (PICC line in the left upper extremity, c/d/i. ) Expanded Lower Extremity Exam Knee exam: Present other (Patient is able to bend knee 45-60 degrees. ) Back Exam Back exam: Present normal inspection and full ROM Neurological Exam Neurological exam: Present alert, oriented X3 and CN II-XII intact Psychiatric Psychiatric exam: Present normal affect and normal mood Skin Skin exam: Present warm, dry, intact and normal color Course Quality Measures none Orders Category Date Time Status EKG (ED ONLY) *Do not use* NOW Care 06/03/25 16:46 Completed CXRP [XR chest 1V portable] Stat Exams 06/03/25 16:46 Completed EKG (ED Only) Stat Exams 06/03/25 16:46 Draft CBC Stat Lab 06/03/25 17:56 Completed CMP [Comprehensive Metabolic Panel] Stat Lab 06/03/25 17:56 Received Lactic Acid [Lactate (Lactic Acid)] Stat Lab 06/03/25 17:56 Completed Procalcitonin Stat Lab 06/03/25 17:56 Received Troponin I Stat Lab 06/03/25 17:56 Received Urinalysis Stat Lab 06/03/25 16:47 Ordered Urine Culture Stat Lab 06/03/25 16:47 Ordered Sodium Chloride 0.9% 1000 ml [Ns] 1,000 ml Med 06/03/25 16:46 Discontinued IV 999 mls/hr Vital Signs Vital signs: Vital Signs Temperature 97.9 F 06/03/25 16:45 Pulse Rate 55 L 06/03/25 16:45 Respiratory Rate 16 06/03/25 16:45 Blood Pressure 129/73 06/03/25 16:45 Pulse Oximetry (%) 99 06/03/25 16:45 Oxygen Delivery Method Room Air 06/03/25 16:45 Pulse ox is 99% on room air which is adequate. Syncope MDM Narrative MDM Narrative:: I, Sangita Kurtz, am scribing for and in the presence of Dr. Spears. 45 year old male with history of septic arthritis of the left knee joint and left calf abscess with wound cultures positive for MSSA, underwent I&D by ortho Dr. Schaffer on 05/07/2025 and discharged home with PICC line for continued IV antibiotics (scheduled through 06/04/2025) presented with syncope, the patient states that he has not been drinking fluids. EKG here is normal sinus with bradycardia rate of 58. Otherwise all labs are pending. Differential diagnosis includes dehydration, lecture abnormality, arrhythmia, worsening underlying infection. While in the emergency department the patient had IV fluids started and initial blood pressure is 129/73. He is afebrile and otherwise the white count is 8 with a hemoglobin of 10 which is his baseline. The patient's BUN/creatinine is still pending. Lactic acid is 0.7. Chest x-ray does not show pneumonia. Chest x-ray is reviewed and interpreted by me. 1800p: Patient signed out to Dr. Garrett pending labs and final disposition. Patient data External records reviewed:: [facility] previous records and EMS form Clinical information provided by:: patient and EMS Social determinants that could affect healthcare access:: none Patient has the following chronic illnesses:: septic arthritis of the left knee joint and left calf abscess with wound cultures positive for MSSA, underwent I&D by angela Schaffer on 05/07/2025 and discharged home with PICC line for continued IV antibiotics (scheduled through 06/04/2025) How is presenting disease/condition affected by chronic disease/condition?: exacerbated by Evaluation data The following diagnostics were reviewed and interpreted by me:: lab results, radiology exam(s) and EKG tracing(s) (EKG @ 16:49h. Sinus bradycardia, rate 58, no STEMI, [place] interval 126ms, QTc 422ms. ) Lab and/or radiology exams considered but not ordered:: None Interpretation Summary: Ordering Physician: Ana Luisa Spears MD Date of Service: 06/03/25 Procedure(s): XR chest 1V portable Accession Number(s): [id number] cc: Lowell Arevalo MD; Ana Luisa Spears MD~ EXAMINATION: AP chest single view TECHNIQUE: AP portable upright chest single view Date and time: June 03, 2025, 1657 hours, comparison May 23, 2025 INDICATIONS: Syncope weakness today FINDINGS: Mild prominence left ventricle No aspiration pneumonia. No pulmonary edema. Left arm dual-lumen PICC line tip SVC Osseous structures intact IMPRESSION: No active disease Dictated By: Lowell Arevalo MD Signed By: <Electronically signed by Lowell Arevalo MD in OV> 06/03/25 1709 Medications / Prescriptions Medications or Prescriptions considered but not ordered:: None Medication administrations:: Medication Administration History Discontinued Medications Sodium Chloride (Ns) 1,000 mls @ 999 mls/hr IV .Q1H1M ONE Stop: 06/03/25 17:46 Last Infusion: 06/03/25 17:49 Dose: Infused Documented By: Admin: 06/03/25 16:59 Dose: 999 mls/hr Documented By: FC See above Consultations Consultation(s) initiated? (list below): No Diagnosis Syncope Differential Diagnosis: syncope due to orthostatic hypotension, vasovagal syncope and dehydration Most likely diagnosis given after review of the tests above:: Syncope Admission Indicated Admission indicated?: not indicated Explain why admission is indicated or not indicated:: Signed out pending final disposition. Admission Request Was there a request for admission?: No Disposition Plan Disposition Plan: other (specify) (Signed out to Dr. Garrett ) Discharge Plan Prescriptions/Referrals Prescriptions/Med Rec: No Action ibuprofen 600 mg tablet 600 mg PO QID PRN (Reason: pain) Qty: 40 0RF Referrals: Rafita Cota FNP-C [Primary Care Provider] - In 1 week Problem List Clinical Impression: Syncope Patient/Caregiver Discharge Instructions Print Language: Guatemalan
[2025-06-03 18:07] LABS: Lactate (Lactic Acid) 0.7 mMol/L (0.4-2.0)
[2025-06-03 18:09] VITALS: BP 101/74; PULSE 66; RESP 15; TEMP 36.5; O2SAT 97
[2025-06-03 18:09] LABS: Basophils # (Auto) 0.1 Thou/mm3 (0.0-0.2); Basophils % (Auto) 1 % (0-2.5); Eosinophils # (Auto) 0.1 Thou/mm3 (0.0-0.5); Eosinophils % (Auto) 1 % (0-10); Hematocrit 33.7 % (41.0-53.0); Hemoglobin 10.8 g/dL (13.5-16.0); Immature Granulocytes Auto 0.16 Thou/mm3 (0.00-0.00); Lymphocytes # (Auto) 1.7 Thou/mm3 (1.0-4.8); Lymphocytes % (Auto) 21 % (10-50); Mean Corpuscular HGB Conc 32.0 g/dl (31.0-37.0); Mean Corpuscular Hemoglobin 28.2 pg (25.0-35.0); Mean Corpuscular Volume 88 fL (80-100); Monocytes # (Auto) 1.8 Thou/mm3 (0.0-0.8); Monocytes % (Auto) 23 % (0-12); Neutrophils # (Auto) 4.2 Thou/mm3 (1.8-7.7); Neutrophils % (Auto) 53 % (37-80); Nucleated Red Blood Cell # 0.00 Thou/mm3 (0.00-0.00); Nucleated Red Blood Cell % 0 /100 WBC (0); Platelet Count 408 Thou/mm3 (140-440); RDW Standard Deviation 44.8 fL (35.1-43.9); Red Blood Count 3.83 Miln/mm3 (4.50-5.90); White Blood Count 8.0 Thou/mm3 (3.8-10.6)
--- NOTE | 2025-06-03 18:30 | PD.EDADDENDU ---
Emergency Room Addendum <Marybeth Cortes - Last Filed: 06/03/25 19:22> Addendum Narrative: 1800: Care assumed from Dr. Spears (emergency physician). Past medical, surgical, social and family history reviewed. Vitals and home medications reviewed. Results and treatment plan discussed. I will assume the care of the patient at this time and will follow the patient, pending labs. The following addendum documentation note is intended to reflect any pending information, findings, or radiology results not included in the patient?s initial chart by the previous shift scribe. <Lizandro GarrettDO - Last Filed: 06/03/25 19:24> Addendum Narrative: 1800: Care assumed from Dr. Spears (emergency physician). Past medical, surgical, social and family history reviewed. Vitals and home medications reviewed. Results and treatment plan discussed. I will assume the care of the patient at this time and will follow the patient, pending labs. The following addendum documentation note is intended to reflect any pending information, findings, or radiology results not included in the patient?s initial chart by the previous shift scribe. I went to examine the patient at 7:20 PM. Patient is in stable condition. Last blood pressure was 142/86. Patient has not been hypotensive here in the emergency room. Apparently the patient had a syncopal episode with hypotension at a doctor's office today. He is currently receiving IV antibiotics through a PICC line for septic left knee that required washout recently. Patient feels well and wishes to go home. I reviewed all labs. There was no significant abnormality. Patient received IV fluid while here in the emergency room. Patient will be discharged in stable condition.
[2025-06-03 18:38] LABS: Alanine Aminotransferase 38 U/L (10-49); Albumin, Serum 3.7 gm/dL (3.5-5.0); Albumin/Globulin Ratio 1.4 (1.2-2.2); Alkaline Phosphatase 151 U/L (46-116); Anion Gap 12 (7-16); Aspartate Amino Transferase 26 U/L (0-34); BUN/Creatinine Ratio 8 Ratio (12-20); Bilirubin,Total 0.3 mg/dL (0.3-1.2); Blood Urea Nitrogen 5 mg/dL (9-23); Calcium 8.5 mg/dL (8.3-10.6); Calcium (Corrected) 8.7 mg/dL (8.5-10.1); Carbon Dioxide 22.4 mMol/L (20.0-31.0); Chloride 106 mMol/L (98-107); Creatinine (Component) 0.6 mg/dL (0.6-1.3); Estimated Creatinine Clearance 130.2 mL/min (>60); Globulin 2.7 gm/dL (2.3-3.5); Glucose 95 mg/dL (74-106); Osmolality,Calculated 276 (275-295); Potassium 3.7 mMol/L (3.4-5.1); Procalcitonin 0.11 ng/ml (0.0-0.49); Sodium 140 mMol/L (136-145); Total Protein 6.4 gm/dL (5.7-8.2); Troponin I < 0.002 ng/mL (0.0-0.045); eGFR > 60 See Note
[2025-06-03 19:18] LABS: Collection Type, Urine Voided; Squamous Epithelial Cell,Urine 0 /hpf (0-5)
[2025-06-03 19:30] VITALS: BP 140/77; PULSE 66; RESP 18; TEMP 36.7; O2SAT 96
[2025-06-03 19:31] LABS: Bilirubin,Urine Negative (Negative); Blood,Urine Negative (Negative); Clarity,Urine Clear (Clear/Hazy); Color,Urine Lt-Yellow (Lt Yel-Yel); Glucose, Urine Negative (Negative); Hyaline Casts,Urine < 1 /hpf (0-1); Ketones,Urine Negative (Negative); Leukocyte Esterase,Urine Negative (Negative); Nitrite,Urine Negative (Negative); PH,Urine 7.5 (5.0-7.0); Protein,Urine Trace (Neg - Trace); RBC,Urine 1 /hpf (0-3); Specific Gravity,Urine 1.019 (1.001-1.035); Urobilinogen,Urine Negative mg/dL (0.0-1.0); WBC,Urine 3 /hpf (0-5)
[2025-06-03 21:07] VITALS: BP 132/79; PULSE 64; RESP 14; TEMP 37.1; O2SAT 97
== END 2025-06-03 21:09 | disposition home or self-care (01) ==
PROVIDERS: Emergency Provider Emergency Medicine
DX: R55 Syncope and collapse (principal)
CPT/HCPCS: 36415; 71045; 80053; 81001; 83605; 84145; 84484; 85025; 87086; 93005; 96360; 99283; J7030

== ENCOUNTER 2025-06-26 10:49 | Outpatient (AMB) | payer MEDICAID, SELFPAY ==
[2025-06-26 11:09] VITALS: BP 126/80; PULSE 73; RESP 18; TEMP 36.5; O2SAT 96; BMI 26.8
--- NOTE | 2025-06-26 11:09 | ORTHONT_ITS ---
Vital signs 06/26/25 11:09 Height 1.63 m Height Method Stated Weight 71.327 kg Weight Measurement Method Standing Scale BMI 26.8 BP 126/80 Blood Pressure Source Automatic Cuff Blood Pressure Location Left Upper Arm Position Sitting Respiration 18 Pulse 73 Pulse Source Monitor Temp 97.7 F Temp Source Temporal Artery Scan Pulse Oximetry (%) 96 Oxygen Delivery Method Room Air Med/Allergies Allergies & Medications Allergies No Known Allergies Allergy (Verified 06/26/25 11:11) Medication Reconciliation ibuprofen 600 mg tablet 600 mg PO QID PRN pain #40 tabs 05/23/21 [Rx Confirmed 06/26/25] Exam Exam Patient is in no acute distress and is cooperative with the examination today. Breathing is nonlabored. Patient has a normal mood and affect. The patient has a gait that is nonantalgic Bilateral extremities were evaluated and demonstrates sensation intact to light touch. Palpable pedal pulses are present. No significant edema is present. Bilateral hips were examined. The patient has no pain with log roll of the hips. Internal rotation to 30 degrees and external rotation to 30 degrees is painless. Negative FADIR. Left knee incision is clean dry and intact. Knee feels stable varus valgus stress as well as AP translation. Range of motion is 0 to 110 degrees Assessment and Plan Problem List (1) Abscess of left knee: Status: Acute Plan: ASSESSMENT AND PLAN 1. Postoperative status following left knee irrigation debridement: Patient is doing well s/p left knee and leg washout. He reports that he is doing well. His pain is gone We will se him back as needed. He has been off antibiotics for a while (2) Septic arthritis of knee: Status: Acute Office Procedures GNS Level of Care Nursing/Assessment Patient Status: Established Patient Nursing Assessment/Reassesment: Medication Reconciliation, Update PMH in EMR and Vital Signs Coordination of Care: Complex Care and Chronic Disease 1-5, Education Complex Pt/Fam, Consent,records obtained, informed consent, Results/Orders obtained and Staff clarify orders Established Patient Charge Established Patient Point Assignment: 95 Established Patient Point Charge: EP Level 3 (80-115) MA Intake Visit Data Collection New Patient or Established: Established Patient (seen at [facility] within 3 years) Reason for Visit:: 6 WK LT KNEE FU Seen by Clinical Staff ONLY (RN/MA): No Verbal consent obtained for Telemed visit?: No Manager Environmental Affairs Required: Yes PCP or OBGYN visit in last 3 months: Yes Hx Now: No Do You Feel Safe at Home: Yes Authorities Contacted: N/A Questionairres Past Medical History Past Medical History Have you ever been diagnosed with any of the following: Cardiology Problems Congestive Heart Failure: No Respiratory Problems Chronic Obstructive Pulmonary Disease (COPD): No Asthma: No Genital/Urinary Problems Renal Disease: No Endocrine Problems Diabetes Mellitus Type 1: No Diabetes Mellitus Type 2: No Blood Problems Sickle Cell Disease: No Subjective Visit Visit for: follow up visit and knee Immunization / Flu Flu Vaccine in the Last 12 Months: No Flu Vaccine Exclusion Criteria: No Exclusion Criteria History of Present Illness Chief complaint: Left septic knee and leg abscess status post surgery HISTORY OF PRESENT ILLNESS I, Ez Schaffer, have obtained verbal consent from the patient, to be recorded during this encounter which may include, but not limited to, medical history, examination, treatment plans, and relevant health information.? Patient was informed that recording will be read and reviewed by myself before inclusion in the medical chart. The patient is a 45-year-old male who presents for evaluation of left knee infection. He reports that he has no pain now and that he is doing well. He is 6 weeks postop. He reports that he is doing well and reports significant pain relief from surgery Personal History Occupation: DISABLE Pain Pain level (0-10): 0 Ambulatory data Ambulatory device: other (specify) (WHEELCHAIR) Treatments Improvement with previous injections: No Improvement with PT: No Improvement with NSAIDS: no Review of Systems Review of Systems: All systems negative unless otherwise noted in HPI.
== END 2025-06-26 11:32 | disposition home or self-care (01) ==
LOC: HODSRG 10:49
PROVIDERS: Supervising Provider Orthopaedic Surgery Adult Reconstructive Orthopaedic Surgery; Visit Provider Orthopaedic Surgery Adult Reconstructive Orthopaedic Surgery
DX: Z48.817 Encounter for surgical aftercare following surgery on the skin and subcutaneous tissue (principal); M00.9 Pyogenic arthritis, unspecified
CPT/HCPCS: 99213; G0463